=== PATIENT | male | born 1945 | race Caucasian/White ===

== ENCOUNTER 2020-12-10 16:17 | Inpatient (IN) | payer OTHER ==
[2020-12-10] MEDS ORDERED: CEFEPIME 2 GM VIAL IV SCH (18:00)
[2020-12-10 19:38] LABS: Basophils % 0.4 % (0-1.3); Hematocrit 29.4 % (39.6-49.0); Lymphocytes % 5.1 % (15.3-44.8); MPV 8.5 fL (7.6-11.3); Protime INR 1.33; RBC Red Blood Cell Count 3.49 M/uL (4.33-5.43)
[2020-12-10 19:40] LABS: Albumin 2.5 g/dL (3.4-5.0); Bilirubin Total 0.3 mg/dL (0.2-1.0); Potassium 4.5 mmol/L (3.5-5.1); Protein, Total 7.1 g/dL (6.4-8.2)
--- NOTE | 2020-12-10 20:23 | RAD REPORT ---
EXAM DESCRIPTION: RAD - Chest Pa And Lat (2 Views) - 12/10/2020 7:35 pm CLINICAL HISTORY: fever and preop COMPARISON: No comparisons FINDINGS: Lines: None. Lungs: Linear opacities in the left mid lung and right lung base. Pleural: Small left pleural effusion . Cardiac: The heart size is within normal limits. Bones: No acute fractures. Other: Surgical clips overlying the left lung apex. IMPRESSION: Small left effusion with bilateral linear basilar opacities that may reflect atelectasis , pneumonia, and/or scarring.
[2020-12-10] MEDS ORDERED: ONDANSETRON 4 MG/2 ML VIAL IV PRN (20:44)
[2020-12-10] MEDS ORDERED: Ringers Lactate 1,000 ML IV SCH (21:00)
[2020-12-10] MEDS: GABAPENTIN 300 MG CAP PO SCH (21:00)
[2020-12-10] MEDS: ATORVASTATIN 20 MG TAB PO SCH (21:00)
[2020-12-10] MEDS: FLUCONAZOLE 100 MG TAB PO SCH (21:00)
[2020-12-10] MEDS: INSULIN -REGULAR HUMAN 50 UNIT/0.5 ML ML SQ SCH (21:00)
[2020-12-10 21:14] LABS: Blood Morphology Comment NOT SEEN (NOT SEEN); Platelet Estimate ADEQ
[2020-12-10] MEDS: CEFEPIME 2 GM in NA CHLORIDE 0.9% 100 ML IV SCH (23:00)
[2020-12-10] MEDS ORDERED: Gentamicin Inj 120 MG in NA CHLORIDE 0.9% 100 ML IVPB SCH (23:00)
[2020-12-10] MEDS ORDERED: FLUCONAZOLE 100 MG TAB ONE (23:41)
[2020-12-11] MEDS ORDERED: BACITRACIN OINTMENT 14 GM TUBE TOP PRN (00:10)
[2020-12-11] MEDS ORDERED: CEFEPIME 1 GM/VIAL ONE (00:11)
[2020-12-11] MEDS ORDERED: GENTAMICIN SULF 80 MG/2ML INJ ONE (00:12)
[2020-12-11] MEDS ORDERED: GENTAMICIN 80 MG/100 ML BAG 0 MG/0 ML BAG IV ONE (00:13)
[2020-12-11] MEDS: HEPARIN 5000 UNIT/ML 1 ML VIAL SQ SCH ×4 (01:00→16:24)
[2020-12-11 01:58] LABS: Absolute Lymphocytes (CBC) 1.1 K/uL (0.7-4.9); Basophils % 0.2 % (0-1.3); Hematocrit 26.3 % (39.6-49.0); Lymphocytes % 6.3 % (15.3-44.8); MPV 8.4 fL (7.6-11.3); RBC Red Blood Cell Count 3.16 M/uL (4.33-5.43)
[2020-12-11 02:11] LABS: Albumin 2.1 g/dL (3.4-5.0); Bilirubin Direct 0.1 mg/dL (0-0.2); Bilirubin Total 0.3 mg/dL (0.2-1.0); Magnesium 1.7 mg/dL (1.8-2.4); Phosphorus 3.9 mg/dL (2.5-4.9); Potassium 4.4 mmol/L (3.5-5.1); Protein, Total 6.5 g/dL (6.4-8.2)
[2020-12-11 03:05] VITALS: BMI 34.5
--- NOTE | 2020-12-11 06:57 | HP ---
Date of Admission: 12/10/2020 Chief Complaint: Fever and chills. History Of Present Illness: Mr. Vee is a 75-year-old gentleman with type 2 diabetes, history of carotid stenosis with a stent, on aspirin and Plavix, hyperlipidemia, chronic renal insufficiency, and CHF, on Lasix with a history of urothelial carcinoma of the bladder treated by an outside urolog ist over the years. He initially was treated with BCG induction course with recurrences that would t ypically occur more than 6 to 9 months later. He never received a maintenance course of BCG, and on his most recent evaluation by an outpatient urologist, he was noted to have bilateral upper tract gato picious cytologies along with suspicious voided cytologies despite random biopsies performed by them, which found no evidence of malignancy. When I met the patient at the [facility] in [place], I co unseled the patient on the need for repeat operative evaluation and he underwent that at [facility] in the [facility] approximately 1-1/2 months ago. 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 Associated with that, cytology sent from the right renal unit revealed positive for suspicion of urothelial carcinoma. Additionally, the left side orifice was completely stenotic and would not admi t a catheter to perform a retrograde on that side. As such, I resected the left ureteral orifice and the pathology on that side revealed CIS of the bladder. Subsequent placement of a left percutaneous nephroureteral stent was performed about a week and a half ago and the report from the interventiona l radiologist at [facility] in [place] revealed the presence of a mass or stricture in the distal u reter, which they dilated in order to place the nephroureteral stent. The patient is currently sched uled for definitive operative evaluation of the left side with ureteroscopy and plans to internalize the left ureteral stent and remove the nephrostomy tube if possible and also to repeat the retrograde pyelogram on the right side to assess whether the fistula had healed, since I have maintained him ov er the last 6 to 8 weeks with a urethral Lakhnai catheter in place in addition to the stent that was pl aced approximately 2 months ago in order to allow that fistula to hopefully heal and seal. However, in preparation for surgery, which was scheduled next Thursday, the patient called the office today exp laining that he was having fever and chills up to 101 Fahrenheit. When I spoke to the patient this e vening, he confirmed that he had been having fever since yesterday, and he also was having active rig ors upon my evaluation of him. He also noted that today, he had an episode of nausea and vomiting. He, otherwise, denied any abdominal pains or specific flank pains. He had previously had some pain a round the nephrostomy tube site upon his last clinic evaluation about 2 weeks ago. He also noted the presence of some significant suprapubic discomfort, which was relieved by the use of ibuprofen. Past Medical History: As indicated above. Past Surgical History: Again, as indicated in the HPI. Allergies: CIPROFLOXACIN AND SILODOSIN. Medications: Baby aspirin 81 mg daily, Lipitor 40 mg daily, Plavix 75 mg daily, finasteride 5 mg yasmani ly, Uroxatral 10 mg daily, Lasix 20 mg p.o. daily, gabapentin 300 mg p.o. daily, and some other vitam ins and supplements. Physical Examination: General: The patient is awake, alert, and oriented x3. He is in mild distress due to some shaking chills. He has no dyspnea or use of accessory muscles to breathe and there is no active cough. Abdomen: Obese, but soft, nontender and no masses are palpable. The nephrostomy tube is in good position with no tenderness around the insertion site. Genitalia: The urethral Lakhani catheter is in place and there is no sign of meatal erosion. The test es are bilaterally descended and the left testis was mildly tender to palpation. There was no scrota l abnormality noted. Extremities: Lower extremities without edema or calf tenderness/Jeannette sign. I thus assessed the nephrostomy tube by irrigating it gently with 10 cc of preservative-free normal s nafisa after cleansing the opening with an alcohol wipe where I it from the nephrostomy bag. The tube flushed easily and did aspirate some cloudy, but yellow urine. The urine in the bag was o ld dark hematuria appearing. There was no significant urine within the Lakhani catheter bag and the patient notes that the output edgar s been very minimal there. Laboratory: Laboratory analysis on 12/10/2020: White blood count was elevated to 20.1, hemoglobin 9 .3, and platelet count 324 with a left shift, PT/INR 1.33. Creatinine 2.21 with an EGFR of 29 and glucose 155. COVID test negative. Chest x-ray reviewed and notes of small left effusion with bilateral linear basilar opacities that ma y reflect atelectasis, pneumonia, and/or scarring, which in his case likely represents some of the se quelae of his underlying CHF. Assessment And Recommendations: This is a 75-year-old gentleman with type 2 diabetes, carotid stenos is with a stent, on aspirin and Plavix, congestive heart failure, on Lasix, hyperlipidemia, and uroth elial carcinoma of the bladder plus CIS involving the bladder and likely the bilateral upper tracts w ith a right renal pelvic fistulous injury from outside urologist biopsy, now post placement of a left nephroureteral stent due to likely malignant mass or stricture in the distal left ureter at the UVJ with Pseudomonas urinary tract infection causing systemic inflammatory response syndrome and possible early sepsis. We will obtain blood cultures x2 probably and initiate IV antimicrobial therapy double covering the P seudomonas with cefepime 2 g daily and gentamicin 120 mg daily extended interval dosing targeting bet ween 2 and 3 mg/kg synergistic dosing with the cefepime for the Pseudomonas. For his fever, we will provide Tylenol 1000 mg every 6 hours as needed. We will continue his daily baby aspirin and Plavix for now. The Plavix will be held on with the last dose given Thursday in preparation for his surgery next Thursday. We will continue his finasteride, Lasix, and atorvastatin in substitution for his Lipitor/simvastatin . Subcu heparin will be provided for deep venous thrombosis prophylaxis. Insulin sliding scale will be provided in substitution for his metformin for management of his diabet es. We will continue the lisinopril for his blood pressure. We will provide Zofran for nausea. We will also provide a 3-day course of fluconazole for the fungus also identified in his urine, which may be a minor contributor to his complicated infection. While it is likely the blood cultures will return negative, since the patient was taking a dose or a prescription for cefepime that he had been given from an outside emergency department at [facility], this will obscure potentially the presence of any active sepsis. As a result, once the patien t is afebrile for 24 hours, we will plan discharge likely with a PICC line to continue the cefepime o nce daily dosing at home and continue through the date of surgery likely for completion of a 14-day c ourse. Gentle IV fluids for insensible losses will also be provided and we will continue the Lasix. FIDELIA/AIDA Voice ID: [id number]
[2020-12-11] MEDS: INSULIN -REGULAR HUMAN 50 UNIT/0.5 ML ML SQ SCH ×4 (07:30→21:00)
[2020-12-11] MEDS ORDERED: INFLUENZA VACCINE (for 6+ mo) 0.5 ML DOSE IMVAC ONE (08:00)
[2020-12-11] MEDS ORDERED: PNEUMOCOCCAL VACCINE 0.5 ML IMVAC ONE (08:00)
[2020-12-11] MEDS: NA CHLORIDE 0.9% 1,000 ML IV SCH ×2 (08:00→21:58)
[2020-12-11] MEDS: ASPIRIN EC 81 MG TAB PO SCH ×3 (08:51→09:00)
[2020-12-11] MEDS: FLUCONAZOLE 100 MG TAB PO SCH (08:51)
[2020-12-11] MEDS: FINASTERIDE 5 MG TAB PO SCH (08:52)
[2020-12-11] MEDS: CLOPIDOGREL 75 MG TABLET PO SCH ×3 (08:52→09:00)
[2020-12-11] MEDS: ACETAMINOPHEN 500 MG TAB PO PRN ×2 (08:54→16:26)
[2020-12-11] MEDS: BACITRACIN OINTMENT 14 GM TUBE TOP SCH (09:00)
[2020-12-11] MEDS ORDERED: lisinopriL 20 MG TAB PO SCH ×2 (09:00→11:26)
[2020-12-11] MEDS: FUROSEMIDE 20 MG TABLET PO SCH (09:00)
--- NOTE | 2020-12-11 16:42 | P.PN ---
Subjective Date of Service: 12/11/20 Chief Complaint: fever Subjective: Improving Intermittent fevers but no nausea/vomiting. Eating breakfast. Physical Examination - Vital Signs Temperature: 99.6 F Blood Pressure: 94/45 Pulse: 92 Respirations: 20 Pulse Ox (%): 91 - Physical Exam General: Alert, In no apparent distress HEENT: Atraumatic, Normocephalic, Mucous membr. moist/pink Respiratory: Normal air movement Neurological: Normal speech Urinary: Lakhani catheter, Other - Studies Laboratory Data (last 24 hrs) 12/11/20 05:00: Sodium Cancelled, Potassium Cancelled, BUN Cancelled, Creatinine Cancelled, Glucose Cancelled 12/11/20 01:38: Sodium 133 L, Potassium 4.4, BUN 33 H, Creatinine 2.20 H, Glucose 128 H, Phosphorus 3.9, Magnesium 1.7 L, Total Bilirubin 0.3, AST 12 L, ALT 15, Alkaline Phosphatase 74, Lipase 251 12/11/20 01:38: WBC 18.10 H, Hgb 8.4 L, Hct 26.3 L, Plt Count 315 12/10/20 18:59: Sodium 135 L, Potassium 4.5, BUN 31 H, Creatinine 2.21 H, Glucose 155 H, Total Bilirubin 0.3, AST 16, ALT 18, Alkaline Phosphatase 80 12/10/20 18:59: PT 15.3 H, INR 1.33 12/10/20 18:59: WBC 20.10 H*, Hgb 9.3 L, Hct 29.4 L, Plt Count 324 Assessment And Plan - Current Problems (Diagnosis) (1) Complicated UTI (urinary tract infection) Current Visit: Yes Status: Acute - Plan 75yo gentleman with DM2, CKD, carotid stenosis with stent on Plavix + ASA, HTN and hyperlipidemia with iatrogenic right renal pelvic injury resulting in perinephric extravasation requiring a right ureteral stent and Lakhani catheter placement, in the setting of CIS of the bladder and positive upper tract cytologies with CIS at the left UO p NUS placement with Pseudomonas in the urine likely causing a complicated infection, possible urosepsis. - blood cultures pending. Aware of urine cx revealing Pseudomonas sensitive to FQ's, Zosyn, Cefepime, and Meropenem, but because of his Cipro allergy, IV therapy required and being double covered with Cefepime 2g q24h and Gent 120mg (1.5mg/kg) q24h dosing. - continue Plavix till but continue ASA 81mg - DVT ppx with sqHeparin q8h - NS for mild hyponatremia potentially secondary to Lasix routine use or CKD? - Awaiting patient to be afebrile x 24 hours and blood cultures to result to place PICC line for completion of 14 days of Cefepime 2g q24h started 12/10/20 at home on discharge Plan to discharge in: Greater than 2 days - Code Status/Comfort Care Code Status Assessed: Yes Code Status: Full Code
[2020-12-11] MEDS ORDERED: ONDANSETRON 4 MG/2 ML VIAL ONE (17:31)
[2020-12-11] MEDS: ATORVASTATIN 20 MG TAB PO SCH (21:14)
[2020-12-11] MEDS: GABAPENTIN 300 MG CAP PO SCH (22:27)
[2020-12-12] MEDS: CEFEPIME 2 GM in NA CHLORIDE 0.9% 100 ML IV SCH ×2 (00:11→23:48)
[2020-12-12] MEDS: Gentamicin Inj 120 MG in NA CHLORIDE 0.9% 100 ML IVPB SCH ×2 (00:12→23:48)
[2020-12-12] MEDS: HEPARIN 5000 UNIT/ML 1 ML VIAL SQ SCH ×3 (02:09→16:31)
[2020-12-12] MEDS: ACETAMINOPHEN 500 MG TAB PO PRN (02:20)
[2020-12-12] MEDS: INSULIN -REGULAR HUMAN 50 UNIT/0.5 ML ML SQ SCH ×4 (07:30→20:57)
[2020-12-12] MEDS: FINASTERIDE 5 MG TAB PO SCH (08:30)
[2020-12-12] MEDS: FUROSEMIDE 20 MG TABLET PO SCH (08:30)
[2020-12-12] MEDS: CLOPIDOGREL 75 MG TABLET PO SCH (08:31)
[2020-12-12] MEDS: ASPIRIN EC 81 MG TAB PO SCH (08:32)
[2020-12-12] MEDS: FLUCONAZOLE 100 MG TAB PO SCH (08:32)
[2020-12-12] MEDS: BACITRACIN OINTMENT 14 GM TUBE TOP SCH (08:33)
[2020-12-12] MEDS: lisinopriL 20 MG TAB PO SCH (08:34)
[2020-12-12 10:15] LABS: Absolute Lymphocytes (CBC) 1.2 K/uL (0.7-4.9); Basophils % 0.3 % (0-1.3); Hematocrit 26.4 % (39.6-49.0); MPV 8.4 fL (7.6-11.3); RBC Red Blood Cell Count 3.14 M/uL (4.33-5.43)
[2020-12-12 10:24] LABS: Potassium 4.2 mmol/L (3.5-5.1)
[2020-12-12] MEDS: NA CHLORIDE 0.9% 1,000 ML IV SCH ×2 (12:00→20:58)
--- NOTE | 2020-12-12 20:42 | P.PN ---
Subjective Date of Service: 12/12/20 Chief Complaint: fever Subjective: Improving, Doing well Subjective fever overnight but none since the AM. No nausea/vomiting. Eating well. Feeling more back to normal. Physical Examination - Vital Signs Temperature: 98.2 F Blood Pressure: 124/61 Pulse: 84 Respirations: 18 Pulse Ox (%): 90 - Physical Exam General: Alert, In no apparent distress, Oriented x3 Respiratory: Normal air movement Neurological: Normal speech, Normal affect - Studies Laboratory Data (last 24 hrs) 12/12/20 09:55: Sodium 135 L, Potassium 4.2, BUN 40 H, Creatinine 2.20 H, Glucose 109 H 12/12/20 09:55: WBC 11.80 H D, Hgb 8.3 L, Hct 26.4 L, Plt Count 280 Microbiology Data (last 24 hrs): Blood cx's NGTD Assessment And Plan - Current Problems (Diagnosis) (1) Complicated UTI (urinary tract infection) Onset Date: ~12/09/20 Current Visit: Yes Status: Acute - Plan 75yo gentleman with DM2, CKD, carotid stenosis with stent on Plavix + ASA, HTN and hyperlipidemia with iatrogenic right renal pelvic injury resulting in perinephric extravasation requiring a right ureteral stent and Lakhani catheter placement, in the setting of CIS of the bladder and positive upper tract cytolo gies with CIS at the left UO p NUS placement with Pseudomonas in the urine likely causing a complicated infection but no evidence of sepsis, resolving. - blood cultures pending but NGTD. Aware of urine cx revealing Pseudomonas sensitive to FQ's, Zosyn, Cefepime, and Meropenem, but because of his Cipro allergy, IV therapy required and being double covered with Cefepime 2g q24h and Gent 120mg (1.5mg/kg) q24h dosing. - continue Plavix till but continue ASA 81mg - DVT ppx with sqHeparin q8h - NS decreased to 20cc/h - If patient remains afebrile overnight and blood cultures remain NGTD, plan to place PICC line in AM and arrange Home Care for completion of 14 days of Cefepime 2g q24h started 12/10/20 at home on discharge - last dose 12/23/20. - Surgery as scheduled next Thursday. Continue to hold Plavix on discharge but continue ASA 81mg. Discharge Plan: Home Plan to discharge in: 24 Hours Critical Care: No Time Spent Managing PTS Care (In Minutes): 30
[2020-12-12] MEDS: ATORVASTATIN 20 MG TAB PO SCH (20:57)
[2020-12-12] MEDS: GABAPENTIN 300 MG CAP PO SCH (20:57)
[2020-12-13] MEDS: HEPARIN 5000 UNIT/ML 1 ML VIAL SQ SCH ×3 (00:58→17:40)
[2020-12-13 05:14] LABS: Absolute Lymphocytes (CBC) 1.3 K/uL (0.7-4.9); Basophils % 0.2 % (0-1.3); Hematocrit 24.9 % (39.6-49.0); Lymphocytes % 14.3 % (15.3-44.8); MPV 8.2 fL (7.6-11.3); RBC Red Blood Cell Count 2.93 M/uL (4.33-5.43)
[2020-12-13 05:30] LABS: Potassium 4.2 mmol/L (3.5-5.1)
[2020-12-13] MEDS: INSULIN -REGULAR HUMAN 50 UNIT/0.5 ML ML SQ SCH ×4 (07:30→21:00)
[2020-12-13] MEDS: ACETAMINOPHEN 500 MG TAB PO PRN ×2 (08:46→22:46)
[2020-12-13] MEDS: FUROSEMIDE 20 MG TABLET PO SCH (08:47)
[2020-12-13] MEDS: ASPIRIN EC 81 MG TAB PO SCH (08:47)
[2020-12-13] MEDS: lisinopriL 20 MG TAB PO SCH (08:47)
[2020-12-13] MEDS: FINASTERIDE 5 MG TAB PO SCH (08:47)
[2020-12-13] MEDS: BACITRACIN OINTMENT 14 GM TUBE TOP SCH (08:48)
[2020-12-13] MEDS: NA CHLORIDE 0.9% 1,000 ML IV SCH (15:07)
[2020-12-13] MEDS: ATORVASTATIN 20 MG TAB PO SCH (20:11)
[2020-12-13] MEDS: GABAPENTIN 300 MG CAP PO SCH (20:11)
--- NOTE | 2020-12-13 20:40 | P.DS ---
Admission Date: 12/10/20 Discharge Date: 12/14/20 Disposition: DC HOME/HOME HEALTH CARE Discharge Condition: GOOD Reason for Admission: fever Consultations: none Procedures: PICC line and IV abx - Problems (1) Complicated UTI (urinary tract infection) Onset Date: ~12/09/20 Current Visit: Yes Status: Acute Brief History of Present Illness: 75yo gentleman with urothelial Ca of the bladder and CIS recurrent and likely involving the upper tracts in the setting of a right iatrogenic renal pelvic injury causing a fistula into the perinephric space presents s/p right ureteral stent placement and Lakhani catheter with Left PCNU placed over a week ago with complicated UTI with Pseudomonas identified on surveillance culture taken preoperatively. Blood cultures have been NGTD so far and patient's WBC and renal function have all improved with combination Cefepime 2g q24h + Gent 120mg q24h IV. He has been afebrile for >24 hours and his hemodynamic profile has also improved. Home care has been established to continue to provide him with the remaining of 14 days of total therapy with Cefepime 2g daily IV via PICC. He is back to his baseline - tolerating a diabetic diet, making large quantities of urine via PCNU catheter and the Lakhani catheter was removed 2 days ago. He is ready for discharge home and will undergo repeat COVID testing tomorrow in preparation for surgery next Thursday. Hospital Course: Cefepime 2g IV q24h + Gent 120mg IV q24h started 12/10/20 continuing along with Fluconazole 200mg PO daily for 3 days only. Vital Signs/Physical Exam: Temp Pulse Resp BP Pulse Ox 98.7 F 71 20 118/59 L 94 12/13/20 16:00 12/13/20 16:00 12/13/20 16:00 12/13/20 16:00 12/13/20 16:00 General: Alert, In no apparent distress, Oriented x3 HEENT: Atraumatic Respiratory: Normal air movement Gastrointestinal: Soft and benign Musculoskeletal: Other (no Jeannette's sign) Neurological: Normal gait, Normal speech Urinary: Other Laboratory Data at Discharge: WBC 9.00 K/uL (4.3-10.9) D 12/13/20 05:00 Hgb 8.1 g/dL (13.6-17.9) L 12/13/20 05:00 Hct 24.9 % (39.6-49.0) L 12/13/20 05:00 Plt Count 297 K/uL (152-406) 12/13/20 05:00 PT 15.3 SECONDS (9.5-12.5) H 12/10/20 18:59 INR 1.33 12/10/20 18:59 Sodium 140 mmol/L (136-145) 12/13/20 05:00 Potassium 4.2 mmol/L (3.5-5.1) 12/13/20 05:00 BUN 38 mg/dL (7-18) H 12/13/20 05:00 Creatinine 1.86 mg/dL (0.55-1.3) H 12/13/20 05:00 Glucose 96 mg/dL (74-106) 12/13/20 05:00 Phosphorus 3.9 mg/dL (2.5-4.9) 12/11/20 01:38 Magnesium 1.7 mg/dL (1.8-2.4) L 12/11/20 01:38 Total Bilirubin 0.3 mg/dL (0.2-1.0) 12/11/20 01:38 AST 12 U/L (15-37) L 12/11/20 01:38 ALT 15 U/L (12-78) 12/11/20 01:38 Alkaline Phosphatase 74 U/L (45-117) 12/11/20 01:38 Lipase 251 U/L (73-393) 12/11/20 01:38 Home Medications: Gabapentin 300 mg PO DAILY 12/11/20 Simvastatin 20 mg PO DAILY 12/11/20 Atorvastatin Calcium [Lipitor*] 20 mg PO BEDTIME tab 12/13/20 Finasteride [Proscar*] 5 mg PO DAILY tab 12/13/20 Furosemide [Lasix*] 20 mg PO DAILY tab 12/13/20 lisinopriL [Prinivil*] 40 mg PO DAILY tab 12/13/20 Physician Discharge Instructions: Hold plavix but continue aspirin 81mg uninterrupted through surgery. Cefepime 2g IV q24h through 12/23/20 Flush nephrostomy tube and stent with 10cc PFNS q24-48 hours Diet: ADA Activity: Ad ramsey Time spent managing pt's care (in minutes): 45
[2020-12-13] MEDS: CEFEPIME 2 GM in NA CHLORIDE 0.9% 100 ML IV SCH (22:32)
[2020-12-13] MEDS: Gentamicin Inj 120 MG in NA CHLORIDE 0.9% 100 ML IVPB SCH (22:32)
[2020-12-14] MEDS: HEPARIN 5000 UNIT/ML 1 ML VIAL SQ SCH ×3 (00:02→17:00)
[2020-12-14 05:39] LABS: Absolute Lymphocytes (CBC) 1.6 K/uL (0.7-4.9); Basophils % 0.5 % (0-1.3); Hematocrit 26.3 % (39.6-49.0); MPV 8.3 fL (7.6-11.3); RBC Red Blood Cell Count 3.11 M/uL (4.33-5.43)
[2020-12-14] MEDS: INSULIN -REGULAR HUMAN 50 UNIT/0.5 ML ML SQ SCH ×4 (07:30→20:20)
[2020-12-14] MEDS: ACETAMINOPHEN 500 MG TAB PO PRN ×2 (08:40→20:27)
[2020-12-14] MEDS: lisinopriL 20 MG TAB PO SCH (08:41)
[2020-12-14] MEDS: ASPIRIN EC 81 MG TAB PO SCH (08:42)
[2020-12-14] MEDS: BACITRACIN OINTMENT 14 GM TUBE TOP SCH (08:43)
[2020-12-14] MEDS: FINASTERIDE 5 MG TAB PO SCH (08:43)
[2020-12-14] MEDS: FUROSEMIDE 20 MG TABLET PO SCH (08:43)
--- NOTE | 2020-12-14 19:19 | RAD REPORT ---
EXAM DESCRIPTION: RAD - Chest Single View - 12/14/2020 7:08 pm CLINICAL HISTORY: PICC line placement COMPARISON: Chest Pa And Lat (2 Views) dated 12/10/2020 FINDINGS: Lines: Left subclavian approach PICC with tip overlying the proximal SVC. Lungs: Linear opacities in left lung again noted. Increasing bilateral ill-defined airspace opacities . Pleural: Left pleural effusion . Cardiac: Enlarged cardiac silhouette. Bones: No acute fractures. Other: IMPRESSION: Left subclavian approach PICC with tip overlying the proximal SVC in satisfactory positi on. Increasing bilateral airspace disease that could reflect multifocal pneumonia.
[2020-12-14] MEDS ORDERED: NA CHLORIDE 0.9% 100 ML ONE (19:50)
[2020-12-14] MEDS: GABAPENTIN 300 MG CAP PO SCH (20:20)
[2020-12-14] MEDS: ATORVASTATIN 20 MG TAB PO SCH (20:20)
[2020-12-14] MEDS: Gentamicin Inj 120 MG in NA CHLORIDE 0.9% 100 ML IVPB SCH (20:21)
[2020-12-14] MEDS: CEFEPIME 2 GM in NA CHLORIDE 0.9% 100 ML IV SCH (20:22)
[2020-12-14 21:34] VITALS: BP 142/66; TEMP 98
[2020-12-14 22:19] VITALS: O2SAT 93
--- NOTE | 2020-12-17 18:33 | EKG ---
Test Date: 2020-12-14 Test Time: 13:38:31 [employer]: MEASUREMENT RESULTS: Intervals: Rate: 80 ME: 150 QRSD: 142 QT: 394 QTc: 454 [place]: P: 56 ME: 150 QRS: -2 T: -30 INTERPRETIVE STATEMENTS: Normal sinus rhythm Right bundle branch block Abnormal ECG No previous ECG available for comparison Electronically Signed On 12-17-20 18:24:38 DEATH CLEARANCE COORDINATOR by Temo Jackson
--- OUTSIDE RECORDS SUMMARY | 2020-12-22 06:42 | XMS REPORT | Continuity of Care Document ---
:1945 Author Organization [facility] t Address [address] [place] [address] Care Team Providers Name Role Phone Neri He Primary Care Physician PING WOOD Attending Clinician Unavailable NERI HE Attending Clinician Unavailable MILTON HOLLIDAY Attending Clinician Unavailable Jordan Johnson Vaccine - Pfizer Attending Clinician Unavail able CLAUDIA WOOD Attending Clinician Unavailable Nina CASILLAS Attending Clinician Denise Singh MD Attending Clinician Pancho Conway CRNA Attending Clinician Mg Attending Clinician Unavailable Claudia Wood MD Attending Clinician Rod LEON Attending Clinician Unavailable Aly Matthew Attending Clinician Unavailable Francisco Byrd Attending Clinician VASCULAR Attending Clinician Unavailable RUBY Attending Clinician Unavailable ALBER Attending Clinician Unavailable VASCULAR Attending Clinician Unavailable WILBERTO Attending Clinician Unavailable NINA Villatoroitting Clinician Unavailable Payers Payer Name Policy Type Policy Number Effective Date Expiration Date Aly kohler MEDICARE PART A [id number] 2008 AND B 00:00:00 MEDICARE A B [id number] 2008 00:00:00 JASON HMO/POS/OPEN [id number] 2017 ACCESS 00:00:00 FORMERLY [facility] [id number] 2020 00:00:00 OPEN ACCESS PLUS - [id number] CIGNA MEDICARE PART A [id number] \\T\\ B - MEDICARE FOR LIFE - [id number] Problems Condition Condition Condition Status Onset Resolution Last Treating Co mments Source Name Details Category Date Date Treatment Clinician Date 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 0-13 Health kidney kidney 00:00: disease disease 00 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 00 Urine Urine Disease Active 2020-02 UT cytology cytology 0-13 Health abnormal abnormal 00:00: 00 Minor Minor Disease Active 2020-02 UT contusion contusion 0-13 Heal th of right of right 00:00: kidney kidney 00 Malignant Malignant Disease Active 2020-02 UT neoplasm neoplasm 0-13 Health of urachus of urachus 00:00: 00 Malignant Malignant Disease Active [facility] 9[facility] of urinary of urinary 00:00: Me dical bladder bladder 00 Center Renal Renal Disease Active UT hematoma, hematoma, 7-23 Heal th right right 00:00: 00 Abdominal Abdominal Disease Active UT pain pain 7-23 Health 00:00: 00 Hyperchole Hyperchole Disease Active Overview : [facility] sterolemia sterolemia 6-28 [facility] 00:00: g of this 00 note might be different from the original. Formattin g of this note might be different from the original. Converted from Centricit y:Descrip tion - DYSLIPIDE MIALast Assessmen t & Plan: Formattin g of this note is different from the original. ASSESSMEN T:The patient's hyperlipi demia is unchanged Diagnosti cs Reviewed: BP Readings from Last 3 Encounter s: 12/22/18 126/74 07/26/18 140/70 05/10/18 128/62 The 10-year ASCVD risk score (Juaquin MAURO Jr., et al., 2013) is: 26.9% Values used to calculate the score: Age: 73 years Sex: Male Is Non-Hispa pham : No Diabetic: No Tobacco smoker: No Systolic Blood Pressure: 126 mmHg Is BP treated: Yes HDL Cholester ol: 42 mg/dL Total Cholester ol: 152 mg/dLPLAN :Check appropria te labs. Continue medicine at current dose. We'll adjust pending lab results if needed. Keep up with specialis tsReturn 06/2019 for HTN / chronic med visit AND SOONER if other issues arise Chronic Chronic Disease Active Overview: [facility] obstructiv obstructiv 08-06 [facility] e e 00:00: g of this pulmonary pulmonary 00 note disease disease might be different from the original. [facility] of this note might be different from the original. Converted from Centricit y:Descrip tion - COPDLast Assessmen t & Plan: [facility] of this note might be different from the original. assessmen t:Control ledPlan:m eds refilledC ontinue at current dosesKeep up with specialis tsFu with me 11/2018 - fasting medicare wellness Hyperlipid Hyperlipid Disease Active Overview : MD emia emia 08-06 [facility] 00:00: g of this 00 note might be different from the original. [facility] of this note might be different from the original. Converted from Centricit y:Descrip tion - DYSLIPIDE MIALast Assessmen t & Plan: Formatt[facility] g of this note is different from the original. ASSESSMEN T:The patient's hyperlipi demia is unchanged Diagnosti cs Reviewed: BP Readings from Last 3 Encounter s: 12/22/18 126/74 07/26/18 140/70 05/10/18 128/62 The 10-year ASCVD risk score (Brightwatersliliam MAURO Jr., et al., 2013) is: 26.9% Values used to calculate the score: Age: 73 years Sex: Male Is Non-Hispa pham : No Diabetic: No Tobacco smoker: No Systolic Blood Pressure: 126 mmHg Is BP treated: Yes HDL Cholester ol: 42 mg/dL Total Cholester ol: 152 mg/dLPLAN :Check appropria te labs. Continue medicine at current dose. We'll adjust pending lab results if needed. 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 Formattin g of this note might be different from the original. Converted from Centricit y:Descrip tion - ERECTILE DYSFUNCTI ON, ORGANIC Nicotine Nicotine Disease Active Overview: [facility] dependence dependence 08-06 [facility] , , 00:00: g of this uncomplica uncomplica 00 note elizabeth johnson might be different from the original. Formattin g of this note might be different from the original. Converted from Centricit y:Descrip tion - TOBACCO ABUSE Occlusion Occlusion Disease Active UT and and 08-06 Health stenosis stenosis 00:00: of of 00 unspecifie unspecifie d carotid d carotid artery artery Pain of Pain of Disease Active 2019-02 UT left lower left lower 03-10 He alth extremity extremity 00:00: 00 Left leg Left leg Disease Active 2019-02 UT swelling swelling 03-10 Health 00:00: 00 Postoperat Postoperat Disease Active 2019-02 U T jordan jordan 03-04 Health examinatio examinatio 00:00: n n 00 Venous Venous Disease Active UT insufficie insufficie 09-19 He alth ncy ncy 00:00: (chronic) (chronic) 00 (periphera (periphera l) l) Obesity Obesity Disease Active UT 8-11 Health 00:00: 00 Diabetes Diabetes Disease Active UT mellitus mellitus 09-19 Health 00:00: 00 Dyslipidem Dyslipidem Disease Active U T ia ia 8 Health 00:00: 00 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, type 2, 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 00 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 09-19 Health stenosis stenosis 00:00: 00 Benign Benign Disease Active UT essential essential 8 Heal hypertensi hypertensi 00:00: on on 00 PSA PSA Disease Active UT elevation elevation 5-15 Heal th 00:00: 00 Other long Other long Disease Active U T term term 06-06 Health (current) (current) 00:00: drug drug 00 therapy therapy Need for Need for Disease Active UT hepatitis hepatitis 06-06 Heal C C 00:00: screening screening 00 test test 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 Last Assessmen t & Plan: [facility] of this note might be different from the original. ASSESSMEN T:The patient's condition is unchanged .PLAN:Ref er to cardiolog y in house for further evaluatio n of short of breath (has not seen his cardiolgo isty in 2 years) - ensure heart is okay and if normal - will proceed with lung / COPD workup Neuropathy Neuropathy Disease Active Overview : [facility] of left of left 6-17 [facility] lower lower 00:00: g of this extremity extremity 00 note might be different from the original. Last Assessmen t & Plan: Formattin g of this note might be different from the original. ASSESSMEN T:The patient's condition is new.PLAN: ddx could be from post procedure pain (< 6 weeks) vs inflammat ion vs low level infection vs nerve damage from venous procedure .- rx gaabapent in to help with nerve pain Risks and benefits discussed with patient. Patient verbalize d their understan ding. - continue compresse ion velco brandages / following with vascular and ID- keep 12/2018 visit with me or sooner if need Carbohydra Carbohydra Disease Active U T te te 912 Health intoleranc intoleranc 00:00: e e 00 Ventral Ventral Disease Active 2016-02 Overview: UT hernia hernia 0-09 [facility] without without 00:00: g of this obstructio obstructio 00 note n or n or might be gangrene gangrene different from the original. [facility] of this note might be different from the original. Stable for many years.Dec lines surgery Screening Screening Disease Active UT for for 6-12 Health abdominal abdominal 00:00: aortic aortic 00 aneurysm aneurysm Blood in Blood in Disease Active UT stool stool 4-04 Health 00:00: 00 Diverticul Diverticul Disease Active U T itis of itis of - Health large large 00:00: intestine intestine 00 Gastrointe Gastrointe Disease Active U T stinal stinal 04-06 Health hemorrhage hemorrhage 00:00: associated associated 00 with with intestinal intestinal diverticul diverticul itis itis Prediabete Prediabete Disease Active 2014-02 Overview : UT s s 2-13 [facility] 00:00: g of this 00 note might be different from the original. [facility] of this note might be different from the original. Converted from IoT Technologiescit y:Descrip tion - PRE-DIABE TESLast Assessmen t & Plan: [facility] of this note might be different from the original. ASSESSMEN T:The patient's condition is unchanged .PLAN:Jasmyn ck appropria te labs. Continue medicine at current dose. We'll adjust pending lab results if needed. [facility] AND SOONER if other issues arise Hearing Hearing Disease Active 2013-02 Overview: UT loss loss 2-05 [facility] 00:00: g of this 00 note might be different from the original. [facility] of this note might be different from the original. Converted from [employer] Technologiescit y:Descrip tion - HEARING LOSS Localized Localized Disease Active Overview: UT edema edema 9-19 [facility] 00:00: g of this 00 note might be different from the original. Formatt[facility] g of this note might be different from the original. Converted from [employer] Technologiescit y:Descrip tion - LEG EDEMA, BILATERAL Last Assessmen t & Plan: Formattin g of this note might be different from the original. ASSESSMEN T:The patient's condition is deteriora elizabeth.PLAN: - stpped lasix- will try chlorthal idone for few weeks -- see if helps with swelling and pt can tolerate without side effects Malignant Malignant Disease Active Overview: [facility] neoplasm neoplasm 8-28 [facility] of urinary of urinary 00:00: g of this bladder bladder 00 note might be different from the original. Formatt[facility] g of this note might be different from the original. Converted from Centricit y:Descrip tion - BLADDER CANCERLas t Assessmen t & Plan: Formattin g of this note might be different from the original. 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 Formattin g of this note might be different from the original. Converted from Centricit y:Descrip tion - POLYCYTHE MONICA, SECONDARY History of History of Problem Resolve Univers Transition Transition d it y of al cell al cell [place] carcinoma carcinoma Phys ici of bladder of bladder an s History of History of Problem Resolve Univers kidney kidney d ity of problems problems [place] [facility] Dyslipidem Dyslipidem Problem Active U nivers ia ia ity of [place] [facility] Benign Benign Problem Active Univers essential essential ity of hypertens[place] hypertens[place] Physici ans Diabetes Diabetes Problem Active Unive rs mellitus mellitus ity of type 2, type 2, [place] controlled controlled Ph ysici ans Chronic Chronic Problem Active Univers neuropathi neuropathi it y of c pain c pain [place] [facility] Benign Benign Problem Active Univers prostatic prostatic ity of hyperplasi hyperplasi [place] Physici ans Macular Macular Problem Active Univers degenerati degenerati it y of on on [place] [facility] Venous Venous Problem Active Univers insufficie insufficie it y of ncy ncy [place] (chronic) (chronic) Phys ici (periphera (periphera an s l) l) Other Other Problem Active Univers eczema eczema ity of [place] [facility] ans Other long Other long Problem Active U nivers term term ity of (current) ([place] drug drug Physici therapy therapy ans Need for Need for Problem Active Unive rs hepatitis hepatitis ity of C C [place] screening screening Phys ici test test ans Hepatitis Hepatitis Problem Active Uni vers B carrier B carrier ity of [place] [facility] ans Colon Colon Problem Active Univers polyp polyp ity of [place] [facility] PSA PSA Problem Active Univers elevation elevation ity of [place] [facility] Carotid Carotid Problem Active Univers artery artery ity of stenosis stenosis [place] [facility] Preoperati Preoperati Problem Active U nivers ve ve ity of cardiovasc cardiovasc [place] ular ular Physici examinatio examinatio an s n n Obesity Obesity Problem Active Univers [facility] [place] Physici ans Postoperat Postoperat Problem Active U nivers jordan jordan ity of examinatio examinatio [place] Physici ans Pain of Pain of Problem Active Univers left lower left lower it y of extremity extremity [place] [facility] Left leg Left leg Problem Active Unive rs swelling swelling ity of [place] Physici ans Allergies, Adverse Reactions, Alerts Allergy Allergy Status Severity Reaction(s) Onset Inactive Treating Comm ents Source Name Type Date Date Clinician Ciproflo Allergy Active UT xacin to 6-24 Health substanc 00:00: e 00 Ciproflo Propensi Active Devang xacin ty to 2-25 College adverse 00:00: of reaction 00 Medicin s to e drug Ciproflo Propensi Active Severe 2015-02 CIPROFLOX [place] alfonso xacin ty to 0-01 [facility] HCL: College Hcl adverse 00:00: - of reaction 00 Converted Medic in s to from e drug Centricit y CIPROFLO Allergy Active High Rash 2015-[address] [facility]ACIN 0-01 [facility] 00:[facility] Center SILODOSI Allergy Active High Rash 2015-[address] [facility] [facility] N 0-01 [facility] - 00:[facility]: Medical 00 Center Ciproflo Drug Active Rash 2015-[address] [facility] [address] xacin Allergy 0-01 [facility] - 00:00: Medical 00 [place] Silodosi Drug Active Rash 2015-[address] [facility] n Allergy 0-01 [facility] - 00:00: Medical 00 Center Silodosi Allergy Active Severe 2015-02 SILODOSIN UT n to 0-01 : rash - Health substanc 00:00: Converted e 00 from Centricit y"RAPAFLO " Ciproflo Allergy Active Rash 2015-02 UT xacin to 0-01 Health substanc 00:00: e 00 NO KNOWN Allergy Active [facility] Family History Family Member Diagnosis Comments Start Date Stop Date Source Sister Family history of [facility] [place] hypertension Physicians Sister Family history of [facility] [place] coagulation disorder Phys icians Social History Social Habit Start Date Stop Date Quantity Comments Source History of tobacco Smoker [facility] - use [facility] History SDOH [facility] - Alcohol Frequency Medical Center History SDOH [facility] - Alcohol Std Drinks [facility] History SDOH [facility] - Alcohol Binge Medical Taye ter Exposure to Not sure [facility] SARS-CoV-2 (event) Alcohol intake 2020-10-22 2020-10-22 Ex-drinker BARBARA Baez es - 00:00:00 00:00:00 (finding) [facility] Cigarettes smoked 2020-10-18 2020-10-18 BARBARA Lombardo - current (pack per 00:00:00 00:00:00 Medical Center day) - Reported Tobacco use and 2020-10-18 2020-10-18 Never used BARBARA Diegos - exposure 00:00:00 00:00:00 [facility] Alcohol Comment 2020-10-18 2020-10-18 none since BARBARA Randall kes - 00:00:00 00:00:00 07/1990 [facility] Sex Ass[birth year] At [birth year] [facility] - 00:00:00 00:00:00 [facility] Smoking Status Start Date Stop Date Source Unknown if ever smoked [facility] Former smoker 2020-10-18 00:00:00 2020-10-18 00:00:00 [facility] - [facility] Medications Ordered Filled Start Stop Current Ordering Indication Dosage Frequency Signature Comments Components Source Medication Medication Date Date Medication? Clinician (SIG) Name Name metFORMIN 2020-02- No 500mg QD Take 500 UT (Glucophage 0-13 10-13 mg by Health ) 500 MG 15:13: 00:00 mouth 1 tablet 04 :00 (one) time each day with breakfast. cephalexin 2020-02 Yes 250mg Q.5D Take 250 UT (Keflex) 0-13 mg by Health 250 MG 14:41: mouth 2 capsule 15 (two) times a day. Taking due to Urinary catheter Multiple 2020-02 Yes UT Vitamins-Mi 0-13 Health nerals 14:39: (Mens 40 Multivitami n) tablet Krill Oil 2020-02 Yes UT 350 MG 0-13 Health capsule 14:39: 40 Flaxseed, 2020-02 Yes UT Linseed, 0-13 Health (Flaxseed 14:39: Oil) oil 40 finasteride 2020-02 Yes 5mg 5 mg. UT (Proscar) 5 0-13 Health MG tablet 14:39: 40 Bacillus 2020-02 Yes UT Coagulans-I 0-13 Health nulin 14:39: (Probiotic) 40 1-250 BILLION-MG capsule aspirin 81 2020-02 Yes 81mg 81 mg. UT MG EC 0-13 Health tablet 14:39: 40 omega-3 2020-02 Yes 1{tbl} Take 1 UT 1000 MG 0-13 tablet by Health capsule 14:39: mouth. 40 Multiple 2020-02 Yes Q.5D Take by UT Vitamins-Mi 0-13 mouth Health nerals 14:39: twice a (ICAPS 40 day. AREDS 2 PO) cholecalcif 2020-02 Yes 5000U QD Take 5,000 UT levi (D3-5) 0-13 Units by [facility] th 5,000 Units 14:39: mouth 1 tablet 40 (one) time each day. LACTOBACILL 2020-02- No Take by UT US 0-13 10-13 mouth. Health PROBIOTIC 14:36: 00:00 PO 57 :00 clopidogrel 2020-02- No UT (Plavix) 0-13 10-13 Health 300 MG 14:33: 00:00 tablet 45 :00 Multiple 2020-02- No 1{tbl} Take 1 UT Vitamins-Mi 0-13 10-13 tablet by He alth nerals 10:37: 00:00 mouth. (MULTIVITAM 23 :00 INS/MINERAL S ADULT PO) Multiple 2020-02 Yes Q.5D Take by UT Vitamins-Mi 0-13 mouth Health nerals 10:37: twice a (ICAPS 21 day. AREDS 2 PO) cholecalcif 2020-02 Yes 5000U QD Take 5,000 UT levi (D3-5) 0-13 Units by Heal th 5,000 Units 10:37: mouth 1 tablet 21 (one) time each day. metFORMIN 2020-02 Yes [id number] 500mg QD Take 1 UT (Glucophage 0-13 tablet Health ) 500 MG 00:00: (500 mg tablet 00 total) by mouth 1 (one) time each day with breakfast. clopidogrel 2020-02 Yes [id number] 75mg QD Take 1 UT (Plavix) 75 0-13 tablet (75 He alth MG tablet 00:00: mg total) 00 by mouth 1 (one) time each day. needs appointmen t atorvastati 2020-02- Yes [id number] 20mg QD Take 1 UT n (Lipitor) 0-13 04-12 tablet (20 H ealth 20 MG 00:00: 04:59 mg total) tablet 00 :00 by mouth 1 (one) time each day. lisinopril 2020-02- Yes [id number] 20mg QD Take 1 UT 20 MG 0-13 01-12 tablet (20 Health tablet 00:00: 05:59 mg total) 00 :00 by mouth 1 (one) time each day. clopidogrel Yes [id number] 75mg QD Take 1 UT (Plavix) 75 9-23 tablet (75 He alth MG tablet 00:00: mg total) 00 by mouth 1 (one) time each day. needs appointmen t clopidogrel Yes [id number] 75mg QD Take 1 UT (Plavix) 75 9-23 tablet (75 He alth MG tablet 00:00: mg total) 00 by mouth 1 (one) time each day. needs appointmen t clopidogrel 2020- No [id number] 75mg QD Take 1 UT (Plavix) 75 9-23 10-13 tablet (75 H ealth MG tablet 00:00: 00:00 mg total) 00 :00 by mouth 1 (one) time each day. needs appointmen t furosemide Yes 20mg Take [address] (LASIX) 20 9-11 by mouth [facility] - MG tablet 17:32: every Medical 04 other day. Center furosemide Yes 40mg Take [address] (LASIX) 40 9-11 by mouth [facility] - MG tablet 17:32: every Medical 04 other day. [place] metFORMIN Yes 500mg Take [address] [facility] (GLUCOPHAGE 9-11 mg by [facility]ukes - ) 500 MG 17:32: mouth Medical tablet 04 daily with Center breakfast. alfuzosin Yes 10mg QD Take [address] (UROXATRAL) 9-11 by mouth Luke s - 10 mg 24 hr 17:32: daily. Medi harini tablet 04 [place] finasteride Yes 5mg QD Take [address] (PROSCAR) 5 9-11 by mouth Luke s - mg tablet 17:32: daily. Medica l [address] [place] [address] lisinopriL Yes 20mg QD Take [address] (PRINIVIL,Z 9-11 by mouth Luke s - ESTRIL) 20 17:32: daily. Medic al MG tablet [address] [place] [address] clopidogreL Yes 75mg QD Take [address] (PLAVIX) 75 9-11 by mouth Luke s - mg tablet 17:32: daily. Medica l [address] [place] [address] simvastatin Yes 20mg QD Take [address] (ZOCOR) 20 9-11 by mouth [facility] - MG tablet 17:32: nightly. Medi harini [address] [place] [address] gabapentin Yes 300mg QD Take [address] (NEURONTIN) 9-11 mg by [facility] - 300 MG 17:32: mouth Medical capsule 04 daily. [place] multivit-mi Yes QD Take by [facility] n/folic/vit 9-11 mouth [facility] - K/lycop 17:32: daily. Medical (ONE-A-DAY [address] [place] [address] MEN'S 50 PLUS ORAL) vit Yes Q.5D Take by [facility] C/E/zinc 9-11 mouth 2 [facility] - ox/carol/lut 17:32: (two) Medic al /zeax 04 times Center (ICAPS daily. AREDS2 ORAL) aspirin 81 Yes 81mg QD Take [address] MG EC 9-11 by mouth [facility] - tablet 17:32: daily. Medical [address] [place] [address] KRILL OIL Yes Q.5D Take by [facility] t ORAL 9-11 mouth 2 [facility] - 17:32: (two) Medical 04 times Center daily. FLAXSEED Yes QD Take by [facility] ORAL 9-11 mouth [facility] - 17:32: daily. [address] lactobacill Yes 1{capsu QD Take [address] us 9-11 le} capsule by [facility]ukes - rhamnosus, 17:32: mouth Medica l GG, 04 daily. [facility] 10 billion cell capsule cholecalcif Yes 5000U QD Take 5,[address] levi, 9-11 Units by [facility]ukes - vitamin D3, 17:32: mouth Medic al 125 mcg 04 daily. Center (5,000 unit) Tab tamsulosin Yes .4mg QD Take 1 [facility] (FLOMAX) 9-10 capsule [facility] - 0.4 mg Cap 00:00: (0.4 mg Medi harini 24 hr 00 total) by Center capsule mouth daily. tamsulosin Yes UT (Flomax) 9-10 Health 0.4 MG 24 00:00: hr capsule 00 traMADol 0 Yes UT (Ultram) 50 9-10 Health MG tablet 00:00: 00 traMADol 2020-0 Yes if needed. UT (Ultram) 50 9-10 Health MG tablet 00:00: 00 cephalexin 2020- Yes 500mg Q.5D Take [address] (KEFLEX) 9-10 10-20 capsule [facility] - 500 MG 00:00: 23:59 (500 mg Medical capsule 00 :00 total) by Center mouth 2 (two) times daily for 40 days. tamsulosin 2020- No UT (Flomax) 9- 10-13 Health 0.4 MG 24 00:00: 00:00 hr capsule 00 :00 traMADoL 2020-0 2020- No 50mg Take [address] [facility] (ULTRAM) 50 9-10 09-20 tablet (50 L ukes - mg tablet 00:00: 23:59 mg total) Me dical 00 :00 by mouth Center every 8 (eight) hours as needed for Pain for up to 10 days. Max Daily Amount: 150 mg tamsulosin 2020- No .4mg QD Take [address] (FLOMAX) 9-10 09-10 capsule [facility] - 0.4 mg Cap 00:00: 00:00 (0.4 mg Med ical 24 hr 00 :00 total) by Center capsule mouth daily. cephalexin 2020- No 500mg Q.5D Take [address] (KEFLEX) 9-10 09-10 capsule [facility] - 500 MG 00:00: 00:00 (500 mg Medical capsule 00 :00 total) by Center mouth 2 (two) times daily for 40 days. cephalexin 2020- No 500mg Q.[id number] Take [address] (KEFLEX) 9-10 -10 [id number] capsule L ukes - 500 MG 00:00: 00:00 3D (500 mg Medical capsule 00 :00 total) by Center mouth 3 (three) times daily for 40 days. traMADoL No 50mg Take [address] [facility] (ULTRAM) 50 10-19 tablet (50 L ukes - mg tablet 00:00: 00:00 mg total) Me dical 00 :00 by mouth Center every 8 (eight) hours as needed for Pain for up to 10 days. Max Daily Amount: 150 mg oxybutynin 2020- No 5mg Take [address] [facility] (DITROPAN) 10-19 tablet (5 [place] es - 5 MG tablet 00:00: 00:00 mg total) Medical 00 :00 by mouth 3 Center (three) times daily as needed (For bladder spasms). No known No [facility] [facility] medications 10-05 [place] 14:58: of 29 Medicin e omega-3 Yes 1{tbl} Take 1 UT 1000 MG 7-27 tablet by Health capsule 21:22: mouth. 44 omega-3 Yes 1{tbl} Take 1 UT 1000 MG 7-27 tablet by Health capsule 21:22: mouth. 44 Multiple Yes UT Vitamins-Mi 09-04 Health nerals 21:21: (Mens 18 Multivitami n) tablet metFORMIN Yes 500mg 500 mg. UT (Glucophage 09-04 Health ) 500 MG 21:21: tablet 18 Krill Oil Yes UT 350 MG 09-04 Health capsule 21:21: 18 Flaxseed, Yes UT Linseed, 09-04 Health (Flaxseed 21:21: Oil) oil 18 finasteride Yes 5mg 5 mg. UT (Proscar) 5 - Health MG tablet 21:21: 18 Multiple Yes 1{tbl} Take 1 UT Vitamins-Mi -27 tablet by a [facility] nerals 21:21: mouth. (MULTIVITAM 18 INS/MINERAL S ADULT PO) LACTOBACILL Yes Take by UT US 09-04 mouth. Health PROBIOTIC 21:21: PO 18 Multiple Yes UT Vitamins-Mi -27 Health nerals 21:21: (Mens 18 Multivitami n) tablet metFORMIN Yes 500mg 500 mg. UT (Glucophage 09-04 Health ) 500 MG 21:21: tablet 18 Krill Oil Yes UT 350 MG - Health capsule 21:21: 18 Flaxseed, Yes UT Linseed, 09-04 Health (Flaxseed 21:21: Oil) oil 18 finasteride Yes 5mg 5 mg. UT (Proscar) 5 09-04 Health MG tablet 21:21: 18 Multiple Yes 1{tbl} Take 1 UT Vitamins-Mi - tablet by a [facility] nerals 21:21: mouth. (MULTIVITAM 18 INS/MINERAL S ADULT PO) LACTOBACILL Yes Take by UT US 09-04 mouth. Health PROBIOTIC 21:21: PO 18 Bacillus Yes UT Coagulans-I 09-04 Health nulin 21:11: (Probiotic) 41 1-250 BILLION-MG capsule aspirin 81 Yes 81mg 81 mg. UT MG EC - Health tablet 21:11: 41 Bacillus Yes UT Coagulans-I 09-04 Health nulin 21:11: (Probiotic) 41 1-250 BILLION-MG capsule aspirin 81 0 Yes 81mg 81 mg. UT MG EC 7- Health tablet 21:11: 41 omega-3 Yes 1{tbl} Take 1 UT 1000 MG 7-27 tablet by Health capsule 16:22: mouth. 44 omega-3 Yes 1{tbl} Take 1 UT 1000 MG 7-27 tablet by Health capsule 16:22: mouth. 44 omega-3 Yes 1{tbl} Take 1 UT 1000 MG 7-27 tablet by Health capsule 16:22: mouth. 44 omega-3 Yes 1{tbl} Take 1 UT 1000 MG 7-27 tablet by Health capsule 16:22: mouth. 44 Multiple Yes UT Vitamins-Mi -27 Health nerals 16:21: (Mens 18 Multivitami n) tablet metFORMIN Yes 500mg 500 mg. UT (Glucophage 09-04 Health ) 500 MG 16:21: tablet 18 Krill Oil Yes UT 350 MG 09-04 Health capsule 16:21: 18 Flaxseed, Yes UT Linseed, 09-04 Health (Flaxseed 16:21: Oil) oil 18 finasteride Yes 5mg 5 mg. UT (Proscar) 5 09-04 Health MG tablet 16:21: 18 Multiple Yes 1{tbl} Take 1 UT Vitamins-Mi 09-04 tablet by [facility] nerals 16:21: mouth. (MULTIVITAM 18 INS/MINERAL S ADULT PO) LACTOBACILL Yes Take by [facility] 09-04 mouth. Health PROBIOTIC 16:21: PO 18 Multiple Yes UT Vitamins-Mi 09-04 Health nerals 16:21: (Mens 18 Multivitami n) tablet metFORMIN Yes 500mg 500 mg. UT (Glucophage 09-04 Health ) 500 MG 16:21: tablet 18 Krill Oil Yes UT 350 MG 09-04 Health capsule 16:21: 18 Flaxseed, Yes UT Linseed, 09-04 Health (Flaxseed 16:21: Oil) oil 18 finasteride Yes 5mg 5 mg. UT (Proscar) 5 09-04 Health MG tablet 16:21: 18 Multiple Yes 1{tbl} Take 1 UT Vitamins-Mi 09-04 tablet by [facility] nerals 16:21: mouth. (MULTIVITAM 18 INS/MINERAL S ADULT PO) LACTOBACILL Yes Take by [facility] 09-04 mouth. Health PROBIOTIC 16:21: PO 18 Multiple Yes UT Vitamins-Mi 09-04 Health nerals 16:21: (Mens 18 Multivitami n) tablet metFORMIN Yes 500mg 500 mg. UT (Glucophage 09-04 Health ) 500 MG 16:21: tablet 18 Krill Oil Yes UT 350 MG 09-04 Health capsule 16:21: 18 Flaxseed, Yes UT Linseed, 09-04 Health (Flaxseed 16:21: Oil) oil 18 finasteride Yes 5mg 5 mg. UT (Proscar) 5 09-04 Health MG tablet 16:21: 18 Multiple Yes 1{tbl} Take 1 UT Vitamins-Mi 09-04 tablet by [facility] nerals 16:21: mouth. (MULTIVITAM 18 INS/MINERAL S ADULT PO) LACTOBACILL Yes Take by [facility] 09-04 mouth. Health PROBIOTIC 16:21: PO 18 Multiple Yes UT Vitamins-Mi 09-04 Health nerals 16:21: (Mens 18 Multivitami n) tablet metFORMIN Yes 500mg 500 mg. UT (Glucophage 09-04 Health ) 500 MG 16:21: tablet 18 Krill Oil Yes UT 350 MG 09-04 Health capsule 16:21: 18 Flaxseed, Yes UT Linseed, 09-04 Health (Flaxseed 16:21: Oil) oil 18 finasteride Yes 5mg 5 mg. UT (Proscar) 5 09-04 Health MG tablet 16:21: 18 LACTOBACILL Yes Take by [facility] 09-04 mouth. Health PROBIOTIC 16:21: PO 18 Bacillus 0 Yes UT Coagulans-I 09-04 Health nulin 16:11: (Probiotic) 41 1-250 BILLION-MG capsule aspirin 81 0 Yes 81mg 81 mg. UT MG EC 09-04 Health tablet 16:11: 41 Bacillus 0 Yes UT Coagulans-I 09-04 Health nulin 16:11: (Probiotic) 41 1-250 BILLION-MG capsule aspirin 81 2020-0 Yes 81mg 81 mg. UT MG EC 09-04 Health tablet 16:11: 41 Bacillus 0 Yes UT Coagulans-I 09-04 Health nulin 16:11: (Probiotic) 41 1-250 BILLION-MG capsule aspirin 81 2020-0 Yes 81mg 81 mg. UT MG EC 09-04 Health tablet 16:11: 41 Bacillus 2020-0 Yes UT Coagulans-I 09-04 Health nulin 16:11: (Probiotic) 41 1-250 BILLION-MG capsule aspirin 81 2020-0 Yes 81mg 81 mg. UT MG EC 09-04 Health tablet 16:11: 41 simvastatin 2020-0 1- No 40mg 40 mg. UT (Zocor) 40 08-06 Health MG tablet 19:28: 00:00 35 :00 potassium 2020- No 10meq 10 mEq. UT chloride ER 08-06 Health (Micro-K) 19:28: 00:00 10 MEQ ER 35 :00 capsule lisinopril 2020- No 40mg 40 mg. UT 40 MG 08-06 Health tablet 19:28: 00:00 35 :00 furosemide 2020- No 20mg 20 mg. UT (Lasix) 20 08-06 Health MG tablet 19:28: 00:00 35 :00 Gabapentin, 2020- No 300mg 300 mg. U T Once-Daily, 08-06 Health 300 MG 19:28: 00:00 tablet 35 :00 clopidogrel Yes UT (Plavix) 08-06 Health 300 MG 18:50: tablet 05 clopidogrel Yes UT (Plavix) 08-06 Health 300 MG 18:50: tablet 05 Multiple Yes UT Vitamins-Mi 08-06 Health nerals 18:50: (Mens 05 Multivitami n) tablet metFORMIN Yes 500mg 500 mg. UT (Glucophage 08-06 Health ) 500 MG 18:50: tablet 05 Krill Oil Yes UT 350 MG 08-06 Health capsule 18:50: 05 Flaxseed, Yes UT Linseed, 08-06 Health (Flaxseed 18:50: Oil) oil 05 finasteride Yes 5mg 5 mg. UT (Proscar) 5 08-06 Health MG tablet 18:50: 05 clopidogrel Yes UT (Plavix) 08-06 Health 300 MG 18:50: tablet 05 Bacillus Yes UT Coagulans-I 08-06 Health nulin 18:50: (Probiotic) 05 1-250 BILLION-MG capsule aspirin 81 Yes 81mg 81 mg. UT MG EC 08-06 Health tablet 18:50: 05 Multiple Yes 1{tbl} Take 1 UT Vitamins-Mi 08-06 tablet by [facility] nerals 18:50: mouth. (MULTIVITAM 05 INS/MINERAL S ADULT PO) LACTOBACILL Yes Take by UT 08-06 mouth. Health PROBIOTIC 18:50: PO 05 omega-3 Yes 1{tbl} Take 1 UT 1000 MG 6-28 tablet by Health capsule 18:50: mouth. 05 clopidogrel Yes UT (Plavix) 6-28 Health 300 MG 13:50: tablet 05 clopidogrel 0 Yes UT (Plavix) 6-28 Health 300 MG 13:50: tablet 05 clopidogrel Yes UT (Plavix) 6-28 Health 300 MG 13:50: tablet 05 clopidogrel Yes UT (Plavix) 6-28 Health 300 MG 13:50: tablet 05 simvastatin Yes [id number] 40mg Take 1 UT (Zocor) 40 6-28 tablet (40 Hea lth MG tablet 00:00: mg total) 00 by mouth every night. lisinopril Yes [id number] 40mg QD Take 1 U T 40 MG 6-28 tablet (40 Health tablet 00:00: mg total) 00 by mouth 1 (one) time each day. furosemide Yes [id number] 20mg QD Take 1 UT (Lasix) 20 6-28 tablet (20 Hea lth MG tablet 00:00: mg total) 00 by mouth 1 (one) time each day. potassium Yes [id number] 10meq QD Take 1 UT chloride ER 6-28 capsule Healt h (Micro-K) 00:00: (10 mEq 10 MEQ ER 00 total) by capsule mouth 1 (one) time each day. Gabapentin, Yes [id number] 300mg QD Take 300 UT Once-Daily, 6-28 mg by Health 300 MG 00:00: mouth 1 tablet 00 (one) time each day. simvastatin Yes [id number] 40mg Take 1 UT (Zocor) 40 6-28 tablet (40 Hea lth MG tablet 00:00: mg total) 00 by mouth every night. lisinopril Yes [id number] 40mg QD Take 1 U T 40 MG 6-28 tablet (40 Health tablet 00:00: mg total) 00 by mouth 1 (one) time each day. furosemide Yes [id number] 20mg QD Take 1 UT (Lasix) 20 6-28 tablet (20 Hea lth MG tablet 00:00: mg total) 00 by mouth 1 (one) time each day. potassium 2020-0 Yes [id number] 10meq QD Take 1 UT chloride ER 6-28 capsule Healt h (Micro-K) 00:00: (10 mEq 10 MEQ ER 00 total) by capsule mouth 1 (one) time each day. Gabapentin, 2020-0 Yes [id number] 300mg QD Take 300 UT Once-Daily, 6-28 mg by Health 300 MG 00:00: mouth 1 tablet 00 (one) time each day. simvastatin 2020-0 Yes [id number] 40mg Take 1 UT (Zocor) 40 6-28 tablet (40 Hea lth MG tablet 00:00: mg total) 00 by mouth every night. lisinopril 2020-0 Yes [id number] 40mg QD Take 1 U T 40 MG 6-28 tablet (40 Health tablet 00:00: mg total) 00 by mouth 1 (one) time each day. furosemide 2020- Yes [id number] 20mg QD Take 1 UT (Lasix) 20 6-28 tablet (20 Hea lth MG tablet 00:00: mg total) 00 by mouth 1 (one) time each day. potassium 2020-0 Yes [id number] 10meq QD Take 1 UT chloride ER 6-28 capsule Healt h (Micro-K) 00:00: (10 mEq 10 MEQ ER 00 total) by capsule mouth 1 (one) time each day. Gabapentin, 2020- Yes [id number] 300mg QD Take 300 UT Once-Daily, 6-28 mg by Health 300 MG 00:00: mouth 1 tablet 00 (one) time each day. simvastatin 2020-0 Yes [id number] 40mg Take 1 UT (Zocor) 40 6-28 tablet (40 Hea lth MG tablet 00:00: mg total) 00 by mouth every night. lisinopril 2020-0 Yes [id number] 40mg QD Take 1 U T 40 MG 6-28 tablet (40 Health tablet 00:00: mg total) 00 by mouth 1 (one) time each day. furosemide 2020-0 Yes [id number] 20mg QD Take 1 UT (Lasix) 20 6-28 tablet (20 Hea lth MG tablet 00:00: mg total) 00 by mouth 1 (one) time each day. potassium 2020-0 Yes [id number] 10meq QD Take 1 UT chloride ER 6-28 capsule Healt h (Micro-K) 00:00: (10 mEq 10 MEQ ER 00 total) by capsule mouth 1 (one) time each day. Gabapentin, 2020- Yes [id number] 300mg QD Take 300 UT Once-Daily, 6-28 mg by Health 300 MG 00:00: mouth 1 tablet 00 (one) time each day. simvastatin 2020- Yes [id number] 40mg Take 1 UT (Zocor) 40 6-28 tablet (40 Hea lth MG tablet 00:00: mg total) 00 by mouth every night. lisinopril Yes [id number] 40mg QD Take 1 U T 40 MG 6-28 tablet (40 Health tablet 00:00: mg total) 00 by mouth 1 (one) time each day. furosemide 2020- Yes [id number] 20mg QD Take 1 UT (Lasix) 20 6-28 tablet (20 Hea lth MG tablet 00:00: mg total) 00 by mouth 1 (one) time each day. potassium Yes [id number] 10meq QD Take 1 UT chloride ER 6-28 capsule Healt h (Micro-K) 00:00: (10 mEq 10 MEQ ER 00 total) by capsule mouth 1 (one) time each day. Gabapentin, Yes [id number] 300mg QD Take 300 UT Once-Daily, 6-28 mg by Health 300 MG 00:00: mouth 1 tablet 00 (one) time each day. simvastatin 2020- Yes [id number] 40mg Take 1 UT (Zocor) 40 6-28 tablet (40 Hea lth MG tablet 00:00: mg total) 00 by mouth every night. lisinopril 2020- Yes [id number] 40mg QD Take 1 U T 40 MG 6-28 tablet (40 Health tablet 00:00: mg total) 00 by mouth 1 (one) time each day. furosemide 2020-0 Yes [id number] 20mg QD Take 1 UT (Lasix) 20 6-28 tablet (20 Hea lth MG tablet 00:00: mg total) 00 by mouth 1 (one) time each day. potassium 2020-0 Yes [id number] 10meq QD Take 1 UT chloride ER 6-28 capsule Healt h (Micro-K) 00:00: (10 mEq 10 MEQ ER 00 total) by capsule mouth 1 (one) time each day. Gabapentin, Yes [id number] 300mg QD Take 300 UT Once-Daily, 6-28 mg by Health 300 MG 00:00: mouth 1 tablet 00 (one) time each day. simvastatin 2020- Yes [id number] 40mg Take 1 UT (Zocor) 40 6-28 tablet (40 Hea lth MG tablet 00:00: mg total) 00 by mouth every night. furosemide Yes [id number] 20mg QD Take 1 UT (Lasix) 20 6-28 tablet (20 Hea lth MG tablet 00:00: mg total) 00 by mouth 1 (one) time each day. Gabapentin, Yes [id number] 300mg QD Take 300 UT Once-Daily, 6-28 mg by Health 300 MG 00:00: mouth 1 tablet 00 (one) time each day. simvastatin Yes [id number] 40mg Take 1 UT (Zocor) 40 6-28 tablet (40 Hea lth MG tablet 00:00: mg total) 00 by mouth every night. lisinopril Yes [id number] 40mg QD Take 1 U T 40 MG 6-28 tablet (40 Health tablet 00:00: mg total) 00 by mouth 1 (one) time each day. furosemide Yes [id number] 20mg QD Take 1 UT (Lasix) 20 6-28 tablet (20 Hea lth MG tablet 00:00: mg total) 00 by mouth 1 (one) time each day. potassium Yes [id number] 10meq QD Take 1 UT chloride ER 6-28 capsule Healt h (Micro-K) 00:00: (10 mEq 10 MEQ ER 00 total) by capsule mouth 1 (one) time each day. Gabapentin, 2020- Yes [id number] 300mg QD Take 300 UT Once-Daily, 6-28 mg by Health 300 MG 00:00: mouth 1 tablet 00 (one) time each day. lisinopril 2020-2020- No [id number] 40mg QD Take 1 UT 40 MG 6-28 10-13 tablet (40 Health tablet 00:00: 00:00 mg total) 00 :00 by mouth 1 (one) time each day. potassium 2020-0 2020- No [id number] 10meq QD Take 1 UT chloride ER 6-28 10-13 capsule Heal th (Micro-K) 00:00: 00:00 (10 mEq 10 MEQ ER 00 :00 total) by capsule mouth 1 (one) time each day. clobetasol 0 Yes UT (Temovate) 07-09 Health 0.05 % 00:00: cream clobetasol 0 Yes UT (Temovate) 07-09 Health 0.05 % 00:00: cream clobetasol 0 Yes UT (Temovate) 07-09 Health 0.05 % 00:00: cream clobetasol 0 Yes UT (Temovate) 07-09 Health 0.05 % 00:00: cream clobetasol 2020-0 Yes UT (Temovate) 07-09 Health 0.05 % 00:00: cream clobetasol 2020-0 Yes UT (Temovate) 07-09 Health 0.05 % 00:00: cream clobetasol 2020-0 Yes UT (Temovate) 07-09 Health 0.05 % 00:00: cream clobetasol 0 Yes UT (Temovate) 07-09 Health 0.05 % 00:00: cream 00 betamethaso 2020-0 Yes UT ne 5-04 Health dipropionat 00:00: e 00 (Diprolene) 0.05 % cream betamethaso 2020-0 Yes UT ne 5-04 Health dipropionat 00:00: e 00 (Diprolene) 0.05 % cream betamethaso 2020-0 Yes UT ne 5-04 Health dipropionat 00:00: e 00 (Diprolene) 0.05 % cream betamethaso 2020-0 Yes UT ne 5-04 Health dipropionat 00:00: e 00 (Diprolene) 0.05 % cream betamethaso 2020-0 Yes UT ne 5-04 Health dipropionat 00:00: e 00 (Diprolene) 0.05 % cream betamethaso 2021-0 Yes UT ne 06-12 Health dipropionat 00:00: e 00 (Diprolene) 0.05 % cream betamethaso Yes UT ne 06-12 Health dipropionat 00:00: e 00 (Diprolene) 0.05 % cream betamethaso Yes UT ne 06-12 Health dipropionat 00:00: e 00 (Diprolene) 0.05 % cream clopidogrel Yes UT (Plavix) 75 5-02 Health MG tablet 00:00: 00 clopidogrel 0 Yes UT (Plavix) 75 5-02 Health MG tablet 00:00: 00 clopidogrel Yes UT (Plavix) 75 5-02 Health MG tablet 00:00: 00 potassium 2020- No UT chloride CR 06-03 Health (Klor-Con 00:00: 00:00 M10) 10 MEQ 00 :00 ER tablet gabapentin 2020- No UT (Neurontin) 05-17 Health 300 MG 00:00: 00:00 capsule 00 :00 Alfuzosin Alfuzosin 2020-0 Yes NEIL 1 QD TAKE 1 [facility] HCl ER 10 HCl ER 10 5-27 SATTAR TABLET BY [facility] of MG Oral MG Oral 00:00: M.D. MOUTH [place] Tablet Tablet 00 EVERY DAY Physic i Extended Extended ans Release 24 Release 24 Hour Hour alfuzosin 2020-0 Yes 10mg 10 mg. UT (Uroxatral) 5-27 Health 10 MG 24 hr 00:00: tablet 00 alfuzosin 2020-0 Yes 10mg 10 mg. UT (Uroxatral) 5-27 Health 10 MG 24 hr 00:00: tablet 00 alfuzosin 2020-0 Yes 10mg 10 mg. UT (Uroxatral) 5-27 Health 10 MG 24 hr 00:00: tablet 00 alfuzosin 2020-0 Yes 10mg 10 mg. UT (Uroxatral) 5-27 Health 10 MG 24 hr 00:00: tablet 00 alfuzosin 2020-0 Yes 10mg 10 mg. UT (Uroxatral) 5-27 Health 10 MG 24 hr 00:00: tablet 00 alfuzosin 2020-0 Yes 10mg 10 mg. UT (Uroxatral) 5-27 Health 10 MG 24 hr 00:00: tablet 00 alfuzosin 2020-0 Yes 10mg 10 mg. UT (Uroxatral) 5-27 Health 10 MG 24 hr 00:00: tablet 00 alfuzosin 2020-0 Yes 10mg 10 mg. [facility] (Uroxatral) 5-27 Health 10 MG 24 hr 00:00: tablet 00 nitroglycer 2018-02 Yes Take 1 tab UT in -18 as needed Health (Nitrostat) 00:00: SL at the 0.4 MG SL 00 onset of tablet chest pain, take a 2nd dose after 5 min,If pain persistent go to the ER. nitroglycer 2018-02 Yes Take 1 tab UT in 18 as needed Health (Nitrostat) 00:00: SL at the 0.4 MG SL 00 onset of tablet chest pain, take a 2nd dose after 5 min,If pain persistent go to the ER. nitroglycer 2018-02 Yes Take 1 tab UT in 18 as needed Health (Nitrostat) 00:00: SL at the 0.4 MG SL 00 onset of tablet chest pain, take a 2nd dose after 5 min,If pain persistent go to the ER. nitroglycer 2018-02 Yes Take 1 tab UT in 18 as needed Health (Nitrostat) 00:00: SL at the 0.4 MG SL 00 onset of tablet chest pain, take a 2nd dose after 5 min,If pain persistent go to the ER. nitroglycer 2018-02 Yes Take 1 tab UT in 18 as needed Health (Nitrostat) 00:00: SL at the 0.4 MG SL 00 onset of tablet chest pain, take a 2nd dose after 5 min,If pain persistent go to the ER. nitroglycer 2018-02 Yes Take 1 tab UT in 18 as needed Health (Nitrostat) 00:00: SL at the 0.4 MG SL 00 onset of tablet chest pain, take a 2nd dose after 5 min,If pain persistent go to the ER. nitroglycer 2018-02 Yes Take 1 tab UT in 18 as needed Health (Nitrostat) 00:00: SL at the 0.4 MG SL 00 onset of tablet chest pain, take a 2nd dose after 5 min,If pain persistent go to the ER. nitroglycer 2018-02 Yes Take 1 tab UT in 18 as needed Health (Nitrostat) 00:00: SL at the 0.4 MG SL 00 onset of tablet chest pain, take a 2nd dose after 5 min,If pain persistent go to the ER. Furosemide Furosemide Yes 1 tab Un rima 20 MG Oral 20 MG Oral every it y of Tablet Tablet other day [place] and 2 tabs [facility] every ans other day. metFORMIN metFORMIN Yes Q0.5D TAKE 1 Un rima HCl - 500 HCl - 500 TABLET ity of MG Oral MG Oral TWICE [place] Tablet Tablet DAILY Physici ans Finasteride Finasteride Yes TAKE ONE [facility] 5 MG Oral 5 MG Oral TABLET BY ity of Tablet Tablet MOUTH [place] DAILY [facility]ici ans Potassium Potassium Yes TAKE 1 Uni vers Chloride ER Chloride ER CAPSULE BY ity of 10 MEQ Oral 10 MEQ Oral MOUTH ONCE [place] Capsule Capsule DAILY [facility] Extended Extended ans Release Release Gabapentin Gabapentin Yes 1 QD TAKE 1 U nivers 300 MG TABS 300 MG TABS TABLET ity of DAILY. [place] [facility] ans Lisinopril Lisinopril Yes .5 QD TAKE 0.5 [facility] 40 MG Oral 40 MG Oral TABLET i ty of Tablet Tablet DAILY [place] [facility] ans Simvastatin Simvastatin Yes .5 QD TAKE 0.5 [facility] 40 MG Oral 40 MG Oral TABLET i ty of Tablet Tablet DAILY [place] [facility] ans Aspirin 81 Aspirin 81 Yes 1 QD TAKE 1 U nivers MG Oral MG Oral TABLET ity of Tablet Tablet DAILY. [place] Delayed Delayed [facility]ici Release Release ans Krill Oil Krill Oil Yes Unive rs CAPS CAPS ity of [place] [facility] ans Flaxseed Flaxseed Yes [facility] Oil OIL Oil OIL ity of [place] [facility] ans Mens Mens Yes [facility] Multivitami Multivitami i ty of n TABS n TABS [place] [facility] Probiotic Probiotic Yes Unive rs CAPS CAPS ity of [place] [facility] ans Clopidogrel Clopidogrel Yes U nivers Bisulfate Bisulfate ity o f TABS TABS [place] [facility] ans Immunizations Ordered Immunization Filled Immunization Date Status Commen ts Source Name Name Covid-19 [facility] 2020-11-16 Completed [facility] SARS-CoV-2 00:00:00 Vaccination Influenza, High Dose 2020-11-16 Completed [facility] Seasonal 00:00:00 Covid-19 [employer] 2020-11-16 Completed [facility] SARS-CoV-2 00:00:00 Vaccination Influenza, High Dose 2020-11-16 Completed [facility] Seasonal 00:00:00 Covid-19 [employer] 2020-11-16 [facility] SARS-CoV-2 00:00:00 Vaccination Influenza, High Dose 2020-11-16 [facility]:00:00 Influenza, High Dose 2018-12-22 [facility]pleted [facility], 00:00:00 Preservative Free Influenza, High Dose 2018-12-22 [facility]pleted [facility], 00:00:00 Preservative Free Influenza, High Dose 2018-12-22 Completed [facility] 00:00:00 Influenza, High Dose 2018-12-22 Completed [facility] 00:00:00 Influenza, High Dose 2018-12-22 Completed [facility] 00:00:00 Influenza, High Dose 2018-12-22 Completed [facility] 00:00:00 Influenza, High Dose 2018-12-22 Completed [facility] 00:00:00 Influenza, High Dose 2018-12-22 [facility]pleted [facility], 00:00:00 Preservative Free Fluzone High-Dose 0.5 2018-10-10 Completed [facility] versity [facility] Intramuscular 00:00:00 [facility] Suspension Prefilled Syringe Influenza, High Dose 2018-10-10 Completed [facility] Season[facility], 00:00:00 Preservative Free Influenza, High Dose 2018-10-10 [facility]pleted [facility], 00:00:00 Preservative Free Influenza, High Dose 2018-10-10 Completed [facility] 00:00:00 Influenza, High Dose 2018-10-10 Completed [facility]al 00:00:00 Influenza, High Dose 2018-10-10 Completed [facility]al 00:00:00 Influenza, High Dose 2018-10-10 Completed [facility] 00:00:00 Influenza, High Dose 2018-10-10 Completed [facility] Seasonal 00:00:00 Influenza, High Dose 2018-10-10 [facility]pleted [facility], 00:00:00 Preservative Free Influenza, 2017-12-08 [facility]pleted [facility] recombinant, 00:00:00 quadrivalent, injectable, preservative free Influenza, 2017-12-08 Completed [facility] recombinant, 00:00:00 quadrivalent, injectable, preservative free Influenza, 2017-12-08 Completed [facility] quadrivalent, 00:00:00 injectable, preservative free Influenza, 2017-12-08 Completed [facility] quadrivalent, 00:00:00 injectable, preservative free Influenza, 2017-12-08 Completed [facility] quadrivalent, 00:00:00 injectable, preservative free Influenza, 2017-12-08 Completed [facility] quadrivalent, 00:00:00 injectable, preservative free Influenza, 2017-12-08 Completed [facility] quadrivalent, 00:00:00 injectable, preservative free Influenza, 2017-12-08 Completed [facility] recombinant, 00:00:00 quadrivalent, injectable, preservative free Influenza, 2016-11-17 Completed [facility] injectable, 00:00:00 quadrivalent, preservative free Influenza, 2016-11-17 Completed [facility] injectable, 00:00:00 quadrivalent, preservative free Influenza, 2016-11-17 Completed [facility] injectable, 00:00:00 quadrivalent, preservative free Influenza, 2016-11-17 Completed [facility] injectable, 00:00:00 quadrivalent, preservative free Influenza, 2016-11-17 Completed [facility] injectable, 00:00:00 quadrivalent, preservative free Influenza, 2016-11-17 Completed [facility] injectable, 00:00:00 quadrivalent, preservative free Influenza, 2016-11-17 Completed [facility] injectable, 00:00:00 quadrivalent, preservative free Influenza, 2016-11-17 Completed [facility] injectable, 00:00:00 quadrivalent, preservative free Influenza, High Dose 2015-12-05 [facility]pleted [facility], 00:00:00 Preservative Free Influenza, High Dose 2015-12-05 [facility]pleted [facility], 00:00:00 Preservative Free Influenza, High Dose 2015-12-05 [facility]pleted [facility] 00:00:00 Influenza, High Dose 2015-12-05 Completed [facility] 00:00:00 Influenza, High Dose 2015-12-05 Completed [facility] 00:00:00 Influenza, High Dose 2015-12-05 Completed [facility] 00:00:00 Influenza, High Dose 2015-12-05 [facility]pleted [facility] 00:00:00 Influenza, High Dose 2015-12-05 [facility]pleted [facility], 00:00:00 Preservative Free Prevnar 13 2015-01-19 Completed [facility] Intramuscular 00:00:00 [place] [facility] Suspension Pneumococcal 2015-01-19 Completed [facility] Conjugate PCV 13 00:00:00 Pneumococcal 2015-01-19 Completed [facility] Conjugate PCV 13 00:00:00 Pneumococcal 2015-01-19 Completed [facility] Conjugate PCV 13 00:00:00 Pneumococcal 2015-01-19 Completed [facility] Conjugate PCV 13 00:00:00 Pneumococcal 2015-01-19 Completed [facility] Conjugate PCV 13 00:00:00 Pneumococcal 2015-01-19 Completed [facility] Conjugate PCV 13 00:00:00 Pneumococcal 2015-01-19 Completed [facility] Conjugate PCV 13 00:00:00 Pneumococcal 2015-01-19 Completed [facility] Conjugate PCV 13 00:00:00 Influenza, High Dose 2014-12-04 [facility]pleted [facility], 00:00:00 Preservative Free Influenza, High Dose 2014-12-04 [facility]pleted [facility], 00:00:00 Preservative Free Influenza, High Dose 2014-12-04 [facility]pleted [facility] 00:00:00 Influenza, High Dose 2014-12-04 Completed [facility] 00:00:00 Influenza, High Dose 2014-12-04 Completed [facility] 00:00:00 Influenza, High Dose 2014-12-04 Completed [facility] 00:00:00 Influenza, High Dose 2014-12-04 [facility]pleted [facility] 00:00:00 Influenza, High Dose 2014-12-04 [facility]pleted [facility], 00:00:00 Preservative Free Influenza, 2013-11-11 Completed [facility] injectable, 00:00:00 quadrivalent, preservative free Influenza, 2013-11-11 Completed [facility] injectable, 00:00:00 quadrivalent, preservative free Influenza, 2013-11-11 Completed [facility] injectable, 00:00:00 quadrivalent, preservative free Influenza, 2013-11-11 Completed [facility] injectable, 00:00:00 quadrivalent, preservative free Influenza, 2013-11-11 Completed [facility] injectable, 00:00:00 quadrivalent, preservative free Influenza, 2013-11-11 Completed [facility] injectable, 00:00:00 quadrivalent, preservative free Influenza, 2013-11-11 Completed [facility] injectable, 00:00:00 quadrivalent, preservative free Influenza, 2013-11-11 Completed [facility] injectable, 00:00:00 quadrivalent, preservative free Pneumococcal 2010-01-09 Completed [facility] Polysaccharide PPV23 00:00:00 Pneumococcal 2010-01-09 Completed [facility] Polysaccharide PPV23 00:00:00 Pneumococcal 2010-01-09 Completed [facility] Polysaccharide PPV23 00:00:00 Pneumococcal 2010-01-09 Completed [facility] Polysaccharide PPV23 00:00:00 Pneumococcal 2010-01-09 Completed [facility] Polysaccharide PPV23 00:00:00 Pneumococcal 2010-01-09 Completed [facility] Polysaccharide PPV23 00:00:00 Pneumococcal 2010-01-09 Completed [facility] Polysaccharide PPV23 00:00:00 Pneumococcal 2010-01-09 Completed [facility] Polysaccharide PPV23 00:00:00 Vital Signs Vital Name Observation Time Observation Value Comments Source HEIGHT 2020-10-19 170.2 cm 07:00:00 WEIGHT 2020-10-19 100.925 kg 07:00:00 HEIGHT 2020-10-18 171.5 cm 12:40:00 WEIGHT 2020-10-18 101.152 kg 12:40:00 HEIGHT 2020-11-28 171.5 cm 10:40:00 WEIGHT 2020-11-28 101.606 kg 10:40:00 Systolic blood 2020-11-21 128 mm[Hg] [facility] pressure 19:41:00 Diastolic blood 2020-11-21 66 mm[Hg] [facility] pressure 19:41:00 Heart rate 2020-11-21 80 /min [facility] 19:41:00 Body temperature 2020-11-21 36.39 Lu [facility] 19:41:00 Respiratory rate 2020-11-21 18 /min [facility] 19:41:00 Body height 2020-11-21 171.5 cm [facility] 19:41:00 Body weight 2020-11-21 100.835 kg [facility] 19:41:00 BMI 2020-11-21 34.30 kg/m2 [facility] 19:41:00 Systolic blood 2020-11-21 128 mm[Hg] [facility] pressure 19:41:00 Diastolic blood 2020-11-21 66 mm[Hg] [facility] pressure 19:41:00 Heart rate 2020-11-21 80 /min [facility] 19:41:00 Body temperature 2020-11-21 36.39 Lu [facility] 19:41:00 Respiratory rate 2020-11-21 18 /min [facility] 19:41:00 Body height 2020-11-21 171.5 cm [facility] 19:41:00 Body weight 2020-11-21 100.835 kg [facility] 19:41:00 BMI 2020-11-21 34.30 kg/m2 [facility] 19:41:00 HEIGHT 2020-10-19 170.2 cm 07:00:00 WEIGHT 2020-10-19 100.925 kg 07:00:00 HEIGHT 2020-10-18 171.5 cm 12:40:00 WEIGHT 2020-10-18 101.152 kg 12:40:00 Systolic blood 2020-10-05 129 mm[Hg] [facility] Diastolic blood 2020-10-05 67 mm[Hg] [facility] pressure 19:54:00 of Medicine Heart rate 2020-10-05 106 /min [facility] 19:54:00 of Medicine Body temperature 2020-10-05 36.67 Lu [facility] Juan M ege 19:54:00 of Medicine Respiratory rate 2020-10-05 20 /min [facility] Juan M ege 19:54:00 of Medicine Body height 2020-10-05 170.2 cm [facility] 19:54:00 of Medicine Body weight 2020-10-05 100.699 kg [facility] 19:54:00 of Medicine BMI 2020-10-05 34.77 kg/m2 [facility] 19:54:00 of Medicine Diastolic blood 2020-08-06 74 mm[Hg] [facility] pressure 18:47:00 Heart rate 2020-08-06 90 /min [facility] 18:47:00 Body temperature 2020-08-06 36.61 Lu [facility] 18:47:00 Respiratory rate 2020-08-06 16 /min [facility] 18:47:00 Body height 2020-08-06 171.5 cm [facility] 18:47:00 Body weight 2020-08-06 107.956 kg [facility] 18:47:00 BMI 2020-08-06 36.73 kg/m2 [facility] 18:47:00 Oxygen saturation 2020-08-06 95 /min [facility] in Arterial blood 18:47:00 by Pulse oximetry Systolic blood 2020-08-06 164 mm[Hg] [facility] pressure 18:47:00 Systolic blood 2020-10-19 157 mm[Hg] [facility] pressure 16:20:00 [facility] Diastolic blood 2020-10-19 70 mm[Hg] [facility] - pressure 16:20:00 [facility] Heart rate 2020-10-19 99 /min [facility] - 16:20:00 [facility] Body temperature 2020-10-19 36.11 Lu [facility] - 16:20:00 [facility] Respiratory rate 2020-10-19 13 /min [facility] - 16:20:00 [facility] Oxygen saturation 2020-10-19 94 /min [facility] - in Arterial blood 16:20:00 [facility] nter by Pulse oximetry Body height 2020-10-19 170.2 cm [facility] - 07:00:00 [facility] Body weight 2020-10-19 100.925 kg [facility] - 07:00:00 [facility] BMI 2020-10-19 34.85 kg/m2 [facility] - 07:00:00 [facility] Systolic blood 2019-09-20 162 mm[Hg] [facility] [place] [facility] Diastolic blood 2019-09-20 82 mm[Hg] [facility] 09:18:00 Position: [place] [facility] Body height 2019-09-20 67.5 [in_us] [facility] 09:18:00 [place] [facility] Weight 2019-09-20 232 [lb_av] [facility] 09:18:00 [place] [facility] Body mass index 2019-09-20 35.8 kg/m2 [place] [facility] f (BMI) [Ratio] 09:18:00 [place] [facility] Heart Rate 2019-09-20 82 /min [facility] 09:18:00 [place] [facility] Systolic blood 2019-06-07 146 mm[Hg] Location: TANYA; [facility] 10:55:00 Position: [place] [facility] Sitting Diastolic blood 2019-06-07 70 mm[Hg] Location: [facility] 10:55:00 Position: [place] [facility] S[facility] Heart Rate 2019-06-07 87 /min [facility] 10:55:00 [place] [facility] Systolic blood 2019-06-07 154 mm[Hg] Location: TANYA; [facility] pressure 10:54:00 Position: [place] [facility] Sitting Diastolic blood 2019-06-07 74 mm[Hg] Location: [facility] 10:54:00 Position: [place] [facility] Sitting Heart Rate 2019-06-07 87 /min [facility] 10:54:00 [place] [facility] Body height 2019-06-07 67.5 [in_us] [facility] 10:54:00 [place] [facility] Weight 2019-06-07 224.5625 [lb_av] [facility] 10:54:00 [place] [facility] Body mass index 2019-06-07 34.65 kg/m2 [place] o f (BMI) [Ratio] 10:54:00 [place] [facility] Body temperature 2019-06-07 97.9 [degF] Method: [facility] 10:54:00 Temporal [place] [facility] Respiratory rate 2019-06-07 16 /min [facility] 10:54:00 [place] [facility] Procedures Procedure Date / Time Performing Clinician Source Performed [place] FLUORO NON-SPECIFIC 2020-10-19 14:06:00 Ping Wood [facility] - UP TO 1 HOUR [facility] TISSUE EXAM 2020-10-19 13:30:00 Nina [facility] CYTOLOGY 2020-10-19 12:41:00 Nina [facility] CYSTOSCOPY,URETEROSCOPY 2020-10-19 11:46:00 Nina [facility] - W/ LITHOTRIPSY AND Medical Cente r URETERAL STENT CYSTOSCOPY,TURBT 2020-10-19 11:46:00 Nina [facility] URINALYSIS W/ REFLEX 2020-10-19 08:18:00 Milton Holliday [facility] URINE CULTURE [facility] ABORH, MANUAL 2020-10-19 08:11:00 Swetha Blake [facility] POCT-GLUCOSE METER 2020-10-19 07:48:00 Nina [facility] TYPE AND SCREEN, 2020-10-19 07:40:00 Enrique Rubio [facility] ECG 12-LEAD 2020-10-16 11:18:41 Unknown, [facility] ECG 12-LEAD 2020-10-16 11:18:41 Unknown, [facility] SARS-COV2/RT-PCR ([facility] 2020-10-16 11:12:00 [facility] BASIC METABOLIC PANEL 2020-10-16 11:12:00 Hansa Gutierrez HI [facility] - (7) [facility] HEMOGLOBIN 2020-10-16 11:12:00 Hansa Gutierrez [facility] ECG 12-LEAD 2020-08-23 15:55:07 System, Provider Not [facility] th In CVRAD - Left Lower 2020-01-09 00:00:00 [facility] Venous Uni/Lmt - [id number] Physician s CVRAD - ZHEN - [id number] 2020-01-09 00:00:00 [facility] Physicians CVRAD - Bilateral 2019-07-25 00:00:00 [facility] Carotid Duplex - [id number] Physician s CVRAD - Lower Venous 2019-07-25 00:00:00 [facility] Comp - [id number] Physicians [QL] CMP W/EGFR 2019-06-07 00:00:00 [facility] Physicians [QL] CBC (INCLUDES 2019-06-07 00:00:00 [facility] DIFF/PLT) Physicians [QL] LIPID PANEL 2019-06-07 00:00:00 [facility] Physicians [QL] TSH, 3RD 2019-06-07 00:00:00 [facility] GENERATION W/REFLEX TO Physician s FT4 [QL] HEMOGLOBIN A1c 2019-06-07 00:00:00 [facility] Physicians [QL] MICROALBUMIN, 2019-06-07 00:00:00 [facility] RANDOM URINE Physicians (W/CREATININE) [QL] VITAMIN B12 2019-06-07 00:00:00 [facility] Physicians History of Leg surgery [facility] Physicians Plan of Care Planned Activity Planned Date Details Comments Source Future Scheduled 2020-10-10 INFLUENZA VACCINE [facility] - Test 00:00:00 (#1) [code = [facility] INFLUENZA VACCINE (#1)] Future Scheduled 2020-10-05 CBC W/AUTO DIFF WITH Ordered: [employer] Test 16:38:05 PLATELETS [code = 10/05/2020 of Medicin e 00755-4] Future Scheduled 2020-10-05 COMPREHENSIVE Ordered: [facility] [employer] Test 16:38:05 METABOLIC PANEL 10/05/2020 of Medicine [code = 69813-1] Future Scheduled 2020-10-05 PROTIME-INR [code = Ordered: [employer] Test 16:38:05 5902-2] 10/05/2020 of Medicine Future Scheduled 2020-10-05 APTT [code = Ordered: [facility] Test 16:38:05 14685-5] 10/05/2020 of Medicine Future Scheduled 2020-10-05 URINE CULTURE [code Ordered: [employer] Test 16:38:05 = 630-4] 10/05/2020 of Medicine Future Scheduled 2020-10-05 URINALYSIS W REFLEX Ordered: [employer] Test 16:38:05 MICRO [code = NOCPT] 10/05/2020 of Medi cine Future Scheduled 2020-10-05 XR CHEST PA AND 1 Occurrences [facility] Test 16:38:05 LATERAL [code = starting of Medicine 43389-6] 10/05/2020 until 10/05/2021 Future Scheduled 2020-10-05 US RENAL BILATERAL 1 Occurrences [employer] Test 15:59:06 [code = 62265] starting of Medicine 10/05/2020 until 10/05/2021 Future Scheduled 2020-10-05 COVID-19 Vaccine (1) [employer] Test 14:58:33 [code = COVID-19 of Medicine Vaccine (1)] Future Scheduled 2020-10-05 TETANUS SHOT (ADULT) [employer] Test 14:58:33 [code = TETANUS SHOT of Medi cine (ADULT)] Future Scheduled 2020-10-05 Hepatitis C [facility] Test 14:58:33 screening of Medicine (procedure) [code = 224958883] Future Scheduled 2020-10-05 ZOSTER VACCINE (1 of [employer] Test 14:58:33 2) [code = ZOSTER of Medicin e VACCINE (1 of 2)] Future Scheduled 2020-10-05 MEDICARE AWV [facility] Test 14:58:33 (Initial) [code = of Medicin e MEDICARE AWV (Initial)] Future Scheduled 2020-10-05 FALL SCREEN [code = [employer] Test 14:58:33 FALL SCREEN] of Medicine Future Scheduled 2020-10-05 FLU VACCINE > 6 [facility] Test 14:58:33 MONTHS [code = FLU of Medici ne VACCINE > 6 MONTHS] Future Scheduled 2020-02-[address] [facility] - Test 00:00:00 (12+) [code = Medical Center DEPRESSION SCREENING (12+)] Future Scheduled 2020-02-10 FALLS RISK SCREENING [facility] - Test 00:00:00 [code = FALLS RISK Medical C enter SCREENING] Future Scheduled 2009-05-[address] [facility] - Test 00:00:00 WELLNESS (YEAR 2 or Medical Center FIRST YEAR if no IPPE) [code = MEDICARE ANNUAL WELLNESS (YEAR 2 or FIRST YEAR if no IPPE)] Future Scheduled 1993-05-28 SHINGLES VACCINES ([address] [facility] - Test 00:00:00 of 2) [code = Medical Center SHINGLES VACCINES (1 of 2)] Future Scheduled 1962-05-28 DTAP/TDAP/TD [facility] Test 00:[facility]:00 VACCINES (1 - Tdap) Medical Center [code = DTAP/TDAP/TD VACCINES (1 - Tdap)] Future Scheduled 1961-05-[address] [facility] - Test 00:00:00 SCREENING [code = Medical nter HEPATITIS C SCREENING] Future Scheduled 1955 COVID-19 VACCINE (1) [facility] - Test 00:00:00 [code = COVID-[address] VACCINE (1)] Encounters Start End Encounter Admission Attending Care Care Encounter Source Date/Time Date/Time Type Type Clinicians Facility Department ID 2020-11-18 [facility] [id number] [facility] 10:21:32 PING 2020-11-14 Outpatient NERI [facility] [id number] MD 13:02:16 [facility] 2020-08-02 Outpatient MHSE URO [id number] MH 08:03:13 [facility] 2020-[facility]-24 Out[facility] URO [id number] MH 12:36:07 [facility] 2020-02-20 Outpatient MH[facility] URO [id number] MH 08:41:20 [facility] 2020-01-02 Outpatient [facility] URO [id number] MH 13:58:23 [facility] 2019-12-20 Inpatient MHSE MHSE [id number] MH 10:16:00 [facility] 2019-12-05 Inpatient MHSE MHSE [id number] MH 07:08:00 [facility] 2020-11-28 2020-11-28 Outpatient JONA HOLLIDAY [facility] Medicine [id number] SLE 08:59:33 19:14:00 [place] 2020-11-27 2020-11-27 Outpatient JONA WOOD [facility] Radiology [id number] SLE 00:00:00 10:32:00 PING 2020-11-21 2020-11-21 Office TRACEY He [id number] [place] 14:26:42 15:24:43 [facility] [id number] H ealth CLINIC 9.2.7.2.686 [id number] 2020-11-21 2020-11-21 Office TRACEY He [id number] 14:26:42 15:24:43 [facility] [id number] CLINIC [id number] [id number] 2020-11-21 2020-11-21 Abstract TRACEY He [id number] [place] 00:00:00 00:00:00 [facility] [id number] H ealth CLINIC 9.2.7.2.686 [id number] 1 2020-11-21 2020-11-21 Abstract TRACEY He [id number] 00:00:00 00:00:00 [facility] [id number] CLINIC [id number] [id number] 1 2020-11-16 2020-11-16 Immunizati TRACEY Johnson 1.2.840.114 1 [id number] [place] 09:12:32 09:45:07 on Covid [facility] [id number] H ealth Vaccine - CLINIC 9.2.7.2.686 Pfizer [id number] 1 2020-11-16 2020-11-16 Immunizati [place], [facility] 1.2.840.114 1 [id number] 09:12:32 09:45:07 on Jordan [facility] [id number] Vaccine - CLINIC 9.2.7.2.686 Pfizer [id number] 1 2020-10-26 2020-10-26 Outpatient [facility] [id number] [address] [place] [address] 14:55:13 15:35:15 [facility] of Medicin e 2020-10-19 2020-10-19 [id number] 07:02:00 17:32:00 Encounter [facility] 2020-10-19 2020-10-19 [facility] [id number] 10:30:00 12:55:00 [facility] 2020-10-19 2020-10-19 Anesthesia Aggie Singh [facility] [id number] [facility] 12:01:00 12:01:00 Event Mac Conway [facility] 2020-10-19 2020-10-[address] [facility] [id number] 00:00:00 00:00:00 Only Milton [facility] 2020-10-19 2020-10-19 Travel [facility] [id number] [facility] 00:[facility]00 00:00:00 [facility] 2020-10-18 2020-10-18 [facility] [id number] 12:00:00 23:59:00 Encounter [facility] 2020-10-18 2020-10-18 Outpatient [facility] [id number] [facility] 00:00:00 00:00:00 2020-10-18 2020-10-18 Travel [facility] [id number] [facility] 00:[facility]:00 00:00:00 [facility] 2020-10-16 2020-10-16 Hospital JONA Wood, [facility] [id number] 10:58:32 23:59:00 Encounter [facility] 2020-10-16 2020-10-16 Outpatient [facility] [id number] [facility] 00:00:00 23:59:00 [facility] Medicin e 2020-10-16 2020-10-16 Outpatient EL [facility] [id number] [facility] 00:00:00 00:00:00 2020-10-16 2020-10-16 Outpatient [facility] [id number] [facility] 00:00:00 00:00:00 2020-10-16 2020-10-16 Outpatient [facility] [id number] [facility] 00:00:00 00:00:00 2020-10-16 2020-10-[address] [facility] [id number] 00:00:00 00:00:00 [facility] 2020-10-05 2020-10-05 Office TRENTON Wood 1.2.840.114 [id number] [facility] 14:45:41 16:15:41 Visit [place] [facility] [id number] [facility] 0.2.7.2.686 of [id number] Medi dawit 300 e 2020-09-04 2020-09-04 Patient Debra Velasco UTP 1.2.840. 114 [id number] MD 00:00:00 00:00:00 Outreach Debra Velasco CRISJUDI [id number] 8 Health CLINIC 9.2.7.2.686 [id number] 2020-09-04 2020-09-04 Patient Rod TRACEY 1.2.840.114 [id number] 00:00:00 00:00:00 Outreach Debra JOHNSON [id number] CLINIC 9.2.7.2.686 [id number] 2020-08-31 2020-08-31 Inpatient E MHSE MED [id number] 14:28:00 09:35:00 [facility] 2020-08-24 2020-08-24 Outpatient MHSE URO [id number] MH 05:33:00 05:33:[address] [facility] 2020-08-23 2020-08-23 Outpatient MHSE URO [id number] MH 09:02:00 09:02:[address] [facility] [address] [facility] 2020-08-23 2020-08-23 EXT [facility] OP Tiff, EXT MSRDP 1.2.840.114 [id number] [place] 00:00:00 00:00:00 Vahe Lu LOCATION [id number] Health 9.2.7.2.686 [id number] 2020-08-23 2020-08-23 EXT [facility] OP [place], EXT MSRDP 1.2.840.11 [id number] MD 00:00:00 00:00:00 Warner Singh LOCATION [id number] Health 9.2.7.2.686 [id number] 2020-08-06 2020-08-06 Office TRACEY He 1.2.840.114 [id number] MD 13:25:46 14:41:29 Visit Neri [facility] [id number] H [facility] 9.2.7.2.686 [id number] 2020-07-23 2020-07-23 Outpatient MHSE URO [id number] 12:15:00 12:15:[address] [facility] [address] [facility] 2020-02-07 2020-02-07 Outpatient MHSE URO [id number] 12:13:00 12:13:00 [facility] 2020-01-09 2020-01-09 Appointmen VASCULAR, UTP Cardiothora [id number] [facility] 13:30:00 13:30:00 t; SE cic & ity of VASCULAR, Vascular [place] SE Surgery II Physi ci - [facility] ans 2020-01-03 2020-01-03 Appointmen TRACEY BELTRAN Thoracic [id number] Univers 09:45:00 09:45:00 t; REY BELTRAN, Surgery - i ty of Joaquin LE [facility] Joaquin Physici ans 2019-12-20 2019-12-20 Appointmen TRACEY BELTRAN UTP [id number] [facility] 13:30:00 13:30:00 t; REY BELTRAN ity of Joaquin LE [place] M.D. Physici ans 2019-12-01 2019-12-01 Outpatient MHSE MHSE [id number] MH 15:00:00 15:00:[address] [facility] 2019-09-20 2019-09-20 Appointmen TRACEY CAMPO [facility] [id number] Univers 09:00:00 09:00:00 t; [place] CAMPO, Advanced it y of Joaquin HO [facility] M.D. Failure - Physic i [facility] ans 2019-09-09 2019-09-09 Outpatient MHSE URO [id number] MH 07:06:00 07:06:[address] [facility] 2019-08-24 2019-08-24 Appointmen RUBY [facility] Thoracic [id number] Univers 08:00:00 08:00:00 t; REY BELTRAN, Surgery - i ty of Joaquin LE [facility].[place]athon Physici ans 2019-08-16 2019-08-16 Outpatient MHSE MHSE [id number] MH 10:24:00 10:24:[address] [facility] 2019-08-02 2019-08-02 Appointmen RUBY [facility] Thoracic [id number] Univers 08:00:00 08:00:00 t; REY BELTRAN Surgery - i ty of [place] LE [facility].Johnathon Physici ans 2019-07-25 2019-07-25 Appointmen VASCULAR, UTP UTP [id number] Univers 13:30:00 13:30:00 t; SE2 ity of VASCULAR, [facility] Physici ans 2019-07-25 2019-07-25 Appointmen VASCULAR, [facility] UTP [id number] Univers 13:30:00 13:30:00 t; SE2 ity of VASCULAR, [place] SE2 Physici ans 2019-07-25 2019-07-25 Appointmen VASCULAR, UTP UTP [id number] Univers 12:30:00 12:30:00 t; SE2 ity of VASCULAR, [place] SE2 Physici ans 2019-06-28 2019-06-28 Appointmen RUBY [facility] Thoracic [id number] Univers 10:00:00 10:00:00 t; REY BELTRAN Surgery - i ty of [place] LE [facility].Johnathon Physici ans 2019-06-07 2019-06-07 Appointmen TRACEY LADD [id number] Univers 10:30:00 10:30:00 t; NEIL LADD M.D. Practice - ity of NEIL [facility] Joaquin Physici ans Results Test Description Test Time Test Comments Results Result [facility] e Comments ANG, NEPHROSTOMY, 2020-11-28 Placement of left PERC, EXTERNAL 19:27:00 PCNU tube Need DRAIN nephroureteral tube in 2-[address] [facility] - for Exam:->Left MEDICAL CENTER[facility]: obstructed UO BANDAR POST : 1945 Sex: M FINAL REPORT History: Obstructed left ureteral orifice, unable to perform retrograde stent placement. PROCEDURE: Following informed written consent, the patient was placed in a prone position on the angiographic table and his left flank was prepped and draped in the usual sterile manner. 2% lidocaine was given locally for anesthesia. Additionally, the patient received a total of 5 mg IV Versed and 250 mcg IV fentanyl and incremental doses during the procedure for conscious sedation and pain control. Vital signs were monitored and remained stable. Conscious sedation and continuous patient monitoring were performed by the attending radiologist and a registered nurse for 45 minutes during the procedure. The patient was given 50 cc of nonionic iodinated contrast through his peripheral IV to opacify the renal collecting system. Using fluoroscopic guidance, a posterior approach and a 21-gauge Chiba needle, access was gained to the left renal pelvis. Additional contrast injection was performed to opacify the right renal calyces. Using a second Chiba needle and a posterior lateral approach, access was gained to a nondilated posterior mid pole renal calyx. An 018 wire was advanced through the needle and into the central left renal collecting system. An AccuStick sheath was placed over the wire and into the proximal left ureter. Using a 4 Dominican Berenstein catheter and 035 angled Glidewire, the left ureter and distal ureteral stricture were traversed and the catheter placed into the bladder lumen. Contrast injection was performed to confirm position. An Amplatz wire was placed through the catheter and coiled within the bladder. A 6 Dominican 25 cm vascular sheath was placed through the access site and into the left ureter. The distal ureteral stricture was dilated using a 4 mm balloon. The balloon and sheath were then removed and a 9 Dominican peel-away sheath was placed over the Amplatz wire and into the left renal collecting system. An 8 Dominican by 24 cm nephroureteral stent was then placed over the wire, through the peel-away sheath and into position with its distal tip coiled in the urinary bladder and its proximal tip coiled in the nondilated left renal pelvis. Repeat contrast injection was performed to confirm position of the stent. The stent was then secured to the skin using 2-0 silk suture and placed to external gravity bag drainage. Overall, the patient tolerated the procedure well without immediate complications and was discharged from the department in stable condition. FINDINGS: Multiple images obtained during the procedure show a nondilated left renal collecting system. There is free flow of contrast through the left ureter and into the urinary bladder though there is a moderate to high-grade focal stenosis of the left UVJ. There is also irregularity of the left UVJ suggest the possibility of a mass in this area. During balloon dilatation, a focal stenosis is noted at the left UVJ. Following placement of the nephroureteral stent, the stent is noted to lie in expected position with its distal tip coiled in the urinary bladder and its proximal coil in the left renal pelvis. IMPRESSION: 1. Successful uncomplicated placement of an 8 Dominican by 24 cm left nephroureteral stent into the patient's nondilated left renal collecting system. There is a high-grade stenosis of the distal left ureter at the level of the UVJ and irregularity in this area suggesting the mass. This stricture was dilated to 4 mm with a balloon prior to stent placement. Total fluoroscopy time: 21.6 minutes. Estimated total patient dose reported as (Ka,r): 817 mGy Signed: Hansa Villanueva Verified Date/Time: 11/28/2020 19:27:22 Reading Location: [facility] B1 P048 Angio Body Reading Room HROMBIN TIME/INR 2020-11-27 07:33:08 Test Item Value Reference Range Interpretation Comme nts PROTIME (BEAKER) (test code 12.4 seconds 11.9-14.2 = 759) INR (BEAKER) (test code = 0.94 See_Comment [ Automated message] The [employer] system which ge nerated this result transmit elizabeth reference range: <=5.90. The reference range was not u sed to interpret this result as normal/abnormal . RECOMMENDED COUMADIN/WARFARIN INR THERAPY RANGESSTANDARD DOSE: 2.0 - 3.0 Includes: PROPHYLAXIS forvenous thrombosis, systemic embolization; TREATMENT for venous thrombosis and/or pulmonary embolus.HIGH RISK: Target INR is 2.5-3.5 for patients with mechanical heart valves.CBC W/PLT COUNT & AUTO DIFFERENTIAL 2020-11-27 07:27:10 Test Item Value Reference Range Interpretation Comments WHITE BLOOD CELL COUNT (BEAKER) 11.4 K/ L 3.5-10.5 H (test code = 775) RED BLOOD CELL COUNT (BEAKER) 3.68 M/ L 4.63-6.08 L (test code = 761) HEMOGLOBIN (BEAKER) (test code = 10.1 GM/DL 13.7-17.5 L 410) HEMATOCRIT (BEAKER) (test code = 34.1 % 40.1-51.0 L 411) MEAN CORPUSCULAR VOLUME (BEAKER) 92.7 fL 79.0-92.2 H (test code = 753) MEAN CORPUSCULAR HEMOGLOBIN 27.4 pg 25.7-32.2 (BEAKER) (test code = 751) MEAN CORPUSCULAR HEMOGLOBIN CONC 29.6 GM/DL 32.3-36.5 L (BEAKER) (test code = 752) RED CELL DISTRIBUTION WIDTH 14.6 % 11.6-14.4 H (BEAKER) (test code = 412) PLATELET COUNT (BEAKER) (test 253 K/CU MM 150-450 code = 756) MEAN PLATELET VOLUME (BEAKER) 10.7 fL 9.4-12.4 (test code = 754) NUCLEATED RED BLOOD CELLS 0 /100 WBC 0-0 (BEAKER) (test code = 413) NEUTROPHILS RELATIVE PERCENT 60 % (BEAKER) (test code = 429) LYMPHOCYTES RELATIVE PERCENT 20 % (BEAKER) (test code = 430) MONOCYTES RELATIVE PERCENT 9 % (BEAKER) (test code = 431) EOSINOPHILS RELATIVE PERCENT 10 % (BEAKER) (test code = 432) BASOPHILS RELATIVE PERCENT 0 % (BEAKER) (test code = 437) NEUTROPHILS ABSOLUTE COUNT 6.90 K/ L 1.78-5.38 H (BEAKER) (test code = 670) LYMPHOCYTES ABSOLUTE COUNT 2.31 K/ L 1.32-3.57 (BEAKER) (test code = 414) MONOCYTES ABSOLUTE COUNT (BEAKER) 1.04 K/ L 0.30-0.82 H (test code = 415) EOSINOPHILS ABSOLUTE COUNT 1.09 K/ L 0.04-0.54 H (BEAKER) (test code = 416) BASOPHILS ABSOLUTE COUNT (BEAKER) 0.03 K/ L 0.01-0.08 (test code = 417) IMMATURE GRANULOCYTES-RELATIVE 1 % 0-1 PERCENT (BEAKER) (test code = 2801) Tissue [id number] 16:12:03 Test Item Value Reference Range Interpretation Comments Case Report (test code Surgical Pathology = 104) Report Case: [id number] Authorizing Provider: Ping Wood MD Collected: 10/19/2020 01:30 PM Ordering Location: [facility] Received: 10/19/2020 03:01 PM SERVICES Pathologist: Goldy Tay MD Specimens: A) - Ureter, Left, Left ureteral orifice - biopsy B) - Bladder Biopsy, Left lateral wall C) - Bladder Biopsy, Right lateral wall D) - Bladder Biopsy, Trigone E) - Bladder Biopsy, Posterior wall F) - Bladder Biopsy, Dome G) - Prostate, Prostatic urethra DIAGNOSIS (test code = p1jwvXXhTEDbo9rnPEKgqDW 3220) uZzEwMzNcZnRuYmpcdWMxIH tccnRmMVxlcGljOTYwMVxhb aNmHGMcdKWjR4PdgbmxMSet EO5iNY2zdQkwuAMwhFOtVFA bVwPmb9agp861vCUsl3lvMB ZWprwycFw1qMipA20jc2J3E kzmZ10ypBFrJTX4LPInECTx lVHvAQRiGBC6WXPjgTGcS5w gSCFjXM1lxsxjJLjqUApbGO AxyPZ4UYPhmWGgW6KaQFCsZ HanPONdgvw8UiFqZt8voUCi eTcyMFxwYXJkXHBsYWluXGZ cMpRxSA2gSUFSVKUCPUMMBB ZULCBVUkVURVJBTCBPUklGS RVKUVSUKA7VX6y9SPKkhxn2 YWIgLSAgVVJPVEhFTElBTCB IGAEPEG4ZOUZsUM6aT1tEDA dsXUCkdIJaYLCoOBQQHA6ZG lkgQkxBRERFUiwgTEVGVCBM AGKTWfPAZTgUSRkdVJEIV9Y TWTpccGFyXHRhYiAtIEJFTk jHAmXAHLzMQ2FNESJWD8ODP RYQN5QJWLZcFC5qAVVEWV2C GBPWU0SQDYBhhHCdYWLhVPL fQFSlfGClSL1dWfSLBEQWWy YwOx8RSZODM2YLLPRUBYKTH wEIGStRU27UXsCAHZPqkee8 YWIgLSBNVVNDVUxBUklTIFB NV2SNULBmCj6SJVSQKBVYNn RccGFyXHBhciBDLiBVUklOQ VJZIEJMQURERVIsIExFRlQg TEFURVJBTCBXQUxMLCBCSU9 CK6k1QBAbbur2GLEgMYEQSy UHFLNEI0rMP8tLUOXEQBtRE 9QFH7rdDCElmLRzUX6iGSZY T4FQCDZYAtTHPj1GZslDATU SRVNFTlRccGFyXHBhciBELi BVUklOQVJZIEJMQURERVIsI LUGMImEQlFsHHISG3YAKTeg oKMnJKEmThMbMTYTO3CJYRq DHBbiK9CKD9fIF06MIUvTQC IQURMfmPIfWDFwYlDjMD3CK 0NVTEFSSVMgUFJPUFJJQSBO L1KcAJMFQ7TKGFkhMSFkmZQ aRMIvJZRIDS3UMglhMyiOWS LUYrwuZQ3YCCHOJI3FRSvKN BesKKMJH1DYJIssiQZvYCAy ZqKfWZBQJ3BLAErLDFgaGZu FBHrLW6nKDCAdehc0UDGcLA JPNLCMBKdWVmaOZTEUS7MHJ YHtZo1KNIJYJUVJWiWltSKz XHBhciBGLiBVUklOQVJZIEJ MQURERVIsIERPTUUsIEJJT1 ZEVKxpdSUlPYAdyXPpXG2rZ UlMRCBDSFJPTklDIElORkxB PC7YAMoRIlBJVEEFIFNPUBS QCGFFNWROP1LNDNqZCWzjR2 zKFoeKX1qfYPTsyAJdSJ3iN jYINTLDUoQtPj4LBLPGN9OQ XKEUTNLXOyVTGMkAL21HZpM DZYQanpy6ANGzRCMCARAZPS yNXpxEYNRPR5VZTGCjJWFYX 0VOVFxwYXJccGFyIEcuICBQ Dy9AZWIOWXTkMGJMOKwONJv gVFJBTlNVUkVUSFJBTCBSRV GOV4TOA27lK6IeWIcSJOJQX 1NUQVRJQyBVUkVUSFJBOlxw LKNpIHg0YIRrBHQBRS2TR40 mKSWFZ6EBSShXIRQGV3JHPK SKTOIMSGSEBZJDK8GRQKOSI 6PGMMCQMFYXJQYAAP6PKGHm cGFyICAgICAgXHRhYiAtIE5 GA9GSRHBMEIVFGhPQCUHZNE OECOEaF4DtCWQKOUzDPF0WB SvhJJP0f4dmqZBgWNIvrWWi ODAwMFxhbnNpXGRlZmxhbmc dRESqPDQ9evVvICPiVVklJP XqPEytWr0opRVcyTegIrRqM IKhf8ypxwQOxzwheFl5v4xk YKLnPxE3mUYvGPxhO3wiyjZ xsLVoZMOtLMt7jQ43PIBmrU 8nqGDdTFebkfWgGiA6NNmdN ITxTyB4YBXflDYvIVJyD9ra ZWQwXGdyZWVuMFxibHVlMCA 6mLlqd3K8kLSvhMTxuNygDy NcQdEkXaXTb8RbAEz5eMowU 5WnGXOsMqQ9fYKgPOTgIIgo AASoGGCggzA5pU40XQarxaK 1uUVcz4Rfp83ol204kE2xdC ZzZAS9OHSuDAIcxJTiCGJfI ON1HGGooBWzG7drFXPfXW6f ocklRFunGLrcYEJnrBH0YNZ tjIFfK6WjAYQqGNqwTQMqkm o7AyExBk2iaVNygRnwPNhpl 1zgt0ylvQShKjz2ZRXrFmEe ZbwoNRice6Fja5fxMAItfl7 fZXX4tDVioLckm7V9dZFtUI KybJNuPWKsGQ3pyWPaAEIpg S4geiwuFMWpCuQggmggKLMz zDsqlcVcTe0yqFxsSJO2TSa fC1cuyY5xLoN3CUnoA8kyaB 2nNVg5FZbcLRTbmZQ3saJ6R NGohHQeD0AdmN7nAIGcNZ5m vem2u8pxIIK5ZTpeJLMnNvZ 3ihV4ZASuvFZmQOOrjDtpZU txn167XYY4HaVhGTNit0MfP 8UeiIizG51opZasK24uZEWo xVcotO5urRfmeG9vMqOfNvL rDZyziNgsXN8gJHFiG1yupC OmHVZvBTJjI0eeUcMuhA6dm EtrWMmhgzCdVAKdPca8HVPk nPKdPBMfGvd1IDIeKAXoA06 pmwhbUHD3sT6gt5tsc9CqED ciLTR7IUNyb85cUEwhuoL1X AtwCv5iYMCyYwg8RwkgVVM1 fQ== CPT Code(s) (test code z4irlRHvHYBhgPF2VqFeKSY = 3357) jj8wgk7TxhRHmtALlBObvyZ AdnyXcne49cGB5oG96VT2zB DFrUzX2VUVjedI2Nvh8OCOm HWGamZQwJ520d5boz0yzsjA uxXR3uXbkFFQzrgkeZdG5ZW wuZZFicyixCIt6SVcpIGAfs FT8CCWzlWJaL6AiWKEpSK7i cwy1EBH7ZUyvYALvDcC7IQN lxZWyJTZafUlkEUngk521YS I9OgUxPCIdmaShkJwczE7zH oAfWCG4DZYnOJZCOUvvkHVn fQ== SPECIMEN SOURCE (test r1epfDZpSOYnnGL0KnStHTM code = 3377) dv5qsu4YhsXUhbRFmXVhzaT NvvxYane41wDH2uN59VF9iI QZfXtA9AGUgdjJ2Bzt9EHDs CGKimRLdD580w3rua5snosG soQL7dWvpTBCiOSFgTFtrIN OoReExIF9bNIUnjQA8fuI5H XJhbCBvcmlmaWNlOyBCLiBM OXR8GRxfqGQrDQkjo4EhdPc tHn3tXjpezFSbaEK9RZHyhN frPN2jLIYrF52uECdjRJ4mR E3nuWHczE4rYXktgDx0CNZl PNDvdMR2CDayWGYnt4H0UPY jNdO8xjE3oPZpZSHzfg6= MICROSCOPIC a2ceuDPzBXFudEG3MkZrUEI DESCRIPTION (test code ix5dnv4VrlKMaaISoQFbehW = 3371) UsvdJxgm58dAE4qF95YY8oX FOoOvQ0AQBkcpL6Yfg9DWXg YXBjcPOzK141s9vuf5qgruV bmNB9tAckGLPeezuoLnK2TU txRHKmjrgrFIh1MGqfBAZwj LU0TPFhaLIqF7TuEOWhQU3x bjr4EGX9QYtcSEOkEeI4CZP dyMNtYUJqaMjzOIwrl665NJ B4CcTdMLWeloNdrKbskV5pV qGfUVVODNZty8XnVCFkBHZv cn0= Gross assessment was [facility] performed at ([facility], code = 2777) Department of Pathology, [address] [place] [id number], Technical component [facility] was performed at ([facility], code = 2778) Department of Pathology, [address] [place] [id number], Professional component [facility] was performed at ([facility], code = 2779) Department of Pathology, [address] [place] [id number], GROSS DESCRIPTION m8ahyPQrDLSivNNzCbXnBBY (test code = 3366) rHTFlh4ggXOZelPBlKiBkRj NcZnRuYmpcdWMxXGRlZmYwe 7vjg655jCTcy5wsXBFYkbvt uJs3i8ucVJOzPpN8tSUoSEp hS0phjqUioMWvLFWxOXa5oO 11VKOwkF8hmMTyAHmsauOiI nW8OSuyKKQjJcS5PKEljMBy WXOmM9bpMNJwIJquAHTbQNf wxHExWQC4hYtob8N5dJLbeL OeuZxrOgWlIgDpEBAEa3AbN Rt2cKqdV5JkATAcDkW5yZQl SQXeNUvpYVVzRXAfmsV2oM1 7QThaqoU9jXQwc7Cuz53dt9 52qZ5yaNScSHN2WBPqKAGlx RCjKPFxKXC2EIKfqTJsW9p5 BlRsfTPkW8S9TvYzoKEpR7P 3NnWxwWRfD7R8RmSnhSXaIT CldPZqKt9kxRZdzRNana1fy d47YFD8z1KxfIdbQEQ2CZF7 KpAbZo7suABrNMVqKZJusUE rKBNxBT5ekEHpSGEnzM0nqo xjXHBnYnJkcmhlYWRccGdic lZlPn1yeLkkKGP4APrsD1qb uG0yYzH2JDsfD7rjzC5cRJa 2GLhbwRZ8TQYlfA4nSQ6wxc gzx9jxEyMgCX3vtrmlw5obA hKpRZ8tekh5k6teXvFzLE2e eihcg2qoVoGoECirTMZekzs pXQJyv2AspnyuVEFiw1IwH8 BniPqrD73fcSmvE76nNAGun ZcdiZ7rrCvokO6gBxHeBvLy NFxwYXJkXHBsYWluXGYxXGZ zMjBcbGFuZzEwMzNcaGljaF gwPMvfRbGcKPPwLPqzH0igI jFcZnMyMCBBLiBSZWNlaXZl EAJjriGbi4YwTMrvtrGoCSH ftINkATO9naZ4XNPkIBotWr BlVXbtIBHrTO25UQvrYV55X QefZM7oFSRoQZRscm9rsH7e HOLab1G1LOude9EtnDv3bAI gXAYwsTmiNSv1DOgmRPSdp2 NldHRlIEExLiBccGFyXHBhc tGDQtSpYdYlMVx4YBIquQ5p Ee5btKFruG4ehPXfYOefVDV iYmxhZGRlciwgbGVmdCBsYX RlcmFsIHdhbGwiIGlzIGEgM Q0bGVjrFJ5pQRsgCL7qDAPw BBDiYXJiYX9mZAPjwp4grT7 rMNOfw3E6ATseq8FngYg6vY NxYPZwkBliWFj5RPhhJJYei 3NldHRlIEIxIGFmdGVyIGZp qGCoKLZny50uNGzfOSWihPD hJNGeNPGqU1GlcwTuRIlgRI Ebun4ovJwhDFeqXfPvAPBtY zOlKLPaKERdDCGfF5e9PEmn mMIxRIoga1BlyCDapRDsGCS wLjMgeCAwLjMgeCAwLjMgY2 8owIyvG2Trl5VtpCJlUGUxg jtjgBdmz3KlVLOdsKIbvQU1 NCUrHC39zIEerDmpxU8vZ6E th0A7wTTgKoQiETEddDPqWV BhciBELiBSZWNlaXZlZCBpb wLac6KnSPbqqaGpGTIexIVi VFNpkYZuMFBfNNPqk0YhuPv gmLLbE18oCFWcfJSwQHKiMg KzmTZuBnJrrIQeOnZeE92zn IcfX3Ybf0QfpPZzNBPfzjhk sZjhg5RbTGKvcQNqvRW9KGJ oLU99oXPrjBipzR2iA4Obe0 Y7jQHeLGUaSHosICXgrCKaK GCbXAJuZ0XrshExYFsyVIOw hq1oqKfeYPzoBsOdKKSkCoC cNJEzIZCnHiwyaLH7NGLim5 P4NQIem3Uic0TuxALpqWMiU SAwLjIgeCAwLjIgeCAwLjIg I46akVdaB4Opw4HioTBiHDY syjfeiVngy7KcOZTcnGGxzZ L5PVJlVM48rGBdhVdswO1bV 9Wip2V2oYFcPAJeLRIplYJv XHBhciBGLiBSZWNlaXZlZCB hceXqc3PvOCtgwzTcNEEawY QfBRTfsQHcLSXcWPGra4Bhv N0eTIHmmTDuVDxmFUViIF19 EIfyEQ66MOgpSN3hSFLfOSQ uMUYfTX3lICMfon5evM1bVK Nrq6P5PQzzq7CumIt7kOCsA UBugBrvJTp1EZmhZAYvz0Lm dHRlIEYyLiBccGFyXHBhciB HLiBSZWNlaXZlZCBpbiBmb3 JtYWxpbiBsYWJlbGVkICJwc w2jgDA1sUEwbWTxgDsiZQAf aXMgYSAzLjUgeCAyIHggMC4 1NAMrZDLzR7PzY1Q0YBEyLh L2YX6ocRwvuiBzpVQoVKK2Q FNff3W9XLSiuhWwhBNipINv KFT5Xd4jsNGvVHHxjpFzwhM kmNHyywWtAZZmMRV7EVHLRA UvTdIgngXjeZm8iqZ7hI0rU gLmPFoKR8VnYGKkax5= [facility] [id number] 16:12:03Surgical Pathology Report Case: [id number] Authorizing Provider: Ping Wood MD Collected: 10/19/2020 01:30 PM Ordering Location: [facility] Received: 10/19/2020 03:01 PM SERVICES Pathologist: Goldy Tay MD Specimens: A) -Ureter, Left, Left ureteral orifice - biopsy B) - Bladder Biopsy, Left lateral wall C) - Bladder Biopsy, Right lateral wall D) - Bladder Biopsy, Trigone E) - Bladder Biopsy, Posterior wall F) - Bladder Biopsy, Dome G) - Prostate, Prostatic urethra A. URETER, LEFT, URETERAL ORIFICE, BIOPSY: - UROTHELIAL CARCINOMA IN SITUB. URINARY BLADDER, LEFT LATERAL WALL, BIOPSY: - BENIGN ADIPOSE TISSUE NODULE IN LAMINA PROPRIA - NEGATIVE FOR DYSPLASIA OR MALIGNANCY - MUSCULARIS PROPRIA NOTPRESENTC. URINARY BLADDER, LEFT LATERAL WALL, BIOPSY: - NO PATHOLOGIC DIAGNOSIS - MUSCULARIS PROPRIAPRESENTD. URINARY BLADDER, TRIGONE, BIOPSY: - UROTHELIAL CARCINOMA IN SITU - MUSCULARIS PROPRIA NOT PRESENTE. URINARY BLADDER, POSTERIOR WALL, BIOPSY: - UROTHELIAL DYSPLASIA - MUSCULARIS PROPRIA NOT PRESENTF. URINARY BLADDER, DOME, BIOPSY: - MILD CHRONIC INFLAMMATION WITH REACTIVE UROTHELIAL CHANGES - NEGATIVE FOR DYSPLASIA OR MALIGNANCY - MUSCULARIS PROPRIA PRESENTG. PROSTATIC URETHRA, TRANSURETHRAL RESECTION OF THE PROSTATIC URETHRA: - BENIGN PROSTATIC TISSUE WITH PREVIOUS BIOPSY SITE CHANGES - NEGATIVE FOR DYSPLASIA OR MALIGNANCY Signing Pathologist Direct Phone Line: [phone] ctronically signed by Goldy Tay MD on 10/22/2020 at 4:12 PMPreliminary result electronically signed by Goldy Tay MD on 10/22/2020 at 11:12 [id number] X 7A. Left ureteral orifice; B. Left lateral wall; C. Right lateral; D. Trigone; E. Posterior wall; F. Dome; G. Prostatic ureth raPerformed.[facility], Department of [facility]ology, [address] [place] [address], [facility], [facility], [address] [place] [address], [facility], Department of Pathology, [address] [place] [address], a. Received in formalin labeled "ureter, left"is a 0.5 x 0.4 x 0.2 cm rutherford-pink tissue, submitted entirely in cassette A1. B. Received in formalinlabeled "bladder, left lateral wall" is a 0.3 x 0.2 x 0.1 cm piece of rutherford-pink tissue, submitted entirely in cassette B1 after filtration. C. Received in formalin labeled "bladder, right lateral wall" is a 0.3 x 0.3 x 0.3 cm piece of rutherford-pink tissue, submitted entirely in cassette C1. D. Received in formalin labeled "bladder biopsy, trigone" is a 0.3 x 0.3 x 0.3 cm piece of rutherford-pink tissue, submitted entirely in cassette D1. E. Received in formalin labeled "bladder biopsy, posterior wall" is a 0.2 x 0.2 x 0.2 cm piece of rutherford-pink tissue, submitted entirely in cassette E1. F. Received in formalin labeled "bladder biopsy., dome" is a 0.5 x 0.4 x 0.3 cm piece of rutherford-pink tissue, submitted entirely in cassette F2. G. Received in formalin labeled "prostatic urethra" is a 3.5 x 2 x 0.5 cm aggregate of rutherford- pink rubbery tissue fragments, submitted entirely in cassette G1 after filtration. YY/[id number] 15:37:00 Test Item Value Reference Range Interpretation Comments Case Report (test code Medical Cytology Report = 104) Case: [id number] Authorizing Provider: Ping Wood MD Collected: 10/19/2020 12:41 PM Ordering Location: [facility] Received: 10/19/2020 02:09 PM SERVICES Pathologist: Stalin Trejo MD Specimen: Ureter, Right DIAGNOSIS (test code = [id number] 3220) uZzEwMzNcZnRuYmpcdWMxIH tccnRmMVxlcGljOTIwMlxhb sEsGKBvrQNiO2CvdzacAVht MO9ySO4xzGhjsJBmkHVvPIR wCoPpg9qpu516hMDje7qnPF WRcdstnLo1cVrkD43lo8F8V wljC59zjOQiGRworJVxyahq czIwIFVSRVRFUiwgUklHSFQ bB2OQXRsFJnSvA8hSV6INTS 5TKTpcbGluZSAgICAtIEhJR 9euV5GVZKUvBNMAHIhQVCnA ZKOYEW3KXZSOAEHrxHLorYz qjmOvTWicg1NrONwsJBDaTP 1zfFesYSHnFZ3jXLYfL3iea F8acqp7UxAqSJWgNiS6PMYy thJ4Stf7NIUiIBhom1xmn0O xOVKgYHh6yAdfMxWwEFHzz6 lzcyBcZmNoYXJzZXQwIEFya ARyU646k7smi5zzzmCkaXM6 ENYwUHH2CSgeraNfeeA5ALx psFEeZrO1GVouhcIlHDgcjw KeitPfEnk8AUAaR473XHK7j Hont3jkUFW1JFLmVXQwGlUc Pa4xyHPjD575RPFjKAXBOVD kfOk0MPWowoSrkuLvaKCXp1 83V355q9dzWCVorpWupRpBi fkeb8yxI688NTPlyRTczpWo JiRzRDJqtWFepVS3NNDmOW0 faabgFUxmNXtnCBCzquC4OK JiiUQnA4EgPFVgCP8apkluY IX6URsxCIJjGGJ5XfPeXVEl f5Dydjm3TvLsgf3ttj93FHJ 0e9GzjFutQCQ8LBD0RoNaXo 6iiDWgWBHuQA0jMaYvuLWiC WPfvi34zVecXDjhUEJ8HPRr uoFrx1Taj5wgOcPhvuKgK4v sD4ChZPYlAHEiBIZxStRxmv Qpp2Yft1DcxBNykEp1w4qpE OCoAIEegUuoc0zxYVH0JQCx mSGeE6olxL2tYJOkBM1bghw bp2ifFPhgHApyHNMpzUX5tc C3LOVbmRIvO3GunR1lTQBhY EsoNCImtix2JvZjEk1zpECu eTcyMFxzYmtwYWdlXHBnbmN vbnRccGduZGVjXHBsYWluXH BsYWluXGYwXGZzMjRccWxcb GFuZzEwMzNcaGljaFxmMVxk ShNsPZVzQAcbJ3ntWhSpXkP sGrm1JVVxqRYeFLXaLja7QG TucAOlGSTGkXmntG1iASRrj EjypT9rdCS7AHVqgeHiuXQZ yF9kEQFKxA9yVoO0PpOxPkG 5UMp5BiQRQNStpv25 COMMENT (test code = b0xerSLtSQRonUK1TrAbYFO 3356) jy3kfr5LkqYNuhCQsRZqfgR MgvhHbjo57tNY7tS15QV2mX HHoQzY6OOCflzM8Wxr6QTWt GHNkdJBqC684g9pye6hkdjO tmJL8jWhfIXKpQUAnGTutKC ZzMjAgUGxlYXNlIHNlZSBzd XKcwQSipXOrQWBzd9pjY6mm M2WhBHUJPmObUNPkQHOviXW yfQ== CPT Code(s) (test code l9cytVFvTHTfeUO3ViKhDKS = 3357) be8lld3IuePOgvTZwBXpmjB MucvMjqz19pYS2fS26TW0hI WEbAtZ1BGCndmO9Sty7JREi ZNLdxPWwQ144i1fuq6qceuL pmXD5vNsdDYAaDZXbIScwDC ZzMjAgODgxMDhccGFyfQ== CLINICAL DATA (test r8inpQIgDASesZV7MeUfQZN code = 3355) tm4rai9JkzGSlpFZtSReobE GdjiObdz45oIE9mN06BL7zY WFcWwO0STXnukS8Ihi0GGJu KVCrtJQvK326p5avj1lmfyA plKV4kNhqBIQfBCHuHTfbTH SuRvQqP1OmvAWiYMChz2MmG 7xtzI2aP06wyZtxeQtdmG9i eSBvZiBibGFkZGVyIGNhbmN xavNllq9hLQPJLkK5spOkiP 7zpcEgYghzKOQ2 SPECIMEN SOURCE (test e0etjBMaJDOftBS7TsJbCOY code = 3377) sp2zkk6UxuLEaxJUzQCpqeE UvglCqfv38fGO7sB72ST3qQ ZXxOiK2GXNwomE7Qbb8YMHc ALYzpQPqP481w0xxb9rgyrN xfXN1oOzrOCRuDVObUDuaJO ZzMjAgVVJFVEVSLCBSSUdIV WHBIRLVJR7GUCVwox9= GROSS DESCRIPTION o3wrjJPuGDBjxTM9BiDhHCW (test code = 3366) zf0zyw6KseOGwmNMkYChgnM UihwRtxf69eGE8cO16SI6qY NKeNuH3DMJbzdC0Mxt3TQJi ZPWqxIQjK795f9wap5dbyuS duPJ9fPhuLTAaVTOgZWdoQD IkPcNgLjPmOSj8BEMlJDDsc MpyEFCqgvseUak6wKG2EXHa YGDtmuPmFWEkY4r1c1RspA3 zLiBccGFyfQ== MICROSCOPIC z5jkbJUcCWJipPN2PwTsTEG DESCRIPTION (test code mj4zov8AlfYQkpYWcTJrpsJ = 3371) OhsuSfxt49aHN2jK26NV2eN ANfNuI7YKTuxbQ4Hhr8WQTl WHBgdOWxS911c3hqv7octrS msIL6zCjkBXQsQVHxFJwfDC UlYfZlZAPcLi9bbXJlQgTsh GFyfQ== STATEMENT OF ADEQUACY Satisfactory (test code = 2757) Gross assessment was [facility] performed at ([facility], code = 2777) Department of Pathology, [address] [place] [address], Technical component [facility] was performed at ([facility], code = 2778) Department of Pathology, [address] [place], [place] [id number], Professional component [facility] was performed at ([facility], code = 2779) Department of Pathology, [address] [place] [address], [facility] 15:37:00Medical Cytology Report Case: [id number] Aut horizing Provider: Ping Wood MD Collected: 10/19/2020 12:41 PM Ordering Location: [facility] PERIOPERATIVE Received: 10/19/2020 02:09 PM SERVICES Pathologist: Stalin Trejo MD Specimen: Ureter, Right URETER, RIGHT WASHING (CYTOSPINS): - HIGH GRADE UROTHELIAL NEOPLASIA Signing Pathologist Direct Phone Line: [phone] signed by Stalin Trejo MD on 10/19/2020 at 3:37 PMPlease see surgical pathology case [id number] post cystoscopy, history of bladder cancer (s/p BCG treatment).URETER, RIGHT WASHINGReceived 10 mls pink fluid; prepared [address]. [address] [facility], Department of Pathology, [address] [place] [address], [facility], [facility] of [facility]ology, [address] [place] [address], [facility]jsonShasta [facility], Department of Pathology, [address] [place] [address], LM, FLUORO, NON-SPECIFIC, UP TO 1 [id number] 14:06:00Reason for exam:->Retrograde cystoscopyCH[facility]DR[facility]IEGOName: BANDAR POST : 1945 Sex: M Fluoroscopic unit utilized for a procedure performed in the OR. No interpretation was requested. Refer to the operative report for findings. Refer to PACS for patient radiation dose information.Urinalysis w/Microscopic + Reflex to [id number] 10:08:00 Test Item Value Reference Range Interpretation Comments Color, UA (test code Light Yellow = 5778-6) Clarity, UA (test Clear code = 5767-9) Specific Keyes, UA 1.016 1.001-1.035 (test code = 5811-5) pH, UA (test code = 7.0 5.0-8.0 5803-2) Protein, UA (test 30 mg/dL Negative A code = 79557-3) Glucose, UA (test Negative Negative code = 365) Ketones, UA (test Negative Negative code = 2514-8) Bilirubin, UA (test Negative Negative code = 61516-7) Blood, UA (test code Large Negative A = 31755-0) Nitrite, UA (test Negative Negative code = 5802-4) Leukocytes, UA (test Small Negative A code = 5799-2) Urobilinogen, UA 0.2 mg/dL 0.2-1.0 (test code = 20783-1) RBC, UA (test code = 91 See_Comment [Autom ated 56639-2) message] The system which generated this result transmit elizabeth reference range : /HPF. The reference range was not used to interpret this result as normal/abnormal . WBC, UA (test code = 7 See_Comment [Autom ated 5821-4) message] The system which generated this result transmit elizabeth reference range : /HPF. The reference range was not used to interpret this result as normal/abnormal . Bacteria, UA (test None Seen code = 76184-3) Mucus (test code = Rare 8247-9) Squam Epithel, UA 6 See_Comment [Automate d (test code = 55820-3) messag e] The system which generated this result transmit elizabeth reference range : /HPF. The reference range was not used to interpret this result as normal/abnormal . Crystals, Urine (test None Seen code = 45913-4) Specimen Source (test code = 2795) FOSTER (test code = FOSTER) Soft Boarder ID - [auto]Soft Boarder ID - tech Lab Interpretation Abnormal (test code = 87799-0) [facility]/ REFLEX URINE [id number] 10:08:00 Test Item Value Reference Range Interpretation Comments COLOR (BEAKER) (test code = 470) Light Yellow CLARITY (BEAKER) (test code = Clear 469) SPECIFIC GRAVITY UA (BEAKER) 1.016 1.001-1.035 (test code = 468) PH UA (BEAKER) (test code = 467) 7.0 5.0-8.0 PROTEIN UA (BEAKER) (test code = 30 mg/dL Negative A 464) GLUCOSE UA (BEAKER) (test code = Negative Negative 365) KETONES UA (BEAKER) (test code = Negative Negative 371) BILIRUBIN UA (BEAKER) (test code Negative Negative = 462) BLOOD UA (BEAKER) (test code = Large Negative A 461) NITRITE UA (BEAKER) (test code = Negative Negative 465) LEUKOCYTE ESTERASE UA (BEAKER) Small Negative A (test code = 466) UROBILINOGEN UA (BEAKER) (test 0.2 mg/dL 0.2-1.0 code = 463) RBC UA (BEAKER) (test code = 91 /HPF 519) WBC UA (BEAKER) (test code = 7 /HPF 520) BACTERIA (BEAKER) (test code = None Seen 517) MUCUS (BEAKER) (test code = Rare 1574) SQUAMOUS EPITHELIAL (BEAKER) 6 /HPF (test code = 516) CRYSTALS, URINE (BEAKER) (test None Seen code = 1521) SOURCE(BEAKER) (test code = 2795) Soft Boarder ID - [auto]Soft Boarder ID - techABORH, [id number] 08:42:00 Test Item Value Reference Range Interpretation Comments ABO Grouping (test code = 2588) O Rh Factor (test code = 2589) NEG [facility] CenterType and screen, [id number] 08:25:00 Test Item Value Reference Range Interpretation Comments ABO/RH AUTOMATED (BEAKER) (test O NEGATIVE code = 2260) Ab Scrn (test code = 890-4) NEGATIVE [facility] CenterPO-Glucose [id number] 08:00:00 Test Item Value Reference Range Interpretation Comments POC-Glucose Meter (test 86 mg/dL 70-110 : TE STED AT [facility] code = 1538) [address] [facility] [place], [address]: Soft Boarder/Techni flakita ID = [id number] for Marion Mcbride ssy Lab Interpretation (test Normal code = 23684-7) [facility] CenterPOCT-GLUCOSE [id number] 08:00:00 Test Item Value Reference Range Interpretation Comments POC-GLUCOSE METER 86 mg/dL 70-110 : TESTED Juanito Cagle [facility] [address] (ARIANA) (test code = [place], 1538) [address]: Soft Boarder/Techni flakita ID = [id number] for Edwina Kelley SARS-CoV2/RT-PCR (Asymptomatic ONLY)2020-10-16 16:57:00 Test Item Value Reference Range Interpretation Comments SARS-COV2/RT-PCR Negative Not Detected, (test code = Negative, See 76182-0) external report for linked test SARS-COV-2 [facility] (test code = 06242-5) FOSTER (test code = Negative result for this FOSTER) test determines that SARS-CoV-2 RNA was not present in the specimen above the Limit of Detection (LOD). However, Negative results do not preclude SARS-CoV-2 infection and should not be used as the sole basis for treatment or patient management decisions. Negative results must be combined with clinical observations, patient history, and epidemiological information. A false negative result may occur if a specimen is improperly collected, transported or handled. A false negative result should be considered if patient's recent exposures or clinical presentation indicate that COVID-19 (SARS-CoV-2) is likely and diagnostic tests for other causes of illness are negative. Re-testing should be considered in cases of suspected false negatives. The limit of detection for this assay is 800 copies/mL. This SARS CoV-2 test is a real-time RT-PCR test intended for the qualitative detection of nucleic acid from SARS-CoV-2 in a nasopharyngeal swab specimen collected from individuals suspected of COVID-19 by their healthcare provider. This test has not been Food and Drug Administration (FDA) cleared or approved. This is a modified version of an approved Emergency Use Authorization (EUA) and is in the process of review by the FDA. Once authorized by the FDA, the issued EUA will be effective until the declaration that circumstances exist justifying the authorization of the emergency use of in vitro diagnostic tests for detection and/or diagnosis of COVID-19 is terminated under Section 564(b)(2) of the Act or the EUA is revoked under Section 564(g) of the Act. Fact Sheet for Healthcare Providers:https://www.Nemedia idel.[employer]/sites/default/f kevin/product/documents/F act_Sheet_HC_Providers_L qje_QIIN-RpG-0.pdf Fact Sheet for Healthcare Patients:https://www.[employer]/sites/default/fi les/product/documents/Fa ct_Sheet_Patients_Lyra_S ARS-CoV-2.pdf Performing Laboratory:[facility] [place] [address] [facility]2020-10-16 16:57:00 Test Item Value Reference Range Interpretation Comments SARS-COV2/RT-PCR (test Negative Not Detected, Negative, code = 3208652) See external report for linked test SARS-COV-[address] [facility] (test code = 2214530) Negative result for this test determines that SARS-CoV-2 RNA was not present in the specimen above the Limit of Detection (LOD). However, Negative results do not preclude SARS-CoV-2 infection and should not be used as the sole basis for treatment or patient management decisions. Negative results mustbe combined with clinical observations, patient history, and epidemiological information. A false negative result may occur if a specimen is improperly collected, transported or handled. A false negative result should be considered if patient's recent exposures or clinical presentation indicate that COVID-19 (SARS-CoV-2) is likely and diagnostic tests for other causes of illness are negative. Re-testing should be considered in cases of suspected false negatives.The limit of detection for this assay is 800 copies/mL.This SARS CoV-2 test is a real-time RT-PCR test intended for the qualitative detection of nucleic acid from SARS-CoV-2 in a nasopharyngeal swab specimen collected from individuals suspected of COVID-19 by their healthcare provider.This test has not been Food and Drug Administration (FDA) cleared or approved. This is a modified version of an approved Emergency Use Authorization (EUA) and is in the process of review by the FDA. Once authorized by the FDA, the issued EUA will be effective until the declaration that circumstances exist justifying the authorization of the emergency use of in vitro diagnostic tests for detection and/or diagnosis of COVID-19 is terminated under Section 564(b)(2) of the Act or the EUA is revoked under Section 564(g) of the Act.Fact Sheet for Healthcare Providers:https://www.[employer]/sites/default/files/product/documents/Fact_Shee d_XI_Cikltlrke_Xrca_CTQR-XnP-6.pdfFact Sheet for Healthcare Patients:https://www.[employer]/sites/default/files/product/ documents/Eaiv_Gzxwq_Tulizkva_Ixfv_KVAD-FbP-1.pdfPerforming Laboratory:[facility] [facility], [place] [id number] 14:35:00 Test Item Value Reference Range Interpretation Comments Hemoglobin (test code 11.1 See_Comment L [Auto mated = 786-4) message] The system which generated this result transmit elizabeth reference range : 13.7 - 17.5 GM/ DL. The reference range was not u sed to interpret th is result as normal/abnormal . FOSTER (test code = FOSTER) Soft Boarder ID - [id number] Lab Interpretation Abnormal (test code = 77662-2) [facility]00 Test Item Value Reference Range Interpretation Comments HEMOGLOBIN (BEAKER) (test code = 11.1 GM/DL 13.7-17.5 L 410) Soft Boarder ID - [id number] Metabolic [id number] 14:14:00 Test Item Value Reference Range Interpretation Comments Sodium (test code = 140 meq/L 175-053 1016-2) Potassium (test code = 5.1 meq/L 3.5-5.1 2823-3) Chloride (test code = 100 meq/L 98-107 2075-0) CO2 (test code = 31 meq/L 22-29 H 2028-9) BUN (test code = 30 mg/dL 7-21 H 3094-0) Creatinine (test code 1.52 mg/dL 0.57-1.25 H = 2160-0) Glucose (test code = 84 mg/dL 70-105 2345-7) Calcium (test code = 9.7 mg/dL 8.4-10.2 54119-8) EGFR (test code = 45 mL/min/1.73 [place] [address]-3) NOT ACCURATE CREATININE CLEARANCE IN PREDICTING GLOMERULAR FILTRATION RATE . ESTIMATED GFR I S NOT APPLICABLE FOR DIALYSIS PATIENTS. FOSTER (test code = FOSTER) Soft Boarder ID - COLLETTE C Lab Interpretation Abnormal (test code = 28973-8) [facility] METABOLIC [id number] 14:14:00 Test Item Value Reference Range Interpretation Comments SODIUM (BEAKER) 140 meq/L 136-145 (test code = 381) POTASSIUM (BEAKER) 5.1 meq/L 3.5-5.1 (test code = 379) CHLORIDE (BEAKER) 100 meq/L 98-107 (test code = 382) CO2 (BEAKER) (test 31 meq/L 22-29 H code = 355) BLOOD UREA NITROGEN 30 mg/dL 7-21 H (BEAKER) (test code = 354) CREATININE (BEAKER) 1.52 mg/dL 0.57-1.25 H (test code = 358) GLUCOSE RANDOM 84 mg/dL 70-105 (BEAKER) (test code = 652) CALCIUM (BEAKER) 9.7 mg/dL 8.4-10.2 (test code = 697) EGFR (BEAKER) (test 45 mL/min/1.73 ESTIMA ELIZABETH GFR IS code = 1092) sq m NOT ACCURATE CREATININE CLEARANCE IN PREDICTING GLOMERULAR FILTRATION RATE . ESTIMATED GFR I S NOT APPLICABLE FOR DIALYSIS PATIEN TS. Soft Boarder ID - COLLETTE CCTA Neck [id number] 11:06:00 Test Item Value Reference Range Interpretation Comments Neck CTA SEE NOTESSEE Radiation Dose CTDIVOL = 0 (test code NOTES (mGy): DLP = 67 8.2 = Neck CTA) (mGy-cm)Report will be faxed to the physicia n's office followed by emma ne call.Kalina tian MD On 08/16/2019 12: 23:34; [id number] -Read by: Swathi Najera Date/time: 08/16/19 12:23 Electronically Signed by: Kalina Acosta 08/16/2011:23FI NAL REPORTRadiation Dose CTDIVOL = 0 (mGy): DLP = 678.2 (mGy-cm)PROCEDU RE INFORMATION:Exa m: CT Angiography Nec k With ContrastExam da te and time: 08/16/2019 11:20 AMAge: 74 years oldClinical ind ication: 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 Contrast material: OMNI 350ML; Contrast volume: 80 ml; Contrast route:INTRAVENO US (IV); COMPARISON:No r elevant prior studies availab le.RADIATION DOSE METRICS:To aster DLP (mGy-cm): 678.2 FINDINGS:Right common carotid artery: No stenosis. No di ssection or occlusion.Right internal carotid artery: Moderate atheromatous ca lcifications in theright caroti d bulb, no stenosis.Right external carotid artery: No occlusion or stenosis of the origin. Right vertebral artery: No stenosis. No di ssection or occlusion.Left common carotid artery: No sten osis. No dissection or o cclusion.Left internal caroti d artery: A focal critical, greater than 85%, stenosis o fthe proximal left ICA 5 mm f rom the origin. This is due to noncalcifiedath eromatous plaques. The re st of the left cervical ICA is small in caliber.Left ex ternal carotid artery: No occl usion or stenosis of the origin. Left vertebral arter y: No stenosis. No dissection o r occlusion.Thyro id: An indeterminate 3 cm left thyroid nodule. Further assessment with thyroid ultrasound to b e considered as indicated.Bones /joints: No acute fracture. Soft tissues: Normal. No sign ificant soft tissue swelling .Lungs: Mild centrilobular e mphysematous changes.IMPRESS ION:1. A focal critical, great er than 85%, stenosis of the proximal left ICA 5 mmfrom th e origin. This is due to nonca lcified atheromatous pl aques. The rest ofthe left cerv ical ICA is small in calibe r.2. Moderate atheromatous ca lcifications in the right carot id bulb, no stenosis.3. An indeterminate 3 cm left thyroid nodule. Recommendation as below.COMMENTS: Consistent with the [place] [employer]'s Inc idental FindingsCommitt ee white paper (J Am Juan M Radi ol 2014): In patients aged 3 5 years andolder with a n incidental thyroid nodule equal to or greater than 1. [address], MRI or extr athyroidal US, further evaluat ion with dedicatedthyroi d US is recommended for patients with normal life exp ectancy and withoutcomorbid ities. For smaller nodules without suspicious feat ures, no furtherevaluati on or follow up is recommended.REF ERENCES:NASCET CRITERIA. The d egree of internal caroti d artery stenosis is bas ed onNASCET criteria. Britney l is no stenosis. Mild is less than 50% stenosis.Mo derate is 50-69% stenosis . Severe is 70% to 99% stenosis . Total occlusion isno detectable patent lumen.Swathi tian MD On 08/16/2019 12: 22:53; [id number] -Read by: Swathi Najera ated Date/time: 08/16/19 12:22 Electronically Signed by: Kalina Acosta 08/16/2011:22FI NAL REPORT [facility] PhysiciansPositive Retinal Eye Exam (Diabetic)2018-07-10 05:00:00 Test Item Value Reference Range Interpretation Comments Positive Diabetic Eye Screening 10Jul2018 A (test code = Positive Diabetic Eye Screening) [facility] Physicians
== END 2020-12-14 22:15 | disposition home health service (06) | DRG 690 ==
LOC: 2ND 16:17
PROVIDERS: ADMIT Urology; ATTEND Urology
PROC: 02HV33Z Insertion of Infusion Device into Superior Vena Cava, Percutaneous Approach (ICD-10-PCS; principal; 2020-12-14)
DX: N39.0 Urinary tract infection, site not specified (principal); E87.1 Hypo-osmolality and hyponatremia; B96.5 Pseudomonas (aeruginosa) (mallei) (pseudomallei) as the cause of diseases classified elsewhere; E78.5 Hyperlipidemia, unspecified; D09.0 Carcinoma in situ of bladder; I12.9 Hypertensive chronic kidney disease with stage 1 through stage 4 chronic kidney disease, or unspecified chronic kidney disease; E11.22 Type 2 diabetes mellitus with diabetic chronic kidney disease; N18.32 Chronic kidney disease, stage 3b; Z20.822 Contact with and (suspected) exposure to COVID-19
CPT/HCPCS: 36415; 36569; 71045; 71046; 80048; 80053; 80170; 82248; 82947; 83605; 83690; 83735; 84100; 85025; 85610; 87040; 93005; 94010; J0692; J1580; J1644; J2405; J7030; J7120; U0003

== ENCOUNTER 2020-12-18 09:51 | Day surgery (SDC) | payer OTHER ==
[~2020-12-18 09:51] MED LIST: Gentamicin Inj 200 MG in NA CHLORIDE 0.9% 100 ML IV SCH
[2020-12-18] MEDS ORDERED: NA CHLORIDE 0.9% 1,000 ML ONE (10:32)
[2020-12-18] MEDS ORDERED: GEMCITABINE HCL 26.3 ML IVPB ONE (10:45)
[2020-12-18] MEDS ORDERED: CEFEPIME 1 GM in NA CHLORIDE 0.9% 100 ML IV ONE (11:00)
[2020-12-18] MEDS ORDERED: MIDAZOLAM HCL 2 MG/2 ML INJ ONE (11:53)
[2020-12-18] MEDS ORDERED: propofoL 200 MG/20 ML VIAL IV ONE ×2 (11:53→15:05)
[2020-12-18] MEDS ORDERED: FENTANYL CITR 100 MCG/2 ML ONE (11:53)
[2020-12-18] MEDS ORDERED: LIDOCAINE 2% MPF 5 ML VIAL ONE (11:55)
[2020-12-18] MEDS ORDERED: ROCURONIUM 50 MG/5 ML VIAL IV ONE ×2 (12:18→14:00)
[2020-12-18] MEDS ORDERED: ONDANSETRON 4 MG/2 ML VIAL ONE (12:19)
[2020-12-18] MEDS: HYDROMORPHONE HCL 1 MG/ML INJ ONE ×2 (15:39→15:50)
--- NOTE | 2020-12-18 15:40 | RAD REPORT ---
EXAM DESCRIPTION: RAD - Urethrocystogrphy Retrograde - 12/18/2020 3:27 pm FINDINGS: There were 39 portable KUB images obtained during fluoroscopic assisted placement of urete ral stents. Final images showed stents in good position. There is some extravasation of contrast from the inferior aspect of right kidney. Fluoro time was 1:01 .
[2020-12-18] MEDS ORDERED: OPIUM/BELLADONNA SUPPOS (30-16.2 MG) PR ONE ×2 (15:46→16:35)
[2020-12-18] MEDS ORDERED: HYDROCODONE/APAP 5/325 MG TAB PO PRN (16:35)
[2020-12-18] MEDS ORDERED: HYDROCODONE/APAP 5/325 MG TAB ONE (18:14)
[2020-12-18 20:11] VITALS: BP 128/54; TEMP 98.8; O2SAT 90
--- NOTE | 2020-12-19 01:49 | OP ---
Date of Procedure: 12/18/2020 Surgeon: PING WOOD Preoperative Diagnoses: 1.Carcinoma in situ of the bladder. 2.Bilateral upper tract positive cytologies. 3.Left distal ureteral stricture disease. 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 Postoperative Diagnoses: 1.Carcinoma in situ of the bladder. 2.Bilateral upper tract positive cytologies. 3.Left distal ureteral stricture disease. 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 Principal Procedure: 1.Cystoscopy. 2.Right retrograde pyelography. 3.Right ureteral stent exchange. 4.Internalization of left nephroureteral stent by extraction of left nephroureteral tube. 5.Left ureteroscopy with brush biopsy of distal ureteral strictured segment. 6.Left double-J ureteral stent placement. 7.Transurethral resection of the left ureteral orifice and left lateral wall near dome bladder lesio n. 8.Urethral Lakhani catheter placement. 9.Instillation of intravesical gemcitabine chemotherapy 2 g in 50 cc normal saline. Indication For Procedure: Mr. Vee is a 75-year-old gentleman with significant medical comorbi dities, who was being treated by an outside urologist, who performed a right ureteroscopic biopsy, ar ound which time the patient was found to have what was initially suspected or reported to the patient to be a perinephric hematoma in the right kidney as a complication of the biopsy. The need for eval uation of his upper tracts remain because of bilateral positive ureteral cytologies that were present as well as bladder cytologies despite limited bladder biopsies performed by that outside urologist t hat were negative. I then took the patient to the operating room at [facility] where random bladder biopsies were performed in addition to resection of the left ureteral orifice that was stenotic and not able to be cannulated and additional bilateral ureteral wash cytologies were obtain ed after right retrograde pyelography was performed and identified the presence of a collecting syste m fistula into the perinephric space on the right side, but was unable to cannulate the left ureteral orifice due to stenosis and stricture of that region. I thus arranged for the patient to have a lef t percutaneous nephrostomy tube placed and nephroureteral stent, which the interventional radiologist placed after dilating a distal strictured ureteral segment. A Lakhani catheter was also in place to m aximize drainage and potentially allow healing of the right collecting system to perinephric space fi stula. As such, the patient presents today in followup for evaluation of the left strictured distal ureteral segment to assess for the presence of visible tumor or tumor found pathologically, but also to re-evaluate the right side to see if the fistula has healed to sufficiently to allow ureteroscopy and assessment of the right renal unit for urothelial malignancy to explain the presence of the abnor mal cytology there. Procedure In Detail: The patient was consented in the preoperative holding area before being transfe rred to the operative suite where general anesthesia was induced. He was being actively treated with ceftriaxone 2 g IV q.24 hours, continuation at home following an inpatient admission for complicated febrile UTI. He was given an additional dose of 200 mg of IV gentamicin for synergistic dosing prep rocedure. He was then placed in the lithotomy position, padded and secured to the table appropriatel y. His genitalia were prepped using Hibiclens and draped in standard fashion. The case was begun us ing a 22-Croatian rigid cystoscope to traverse the urethra and into the bladder with ease. The area of the prostate fossa where prior prostatic urethral biopsies were performed had some fibrinous debris there. The bladder itself was free of any significantly suspicious papillary mucosa lesion. The charity nts were noted to emanate from both the right and the left ureteral orifice with the left stent noted to be associated with the nephrostomy tube emanating from his back. Within the left lateral wall ne ar the dome, there was a slight irregular area of mucosa, which was likely associated with contact ir ritation from the stents in place. I began the case by grasping the right ureteral stent and deliver ing it via the meatus before passing a Sensor wire up the stent and coiling it within the putative co llecting system. I then passed a dual-lumen catheter over the Sensor wire in order to perform a retr ograde pyelogram study. Right retrograde pyelography: Using a 70:30 mixture of Omnipaque and saline, contrast was injected v ia the second lumen of the dual-lumen catheter and did propagate up a nondilated ureter before enteri ng the renal pelvis with mild caliectasis and unfortunately extravasation of contrast from the lower pole moiety into the perinephric space. As such, no further contrast was injected once this was iden tified, and I collected some of the urine that did efflux from the second lumen of the dual-lumen cat heter and again sent this for cytologic analysis. Then leaving the Sensor wire in place, I un-scrubb ed and left the operating room to discuss the patient's situation with his . I explained to the patient's that given the persistence of the fistula, if I were to replace the stent, since we we re planning intravesical gemcitabine administration today, the stent would allow reflux of the gemcit abine into the right collecting system, and this gemcitabine would likely also enter the perinephric space on the right. I explained that this would result in potentially significant increased symptoma tology from the chemotherapy, since typically the chemotherapy is well-tolerated because most of it i s not absorbed since it is administered within the urinary tract. In this case, it is possible that a significant quantity could be absorbed, which could result in potentially increased chemotherapy re lated side effects like nausea, vomiting, diarrhea, alterations of his hematologic state with lowerin g of his white blood count or anemia or other adverse chemotherapy related side effects. I explained that alternatively if we were to elect not to replace the right ureteral stent, we would likely be c ommitting him to the need for nephroureterectomy to manage the untreated upper tract urothelial carci noma, which has been seen on at least 2 prior upper tract cytologic analyses. I explained that I did take an additional sample of urine from the right upper tract today to again confirm the presence of the malignancy, but this likely was a definite. We discussed extensively for about 15 to 20 minutes the circumstance and the prognosis depending on the choice. I explained that if we did not place a stent and we ended up needing to perform a right nephroureterectomy, since there was evidence of stri cture disease in the distal left ureter, which was potentially also bladder cancer associated, there is a significant potential we may be required to also remove the left kidney. The totality of this c ould leave him anephric and completely dialysis dependent. I explained that for most people who are on dialysis, they still have their [place] kidneys, which may provide some minimal function, either vo lume management or some degree of electrolyte management, which may decrease the frequency of their n eed for dialysis. In this case, if both kidneys were removed, it is unclear what impact the frequenc y of dialysis may have on his ultimate morbidity and mortality. After extensive discussion, she was clearly ambivalent about her choice and what she thought the patient might wish; so I suggested that since there was potential involvement of the left side that we should try to do everything we could t o spare the right side and avoid potentially being in a circumstance where he would lose both kidneys . I suggested that if the biggest consequence from the chemotherapy administration is the potential adverse side effects of increased absorption of the chemotherapy, that would probably be a better opt ion for him then to leave the right kidney untreated at this time. She agreed, and so I returned to the operating room. I then replaced over the indwelling Sensor wire a 6-Croatian x 26 cm double-J stent by back-loading the rigid cystoscope over the indwelling Sensor wire. A coil was observed fluoroscopically within the u pper pole of the kidney and 1 cystoscopically was formed in the bladder. I then turned my attention to the left side where the nephroureteral stent was coiled outside the left ureteral orifice. I pass ed a Bentson guidewire from the cut portion of the left nephrostomy tube after prepping that site wit h ChloraPrep and passed the wire down the tube and into the bladder. I was then cystoscopically able to grasp the wire and deliver it via the meatus with ease. I then removed the nephrostomy tube from his back leaving the wire in place. I then passed a dual-lumen catheter over the Bentson guidewire into the distal ureter and again performed a retrograde pyelogram study. Left retrograde pyelography: Using a similar 70:30 mixture of Omnipaque and saline, the contrast mix ture was injected via the second lumen of the dual-lumen catheter and did propagate up the mid and pr oximal ureter with no evidence of filling defect before entering the renal pelvis, which was sharp an d without hydronephrosis or caliectasis and without any significant filling defect noted. Because I advanced the dual-lumen catheter beyond the point of stenosis in the mid distal ureter, I passed a Se nsor wire via the second lumen of the dual-lumen catheter and coiled it in the lower pole of the kidn ey alongside the indwelling Bentson guidewire placed via the back. I then used the Bentson guidewire to guide passage of the semi-rigid ureteroscope into the distal ureter because of the stenotic segme nt that prohibited ease of visual passage alone. I was able to navigate the semi-rigid ureteroscope beyond the point of stricture narrowing into the mid ureter and I surveyed the mid ureter into the UP J and saw no evidence of any papillary urothelial tumor or significant stricture. I then backed the scope into the mid distal ureter and observed the strictured segment. No papillary urothelial lesion s were appreciated, but the segment of ureter was significantly narrowed. As such, I employed a uret eroscopic brush biopsy and made multiple passes along each wall of the ureter to swipe the tissue and hopefully collect some of the cells for pathologic analysis. The tip of the brush was then sent for cytologic analysis in formalin. I then passed a Bentson guidewire via the ureteroscope under direct vision into the collecting system and was then able to pass over the Bentson guidewire, the flexible ureteral scope into the lower pole of the kidney. I then surveyed each of the calices of the kidney using antegrade injection of contrast to verify that each of the calices was identified and had been visualized. No papillary urothelial tumors were noted within the renal pelvis or calices. I then s urveyed from the proximal down into the mid ureter and again through the distal ureteral more stenoti c segment and again saw no evidence of any papillary urothelial tumors. Thus ureteroscopy was comple elizabeth and I back-loaded the rigid cystoscope over the Sensor wire and passed a 7-Croatian x 26 cm double- J left ureteral stent. A coil was observed fluoroscopically within the lower pole and 1 cystoscopica lly was formed in the bladder. I then turned my attention back to the bladder and the stenotic left ureteral orifice. I then dilated his meatus and fossa navicularis to 30-Croatian using urethral sounds and utilized a visual obturator and the 26-Croatian resectoscope set to traverse the urethra and into the bladder. I then utilized a thin resection loop to resect the ureteral orifice and the stenotic o pening observed there. The tissue was sent for pathologic analysis. The additional left lateral wal l near the dome irregular tissue was similarly resected and sent for pathologic analysis. Discrete b leeding vessels were pinpoint fulgurated and then I removed the resectoscope. I then passed a 20-[facility] [address] Lakhani catheter into his bladder with ease and instilled 15 cc of sterile water into the bal loon. I then decompressed his bladder fluid and urine, and then retrograde infused 2 g of gemcitabin e in 50 cc of normal saline into his bladder. The catheter was clamped and connected to a leg bag an d wrapped in towels around his genitalia to prevent any spillage from contacting his skin. The patie nt was then taken out of the lithotomy position, awakened from general anesthesia, transferred to a tretcher, and then transferred to the recovery room in good condition. Complications: None. Discharge Disposition: We will attempt to maintain the chemotherapy intravesically for at least 60 t o 90 minutes where the stents will allow it to also propagate into the ureters and collecting systems and treat potentially any urothelial carcinoma or CIS in those regions. After 60 to 90 minutes, the chemotherapy will be drained into a leg bag and the catheter will be removed and discarded. The pat ient may then be discharged home and should follow up within the next couple of weeks to discuss the results of the biopsy pathology and the right ureteral cytology sent. Subsequent determination of ma guille of his CIS of the bladder and upper tract urothelial disease will then be determined. FIDELIA/AIDA Voice ID: [id number] Report ID: [id number]
== END 2020-12-18 18:10 | disposition home or self-care (01) ==
LOC: OR 09:51
PROVIDERS: ATTEND Urology
PROC: 0TB78ZZ Excision of Left Ureter, Via Natural or Artificial Opening Endoscopic (ICD-10-PCS; 2020-12-18)
PROC: 0TB78ZX Excision of Left Ureter, Via Natural or Artificial Opening Endoscopic, Diagnostic (ICD-10-PCS; 2020-12-18)
PROC: 0T788DZ Dilation of Bilateral Ureters with Intraluminal Device, Via Natural or Artificial Opening Endoscopic (ICD-10-PCS; 2020-12-18)
PROC: 0TP5X0Z Removal of Drainage Device from Kidney, External Approach (ICD-10-PCS; 2020-12-18)
PROC: 3E0K705 Introduction of Other Antineoplastic into Genitourinary Tract, Via Natural or Artificial Opening (ICD-10-PCS; principal; 2020-12-18 13:15)
DX: D09.0 Carcinoma in situ of bladder (principal); C64.9 Malignant neoplasm of unspecified kidney, except renal pelvis
CPT/HCPCS: 51720; 53899; 52354; 52332; 50561; 88108; 82947 ×2; 88305 ×2; 74450; 51610; J2704 ×2; J1580; J3010; J1170; J9201; J7030; J2405; J0692; J2250

== ENCOUNTER 2021-01-01 08:50 | Day surgery (SDC) | payer OTHER ==
[2021-01-01 10:07] VITALS: BP 144/67; TEMP 98.2; O2SAT 96; BMI 32.7
== END 2021-01-01 10:45 | disposition home or self-care (01) ==
LOC: DS 08:50
PROVIDERS: ATTEND Urology
PROC: 05PY33Z Removal of Infusion Device from Upper Vein, Percutaneous Approach (ICD-10-PCS; principal; 2021-01-01)
DX: C67.9 Malignant neoplasm of bladder, unspecified (principal)

== ENCOUNTER 2021-01-14 11:13 | Day surgery (SDC) | payer OTHER ==
[2021-01-14] MEDS ORDERED: Levofloxacin 250mg IV 250 MG/50 ML BAG IV ONE (11:33)
[2021-01-14 12:58] VITALS: BMI 33.2
[2021-01-14 13:02] VITALS: BP 147/71; TEMP 98; O2SAT 97
== END 2021-01-14 12:35 | disposition home or self-care (01) ==
LOC: DS 11:13
PROVIDERS: ATTEND Urology
DX: N39.0 Urinary tract infection, site not specified (principal)
CPT/HCPCS: 80053; 82728; 83540; 84466; 96365

== ENCOUNTER → 2021-01-17 | Day surgery (SDC) | payer OTHER ==
[~2021-01-17] MED LIST changes: +GEMCITABINE HCL 26.3 ML IVPB ONE; -Gentamicin Inj 200 MG in NA CHLORIDE 0.9% 100 ML IV SCH
[2021-01-17 10:11] LABS: Urine Appearance TURBID (Clear); Urine Bilirubin NEGATIVE (Negative); Urine Blood 3+ (Negative); Urine Color Red (Yellow); Urine Glucose NEGATIVE (Negative); Urine Protein 2+ (Negative); Urine Specific Gravity 1.015 (1.005-1.030); Urine Urobilinogen 0.2 mg/dL (0.2-1.0)
[2021-01-17 10:49] LABS: Urine Bacteria 20-50 /HPF (NONE SEEN); Urine RBC LOADED /HPF (NONE SEEN)
[2021-01-17 11:33] VITALS: BP 129/56; TEMP 99; O2SAT 94
[2021-01-17 11:35] VITALS: BMI 32.7
== END ==
LOC: DS 09:42
PROVIDERS: ATTEND Urology
DX: N39.0 Urinary tract infection, site not specified (principal)
CPT/HCPCS: 81001; 87086; 87088; J9201

== ENCOUNTER 2021-01-22 11:25 | Day surgery (SDC) | payer OTHER ==
[2021-01-22 11:28] LABS: Urine Appearance CLOUDY (Clear); Urine Bilirubin NEGATIVE (Negative); Urine Blood 3+ (Negative); Urine Color YELLOW (Yellow); Urine Glucose NEGATIVE (Negative); Urine Protein 3+ (Negative); Urine Specific Gravity 1.015 (1.005-1.030); Urine Urobilinogen 0.2 mg/dL (0.2-1.0); Urine pH 6.5 (5.0-7.0)
[2021-01-22 11:29] LABS: Urine Microscopic Reflex ORDER UMIC
[2021-01-22 11:41] LABS: Urine Bacteria >50 /HPF (NONE SEEN); Urine RBC >50 /HPF (NONE SEEN)
[2021-01-22] MEDS ORDERED: NA CHLORIDE 0.9% 1,000 ML ONE (12:12)
[2021-01-22] MEDS ORDERED: GENTAMICIN 80 MG/100 ML BAG 160 MG/200 ML BAG IV ONE (13:56)
[2021-01-22] MEDS ORDERED: OPIUM/BELLADONNA SUPPOS (30-16.2 MG) PR ONE ×2 (15:46→15:50)
[2021-01-22] MEDS ORDERED: LIDOCAINE 1% MPF 5 ML VIAL ONE (15:48)
[2021-01-22] MEDS ORDERED: FENTANYL CITR 100 MCG/2 ML ONE ×2 (15:48→16:25)
[2021-01-22] MEDS ORDERED: propofoL 200 MG/20 ML VIAL IV ONE (15:48)
[2021-01-22] MEDS: MORPHINE 4 MG/ML SYR ONE ×4 (16:50→17:26)
--- NOTE | 2021-01-22 16:58 | RAD REPORT ---
EXAM DESCRIPTION: RAD - Urethrocystogrphy Retrograde - 01/22/2021 4:51 pm CLINICAL HISTORY: CYSTO COMPARISON: Urethrocystogrphy Retrograde dated 12/18/2020 FINDINGS: Total fluoro time: 0.31 minutes
[2021-01-22] MEDS: HYDROMORPHONE HCL 1 MG/ML INJ ONE ×3 (17:00→17:10)
[2021-01-22] MEDS ORDERED: MORPHINE 4 MG/ML SYR ONE (17:32)
[2021-01-22] MEDS ORDERED: HYDROMORPHONE HCL 1 MG/ML INJ IV ONE (17:45)
[2021-01-22] MEDS ORDERED: ACETAMINOPHEN 650MG/RECT SUPP PR ONE (18:00)
[2021-01-22] MEDS ORDERED: PHENAZOPYRIDINE 100MG TAB PO ONE (18:00)
[2021-01-22 18:48] VITALS: TEMP 99.2
[2021-01-22 19:09] VITALS: BP 125/57; O2SAT 96
--- NOTE | 2021-01-22 19:39 | OP ---
Surgeon: PING WOOD Preoperative Diagnoses: 1.Carcinoma in situ of bladder. 2.Right upper tract high-grade urothelial carcinoma. 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 Postoperative Diagnoses: 1.Carcinoma in situ of bladder. 2.Right upper tract high-grade urothelial carcinoma. 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 Principal Procedures: 1.Cystoscopy. 2.Right ureteral stent extraction. 3.Left ureteral stent exchange. 4.Bladder washout. 5.Lakhani catheter placement. 6.Instillation of gemcitabine 2 g in 50 cc normal saline intravesical chemotherapy. Indication For Procedure: Mr. Vee has undergone a very complex course of CIS of the bladder a nd high-grade urothelial carcinoma involving his right upper tract with obstruction of his left dista l ureter at the level of the bladder due to CIS causing ureteral orifice stenosis there. He has now initiated a course of intravesical chemotherapy using gemcitabine as he had been treated on 2 prior o ccasions with induction course of BCG and yet had recurrence. He is scheduled for robot-assisted lap aroscopic right nephroureterectomy for the latter part of February, and we wanted to remove the stent in preparation for that to allow the periureteral reaction to dissipate. The left ureteral stent nee ds to remain in place in order to prevent stenosis of the ureteral orifice and the lateral reflux of the chemotherapy into the distal ureter to treat the CIS potentially involving there. As such, becau se he has also had complicated Pseudomonas infection that persisted despite 2 weeks of cefepime IV an timicrobial therapy, he was started on Levaquin, which was observed under monitored anesthesia care, and he had no adverse reaction suggestive of an allergic reaction, which he had previously indicated to Cipro. As a result, he continues on Levaquin 250 mg daily, which is appropriate for his chronic k idney disease. He has also seen Dr. Zee because of the chronic kidney disease. Procedure In Detail: The patient was consented in the preoperative holding area before being transfe rred to the operative suite where general anesthesia was induced. He was given gentamicin 160 mg IV antimicrobial prophylaxis in addition to the Levaquin that he is taking daily at home. Pneumoboots w ere provided for DVT prophylaxis. He was placed in the supine position and then in lithotomy, padded and secured to the table appropriately. His genitalia were prepped using Hibiclens and draped in st andard fashion. The case was begun using a 22-Tuvaluan rigid cystoscope to traverse the urethra and in to the bladder with ease. There was fibrinous debris within the prostatic urethra and the bladder wa s entered. The ureteral orifices were orthotopic in location with the stents emanating from within. The right ureteral stent was grasped and delivered via the meatus with ease, removed from the upper tract. The left ureteral stent was then grasped and delivered to the meatus leaving the tip of the s tent in the mid ureter. Via the stent, a Sensor wire was passed into the putative upper pole of the kidney. Over the Sensor wire, I passed a 5-Tuvaluan ureteral access catheter and injected contrast to perform a retrograde pyelogram. Left Retrograde Pyelography: Using a 70:30 mixture of Omnipaque and saline, contrast was injected via the lumen of the 5-Tuvaluan ur eteral access catheter and did delineate the pelvis and calices of the left kidney. I thus placed th e Sensor wire back into the left renal pelvis where it coiled in the upper pole, and I removed the 5- Tuvaluan ureteral access catheter. I then back-loaded the cystoscope over the Sensor wire and placed a 6-Tuvaluan x 24 cm double-J left ureteral stent. A coil was observed fluoroscopically within the xochilt l pelvis and 1 cystoscopically was formed in the bladder. I then decompressed his bladder of fluid a nd urine and contrast from the upper tract. I then irrigated the bladder to remove any fibrinous geraldo ris from the prior stents, which may have been colonized with the Pseudomonas. Multiple rounds of ir rigation were performed until no residual fibrinous debris was present within. I additionally grabbe d some of the fibrinous debris using alligator graspers and removed it directly under vision. I then left his bladder partially full and placed a 22-Tuvaluan 2-way urethral Lakhani catheter into his bladde r with ease. 20 cc of sterile water was placed in the balloon. I then decompressed his bladder of f luid, urine and any contrast from the upper tract on the left side. With his bladder completely decompressed, I then retrograde instilled the gemcitabine 2 g and 50 cc n ormal saline into his bladder. A Tanya clamp was applied to the catheter and the catheter was connec elizabeth to a leg bag. His genitalia were then draped off extensively using towels and the bag and cathet er were placed inside of fluid impermeable drape. He was taken out of the lithotomy position, awaken ed from general anesthesia, transferred to a stretcher, and then transferred to the recovery room in good condition. Complications: None. Discharge Disposition: He will rotate by 1/4 turn once he is awake from general anesthesia, every 15 minutes over the course of the next hour. He received a belladonna and opium suppository before evelio ng taken back for surgery, so hopefully he will tolerate the instillation for a full 60 minutes targe ting 90 minutes. Subsequent follow up will be established in 2 weeks for another intravesical gemcit abine instillation on Thursday and on . The lash gemcitabine instillation will be 2 weeks lat er. He will continue the levofloxacin oral therapy pending nephroureterectomy on the right side. Of note, cystoscopically, the bladder was less erythematous suggesting potential response to the chemot herapy from the CIS. He subsequently will require repeat cystoscopic biopsies of the bladder. This may be done at the time of laparoscopic nephroureterectomy. FIDELIA/AIDA Voice ID: [id number] Report ID: [id number]
== END 2021-01-22 19:33 | disposition home or self-care (01) ==
LOC: OR 11:25
PROVIDERS: ATTEND Urology
PROC: 0T788DZ Dilation of Bilateral Ureters with Intraluminal Device, Via Natural or Artificial Opening Endoscopic (ICD-10-PCS; 2021-01-22)
PROC: 3E0K805 Introduction of Other Antineoplastic into Genitourinary Tract, Via Natural or Artificial Opening Endoscopic (ICD-10-PCS; principal; 2021-01-22 13:00)
DX: D09.0 Carcinoma in situ of bladder (principal); D09.19 Carcinoma in situ of other urinary organs; Z20.822 Contact with and (suspected) exposure to COVID-19
CPT/HCPCS: 87088; 87086; 74450; 51610; 51720; 52332; U0003; J2704; J3010; J1170; J9201; J7030; J1580; 81003; 81015

== ENCOUNTER 2021-02-19 12:05 | Day surgery (SDC) | payer OTHER ==
[2021-02-19] MEDS ORDERED: OPIUM/BELLADONNA SUPPOS (30-16.2 MG) PR ONE (15:14)
[2021-02-19] MEDS ORDERED: CODEINE 30MG/APAP 300MG TAB PO PRN (15:14)
[2021-02-19] MEDS ORDERED: ONDANSETRON 4 MG/2 ML VIAL ONE (15:18)
[2021-02-19] MEDS ORDERED: MIDAZOLAM HCL 2 MG/2 ML INJ ONE (15:18)
[2021-02-19] MEDS ORDERED: LIDOCAINE 1% MPF 5 ML VIAL ONE (15:18)
[2021-02-19] MEDS ORDERED: propofoL 200 MG/20 ML VIAL IV ONE (15:18)
[2021-02-19] MEDS ORDERED: FENTANYL CITR 100 MCG/2 ML ONE (15:19)
[2021-02-19] MEDS: HYDROMORPHONE HCL 1 MG/ML INJ ONE ×2 (16:25→16:38)
[2021-02-19] MEDS ORDERED: NA CHLORIDE 0.9% 1,000 ML ONE (16:46)
--- NOTE | 2021-02-19 16:57 | RAD REPORT ---
EXAM DESCRIPTION: RAD - Urethrocystogrphy Retrograde - 02/19/2021 3:53 pm FINDINGS: There were 8 portable KUB images obtained during fluoroscopic assisted placement of a left ureteral double pigtail stent. Images show stepwise placement of the stent with no suspicious or unexpected finding. Fluoro time was 0.17 minutes with a cumulative dose of 9.9 mGy.
[2021-02-19 18:21] VITALS: TEMP 98.4; O2SAT 94
[2021-02-19 18:23] VITALS: BP 159/77
--- NOTE | 2021-02-20 12:53 | OP ---
Surgeon: PING WOOD Preoperative Diagnoses: 1.Complicated urinary tract infection with Pseudomonas. 2.Carcinoma in situ of the bladder and left ureteral orifice. 3.Right upper tract high-grade urothelial carcinoma. 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 Postoperative Diagnoses: 1.Complicated urinary tract infection with Pseudomonas. 2.Carcinoma in situ of the bladder and left ureteral orifice. 3.Right upper tract high-grade urothelial carcinoma. 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 Principal Procedure: 1.Cystoscopy with bladder washout. 2.Left retrograde pyelography. 3.Left ureteral stent exchange. 4.Intravesical instillation of gemcitabine 2 g and 50 cc normal saline. 5.Urethral Lakhani catheter placement. Indication For Procedure: Mr. Vee is a 75-year-old gentleman with multiple medical comorbidit ies, who has undergone a very difficult course of management of his urothelial carcinoma of his upper tract and CIS of the bladder. This management started with outside urologist, who eventually gave u p and referred him to [facility] [place], where he saw me in consultation. We have since attempted to treat his intravesical disease with gemcitabine intravesical because he had previ ously been given 2 induction courses of BCG in not too distant past, and had recurrence after 9 month s from the first induction course given. As a result, we elected gemcitabine as an alternative becau se he would be a less than optimal cystectomy candidate. Unfortunately, he developed a complicated i nfection with Pseudomonas while we were managing obstruction of his left ureteral orifice and had a s tent in place resulting in need for 2 weeks of IV cefepime, which cleared his infection. Since that time, the Pseudomonas has persisted despite exchange of the stent and daily Levaquin antimicrobial th erapy/prophylaxis. Last week, he was unable to tolerate the intravesical gemcitabine for more than a few minutes due to suspected cystitis. Since his urine was even more suspicious-appearing today wit h a greater number of white cells, despite the culture from last week not revealing any positive grow th, I recommended against attempt at awake instillation of gemcitabine and instead recommended operat jordan stent exchange and gemcitabine instillation. He was also given enhanced antimicrobial therapy at that time with 2 g of cefepime as well as 160 mg of IV gentamicin. Procedure In Detail: The patient was consented in the preoperative holding area before being transfe rred to the operative suite, where general anesthesia using an LMA was induced. Anesthesia given was moderate due to the brief planned course of the procedure. He was given the 2 g of cefepime and 160 mg of gentamicin. He was placed in the lithotomy position, padded and secured to the table appropri ately. His genitalia were prepped using Hibiclens and he was draped in standard fashion. The case w as begun using a 22-Liberian rigid cystoscope to traverse the urethra and into the bladder with ease. The bladder was decompressed of some mildly cloudy urine and then, I backfilled the bladder with norm al saline and decompressed it multiple occasions to irrigate it of any bacteriuria. I then grasped t he left ureteral stent and delivered it via the meatus. I passed a Sensor wire via the stent into th e putative collecting system of his left kidney as observed fluoroscopically while the stent tip was still in the mid distal ureter. I then removed the stent completely and passed up a 5-Liberian uretera l access catheter into the distal ureter and performed a retrograde pyelogram. Left retrograde pyelography: Using a 70:30 mixture of Omnipaque and saline, contrast mixture was injected via the lumen of the 5-F rench ureteral access catheter and did propagate up the left distal into the mid ureter before slowly entering the renal pelvis. Contrast did not easily flow through and up into the renal pelvis due to efflux of the contrast around the 5-Liberian ureteral access catheter into the bladder. However, the renal pelvis was delineated and the coil of the wire was in the upper pole; so over the wire, I passe d a 6-Liberian by 26 cm double-J left ureteral stent. A coil was observed fluoroscopically in the uppe r pole and 1 cystoscopically in the bladder. I then removed the cystoscope and placed an 18-Liberian u rethral Lakhani catheter into his bladder with ease. 30 cc of sterile water was placed into the balloo n. The bladder was decompressed of fluid and urine, and then I retrograde instilled 2 g of gemcitabi ne and 50 cc normal saline into his bladder. The catheter was clamped and connected to a leg bag. T newtonels were draped across the patient's genitalia, and pelvic region and the catheter and leg bag were wrapped in impermeable fluid drapes. The patient was then taken out of the lithotomy position, awak ened from general anesthesia, transferred to a stretcher, and then transferred to the recovery room i n good condition. Of note, he was given a belladonna and opiate suppository right after induction of anesthesia was complete. Complications: None. Discharge Disposition: We will plan a repeat intravesical instillation of gemcitabine on of this week with an additional 2 g of cefepime and 160 mg of gentamicin administered at that time. He should continue the Levaquin in the meantime. FIDELIA/AIDA Voice ID: [id number] Report ID: [id number]
== END 2021-02-19 17:40 | disposition home or self-care (01) ==
LOC: OR 12:05
PROVIDERS: ATTEND Urology
PROC: 3E0K805 Introduction of Other Antineoplastic into Genitourinary Tract, Via Natural or Artificial Opening Endoscopic (ICD-10-PCS; 2021-02-19)
PROC: 0T778DZ Dilation of Left Ureter with Intraluminal Device, Via Natural or Artificial Opening Endoscopic (ICD-10-PCS; principal; 2021-02-19 14:30)
DX: D09.0 Carcinoma in situ of bladder (principal); N39.0 Urinary tract infection, site not specified; R78.81 Bacteremia; B96.5 Pseudomonas (aeruginosa) (mallei) (pseudomallei) as the cause of diseases classified elsewhere
CPT/HCPCS: 52332; 51720; 74450; 51610; J2704; J2250; J3010; J1170; J7030; J2405

== ENCOUNTER 2021-04-09 07:25 | Day surgery (SDC) | payer OTHER ==
[2021-04-04 14:24] LABS: Absolute Lymphocytes (CBC) 2.2 K/uL (0.7-4.9); Hematocrit 30.6 % (39.6-49.0); Lymphocytes % 20.8 % (15.3-44.8); MPV 8.5 fL (7.6-11.3); RBC Red Blood Cell Count 3.46 M/uL (4.33-5.43)
[2021-04-04 14:48] LABS: Potassium 4.1 mmol/L (3.5-5.1)
[2021-04-04 15:19] LABS: Blood Morphology Comment NOT SEEN (NOT SEEN); Platelet Estimate ADEQ; White Blood Cell Scan OK (OK)
[2021-04-09] MEDS ORDERED: NA CHLORIDE 0.9% 1,000 ML ONE (07:52)
[2021-04-09] MEDS ORDERED: CEFAZOLIN/SWI 2gm 2 GM/20 ML SYR ONE (07:53)
[2021-04-09] MEDS ORDERED: propofoL 200 MG/20 ML VIAL IV ONE (08:45)
[2021-04-09] MEDS ORDERED: FENTANYL CITR 100 MCG/2 ML ONE (08:45)
[2021-04-09] MEDS ORDERED: LIDOCAINE 1% MPF 5 ML VIAL ONE (08:45)
[2021-04-09] MEDS ORDERED: KETOROLAC 30 MG/ML INJ ONE (09:15)
[2021-04-09] MEDS ORDERED: ONDANSETRON 4 MG/2 ML VIAL ONE (09:15)
[2021-04-09] MEDS ORDERED: dexAMETHasone 10 MG/ML VIAL ONE (09:15)
[2021-04-09 10:41] VITALS: BP 160/72; TEMP 97.1; O2SAT 96
--- NOTE | 2021-04-09 10:41 | RAD REPORT ---
EXAM DESCRIPTION: RAD - Urethrocystogrphy Retrograde - 04/09/2021 9:41 am CLINICAL HISTORY: CYSTO COMPARISON: Urethrocystogrphy Retrograde dated 02/19/2021 FINDINGS/IMPRESSION: Nine intraoperative fluoroscopic images were submitted. This shows cannulation of the left ureter and contrast injection. No filling defects are identified. Fluoro time: 29 seconds
--- NOTE | 2021-04-09 22:46 | OP ---
Surgeon: PING WOOD Preoperative Diagnoses: 1.Carcinoma in situ of bladder. 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 3.Status post right laparoscopic converted to open nephroureterectomy. Postoperative Diagnoses: 1.Carcinoma in situ of bladder. 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 3.Status post right laparoscopic converted to open nephroureterectomy. Principal Procedures: 1.Cystoscopy with bladder biopsies and fulguration. 2.Left retrograde pyelography. Indication For Procedure: Mr. Vee is well-known to this facility with his history of CIS of t he bladder and right upper tract urothelial carcinoma associated with CIS causing stenosis of the lef t ureteral orifice. 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 He subsequently has undergone remov al of the right kidney and ureter and pathologically was found to only have dysplasia, likely because of some treatment effect from the intravesical gemcitabine which would have refluxed up the stent an d into the kidney. As a result, he presents today for definitive re-evaluation of the bladder given the attempt at intravesical gemcitabine chemotherapy that was performed with minimal success, given h is inability to tolerate the chemotherapy for the desired period of time with both stents in place, b ut also to re-stage ongoing left ureteral stenosis/stricture disease and the potential for recurrence of obstruction. Procedure In Detail: The patient was consented in the preoperative holding area before being transfe rred to the operative suite where general anesthesia was induced. He was given Ancef 2 g IV antimicr obial prophylaxis and pneumo boots were provided for DVT prophylaxis. He was placed in the lithotomy position, padded and secured to the table appropriately. His genitalia were prepped using Hibiclens and draped in standard fashion. The case was begun using a 22-Brazilian rigid cystoscope to traverse t he urethra and into the bladder with ease. There was some fibrinous debris within the prostatic uret hra from prior biopsies performed there, but no papillary tumors were noted within the prostatic uret hra. Within the bladder, the left ureteral orifice was widely patent, having previously been resecte d and stented. There was no sign of erythema or papillary mucosal lesion around the left ureteral or ifice. The remainder of the bladder was then surveyed, and there were some mildly hemorrhagic patche s of the bladder within the left and the right lateral wall as well as the posterior region of the bl adder. The remainder of the bladder was free of any sign of erythema or mucosal lesion. As a result , I biopsied each of those areas of hemorrhagic mucosa and sent the tissue for pathologic analysis. I then cannulated his left ureteral orifice easily with a 5-Brazilian ureteral access catheter and perfo rmed a retrograde pyelogram. 1.Left retrograde pyelography: Using a 70:30 mixture of Omnipaque and saline, contrast was injected via the lumen of the 5-Brazilian ur eteral access catheter and did propagate into the distal ureter, which had some evidence of mild dila tion. The contrast was effluxing around the catheter directly into the bladder; so I advance the 5-F rench ureteral access catheter further into the distal ureter and reinjected the contrast this time o bserving it go up into the mid and proximal ureter without any evidence of filling defect noted. I t hen further advanced the catheter into the mid proximal ureter and injected contrast in order to deli neate each of the calices of the kidney and the renal pelvis. No filling defects were noted througho ut the entirety of the left upper tract, and after distending the collecting system on the left with the contrast mixture, I then removed the 5-Brazilian ureteral access catheter and took spot fluoroscopic images at 1 minute and 3 minutes after. There was immediate efflux of the contrast with less than 2 5% of residual contrast evident within the collecting system and calices at 3 minutes indicative of c omplete absence of obstruction. As such, with no filling defects noted, I then decompressed his blad crystal and removed the cystoscope. The patient was then taken out of the lithotomy position, awakened f rom general anesthesia, transferred to a stretcher, and then transferred to the recovery room in good condition. Complications: None. Discharge Disposition: He should follow up in the Urology Clinic, which may be via virtual visit. Discussion: To discuss the results of the pathology and determine next steps in management. Should there be persistence of CIS, we will have to consider potential repeat induction course of intravesic al gemcitabine, recognizing that without the stents in place this time, he may likely be able to tole rate retaining the chemotherapy for the desired periods of time and thus get more adequately treated. Alternatively, while an attempt at repeat induction BCG with interferon may be performed, given his prior failure after about 9 months, it is unclear the benefit of attempting additional BCG at this t john. We also discussed that performing a radical cystectomy, especially given the need for open conv ersion for his prior surgery would be incredibly challenging as an optimistic assessment. FIDELIA/AIDA Voice ID: [id number] Report ID: [id number]
== END 2021-04-09 10:55 | disposition home or self-care (01) ==
LOC: OR 07:25
PROVIDERS: ATTEND Urology
PROC: 0TBB8ZX Excision of Bladder, Via Natural or Artificial Opening Endoscopic, Diagnostic (ICD-10-PCS; principal; 2021-04-09 08:30)
DX: D09.0 Carcinoma in situ of bladder (principal); Z20.822 Contact with and (suspected) exposure to COVID-19; Z85.528 Personal history of other malignant neoplasm of kidney
CPT/HCPCS: 52204; 85025; 87086; 80048; 36415; 82947; 88305; 74450; 51610; U0003; J2704; J3010; J1100; J0690; J7030; J2405; 87088

== ENCOUNTER 2021-07-16 12:03 | Day surgery (SDC) | payer OTHER ==
[2021-07-12 14:33] LABS: Absolute Lymphocytes (CBC) 2.4 K/uL (0.7-4.9); Hematocrit 30.3 % (39.6-49.0); Lymphocytes % 24.1 % (15.3-44.8); MPV 8.9 fL (7.6-11.3); RBC Red Blood Cell Count 3.53 M/uL (4.33-5.43)
[2021-07-12 14:34] LABS: Protime INR 0.99
[2021-07-12 14:40] LABS: Potassium 4.8 mmol/L (3.5-5.1)
--- NOTE | 2021-07-13 14:28 | EKG ---
Test Date: 2021-07-12 Test Time: 14:13:39 Needle Loom Weaver: MELISSA MEASUREMENT RESULTS: Intervals: Rate: 75 VA: 172 QRSD: 150 QT: 422 QTc: 471 Benton: P: 76 VA: 172 QRS: -23 T: 31 INTERPRETIVE STATEMENTS: Normal sinus rhythm Right bundle branch block Abnormal ECG Compared to ECG 02/21/2021 12:59:03 Sinus tachycardia no longer present Left anterior fascicular block no longer present Bifascicular block no longer present Electronically Signed On 07-13-21 14:28:22 CDT by Eliazar Calderon
[2021-07-16] MEDS ORDERED: Ringers Lactate 1,000 ML IV ONE (12:28)
[2021-07-16] MEDS ORDERED: CIPROFLOXACIN 400mg IV 400 MG/200 ML BAG IV ONE (12:29)
[2021-07-16] MEDS ORDERED: ACETAMINOPHEN 500 MG TAB ONE (13:28)
[2021-07-16] MEDS ORDERED: FENTANYL CITR 100 MCG/2 ML ONE (16:03)
[2021-07-16] MEDS ORDERED: LIDOCAINE 1% MPF 5 ML VIAL ONE (16:03)
[2021-07-16] MEDS ORDERED: propofoL 200 MG/20 ML VIAL IV ONE (16:03)
[2021-07-16] MEDS ORDERED: ONDANSETRON 4 MG/2 ML VIAL ONE ×2 (16:05→17:29)
[2021-07-16] MEDS ORDERED: EPHEDRINE SULF 50 MG/ML VIAL ONE (16:54)
[2021-07-16] MEDS ORDERED: OPIUM/BELLADONNA SUPPOS (30-16.2 MG) PR ONE ×2 (17:24→18:06)
[2021-07-16] MEDS: FENTANYL CITR 100 MCG/2 ML ONE ×2 (17:25→17:36)
--- NOTE | 2021-07-16 17:34 | RAD REPORT ---
EXAM DESCRIPTION: RAD - Cystography - 07/16/2021 5:12 pm CLINICAL HISTORY: CYSTO COMPARISON: Urethrocystogrphy Retrograde dated 04/09/2021 FINDINGS: Total fluoro time: 7 seconds
[2021-07-16] MEDS ORDERED: LABETALOL HCL 100 MG/20 ML ONE (17:47)
[2021-07-16] MEDS ORDERED: PHENAZOPYRIDINE 100MG TAB PO ONE (18:06)
[2021-07-16 18:35] VITALS: BP 147/72; TEMP 97; O2SAT 93
--- NOTE | 2021-07-16 22:06 | OP ---
Surgeon: PING WOOD Preoperative Diagnoses: 1.History of CIS of the bladder. 2.Right upper tract urothelial carcinoma, status post right robot-assisted laparoscopic converted to open radical nephroureterectomy. 3.Gross hematuria. 4.Bladder lesion. Postoperative Diagnoses: 1.History of CIS of the bladder. 2.Right upper tract urothelial carcinoma, status post right robot-assisted laparoscopic converted to open radical nephroureterectomy. 3.Gross hematuria. 4.Bladder lesion. Principle Procedures: 1.Cystoscopy with bladder biopsies and fulguration. 2.Left retrograde pyelography. 3.Insertion of 18-Martiniquais urethral Lakhani catheter. 4.Instillation of gemcitabine 2 g and 50 cc normal saline intravesical chemotherapy. Indication For Procedure: Mr. 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 He subsequently underwent intravesical gemcit abine chemotherapy followed by right robot-assisted laparoscopic nephroureterectomy, and postoperativ andrea, there was clearance of the CIS from his bladder as confirmed from multiple bladder biopsies perf ormed 04/09/2021. He continued with once monthly intravesical gemcitabine with planned cystoscopy in this month, and prior to this once intravesical gemcitabine administration, he developed gross hemat uria and increased irritative LUTS. He thus underwent cystoscopic evaluation as an outpatient reveal ing multifocal erythematous irregular mucosa posteriorly and in the posterior lateral rebollar bilateral ly suspicious for possible CIS. Voided cytology and FISH studies were unremarkable for malignant eugene ls. However, given the potential presence of undiagnosed malignancy, he was counseled on the need fo r cystoscopic evaluation and bladder biopsies intraoperatively. While there, a left retrograde pyelo gram will be performed to rule out involvement of the left upper tract. Procedure In Detail: The patient was consented in the preoperative holding area before being transfe rred to the operative suite where general anesthesia was induced. He was given ciprofloxacin 400 mg IV antimicrobial prophylaxis as an intraoperative test dose knowing he has a listed allergy for cipro floxacin that is uncertain whether it was an actual true allergy. He had undergone test dose IV Leva tim antimicrobial therapy and subsequently tolerated oral Levaquin without issue in the months of pr ior intravesical and upper tract gemcitabine chemotherapy. As a result, it was reasonable to attempt to assess for any potential fixed drug reaction to the ciprofloxacin. Thus, the IV administration o f perioperative prophylaxis. Pneumo boots were provided for DVT prophylaxis. He was placed in the l ithotomy position, padded and secured to the table appropriately. His genitalia were prepped using H ibiclens and he was draped in standard fashion. The case was begun using a 22-Martiniquais rigid cystoscop e to traverse the urethra into the bladder with ease. There were no prostatic urethral lesions, and the bladder was entered. I surveyed the bladder in its entirety, and the right ureteral orifice was only slightly dimpled due to the extravesical retraction of the intramural ureter with the right neph roureterectomy. The cup of the mucosa was completely smooth without lesion. It was also visible wit h no significant channel present on the right. I then surveyed the left ureteral orifice, which ilene ined patent following its resection many months ago to visual inspection. The remainder of the bladd er was free of papillary mucosal lesion, however, in the posterior wall of the bladder and the brusher tender ior lateral rebollar bilaterally, there were erythematous irregular mucosal patches. As a result, using cold cup biopsy forceps, I sampled the posterior wall of the bladder in 3 different locations as wel l as 1 location in the left lateral wall and 2 locations in the right lateral wall. These specimens were sent for pathologic analysis, and then I carefully fulgurated the base of each of these biopsy s ites. I then decompressed his bladder and made a careful search for bleeding with the bladder decomp ressed, and additional fulguration was required due to ongoing minimal oozing. Eventually, with the bladder completely decompressed, the fulguration was sufficiently such that there was no ongoing oozi ng, and I turned my attention to the left ureteral orifice. Left retrograde pyelography: Using the 5-Martiniquais ureteral access catheter, I was able to easily cannulate the ureteral orifice and pass the 5-Martiniquais access catheter into the distal ureter. I then performed a retrograde pyelogram us ing a 70:30 mixture of Omnipaque and saline injected via the 5-Martiniquais ureteral access catheter. The ureter did delineate from the distal into the mid and proximal before easily entering the renal pelvi s with the dye. Each of the calyces was delineated, and while there was mild pelviectasis, there was no caliectasis. There were areas along the ureter that were slightly dilated with areas of narrowed ureter that was normal in caliber. No filling defects were noted along the entirety of the course o f the ureter or within the renal pelvis or within the calyces. As a result, the 5-Martiniquais ureteral ac cess catheter was removed. I then again surveyed the bladder biopsy sites for oozing and performed a dditional fulguration where necessary for minimal ooze that was occurring. I then left his bladder f ull and placed an 18-Martiniquais urethral Lakhani catheter with ease and 30 cc of sterile water in the ballo on. I then decompressed his bladder completely of fluid and urine before retrograde instilling 2 g o f gemcitabine chemotherapy into his bladder. The catheter was clamped keeping the chemotherapy insid e, and a leg bag was attached. He was then taken out of the lithotomy position, his genitalia was to weled off, and he was then awakened from general anesthesia. [facility] being transferred to the recovery room in good condition. Complications: None. Discharge Disposition: He should follow up in the Urology Clinic and potentially this may occur via a video visit within the next month to discuss the results of pathology and determine next steps and management if residual CIS or urothelial carcinoma is noted. Given his prior semi-BCG refractory sta te, any recurrence at this point would be suggestive of disease refractory to gemcitabine for which h claudia is getting maintenance therapy. Subsequent alternatives for management if there is recurrent carci noma or CIS within the limited to radical cystoprostatectomy. Consideration may be given for sequential gemcitabine, docetaxel chem otherapy. WR/MODL Voice ID: [id number] Report ID: [id number]
== END 2021-07-16 18:59 | disposition home or self-care (01) ==
LOC: OR 12:03
PROVIDERS: ATTEND Urology
PROC: 0TBB8ZX Excision of Bladder, Via Natural or Artificial Opening Endoscopic, Diagnostic (ICD-10-PCS; principal; 2021-07-16 14:00)
PROC: 3E0K705 Introduction of Other Antineoplastic into Genitourinary Tract, Via Natural or Artificial Opening (ICD-10-PCS; 2021-07-16 14:00)
DX: R31.0 Gross hematuria (principal); Z85.51 Personal history of malignant neoplasm of bladder; N32.9 Bladder disorder, unspecified; E11.9 Type 2 diabetes mellitus without complications; N40.1 Benign prostatic hyperplasia with lower urinary tract symptoms; I10 Essential (primary) hypertension; Z20.822 Contact with and (suspected) exposure to COVID-19
CPT/HCPCS: 52204; 51720; 93005; 85025; 80048; 36415; 85610; 88305; 51600; 74430; U0003; J2704; J3010 ×2; J7120; J2405 ×2; J0744

== ENCOUNTER 2021-09-10 08:30 | Day surgery (SDC) | payer OTHER ==
[2021-09-10] MEDS ORDERED: GEMCITABINE HCL 26.3 ML IVPB ONE (09:00)
[2021-09-10] MEDS ORDERED: OPIUM/BELLADONNA SUPPOS (30-16.2 MG) PR ONE (09:03)
[2021-09-10] MEDS ORDERED: LIDOCAINE JELLY 2% 5 ML SYRINGE TOP ONE (09:03)
[2021-09-10 09:59] LABS: Urine Bilirubin Negative (Negative); Urine Blood 3+ (Negative); Urine Clarity Cloudy (Clear); Urine Color Yellow (Yellow); Urine Glucose Negative (Negative); Urine Protein 2+ (Negative); Urine Urobilinogen 0.2 mg/dL (0.2-1.0); Urine pH 5.5 (5.0-7.0)
[2021-09-10 10:03] LABS: Urine RBC >50 /HPF (None Seen)
[2021-09-10 10:04] LABS: Urine Bacteria <20 /HPF (<20)
[2021-09-10 11:43] VITALS: BP 135/55; TEMP 98.7; O2SAT 95; BMI 34.0
--- NOTE | 2021-09-10 16:41 | P.OP ---
Preoperative diagnosis: High-grade theatre director urothelial carcinoma + CIS Postoperative diagnosis: Same Primary procedure: Instillation of gemcitabine 2 g intravesical chemotherapy Secondary procedure: Insertion of urethral Lakhani catheter Anesthesia: Lidocaine Urojet local Estimated blood loss: Negligible Operative Technique: The patient presented today having done well with prior installations and no issues with dysuria or specific signs of infection. Urinalysis was performed that was contaminated with squamous epithelial cells and not particularly suspicious for infection. He was supine on the procedure table, and his genitalia was prepped with Betadine and draped in standard fashion. Lidocaine Urojet was instilled intraurethrally for local anesthesia. He had previously been given a belladonna and opiate suppository for local anesthesia as well. A 18 Nepali urethral catheter was then passed via his urethra and into his bladder with ease. Approximately 20 cc was instilled in the balloon, and the catheter was allowed to decompress his bladder. I then draped his genitalia with absorbent towels and covered his body with a fluid impermeable drape before bringing the catheter through the hiatus and the drape. I then retrograde instilled 2 g of gemcitabine and 50 cc normal saline into his bladder with ease. He tolerated the instillation well and without obvious complication. The catheter was clamped and a leg bag was attached to it for ease of decompression. He was then allowed to rotate by one quarter turn every 15 minutes over the course of the next hour targeting minimum of 60 and maximum of 90 minutes of therapy. In the end, the fluid in urine was decompressed from his bladder into the attached leg bag, and the catheter was removed. He was discharged from the day surgery procedure area in good condition. Complications: None Discharge disposition: -Follow-up for outpatient cystoscopy 3 months from his last cystoscopy and biopsies Complications: None Drain(s): Urinary catheter Condition: Good
== END 2021-09-10 12:15 | disposition home or self-care (01) ==
LOC: DS 08:30
PROVIDERS: ATTEND Urology
PROC: 3E0K805 Introduction of Other Antineoplastic into Genitourinary Tract, Via Natural or Artificial Opening Endoscopic (ICD-10-PCS; principal; 2021-09-10)
DX: D09.0 Carcinoma in situ of bladder (principal)
CPT/HCPCS: 87088 ×2; 81001; 87086 ×2; 96365; 51720; J9201 ×2

== ENCOUNTER 2021-10-22 07:30 | Day surgery (SDC) | payer OTHER ==
[2021-10-22] MEDS ORDERED: LIDOCAINE JELLY 2% 5 ML SYRINGE TOP ONE (07:47)
[2021-10-22] MEDS ORDERED: OPIUM/BELLADONNA SUPPOS (30-16.2 MG) PR ONE (07:47)
[2021-10-22 08:11] LABS: Specific Gravity 1.014 (1.005-1.030); Urine Bilirubin NEGATIVE (Negative); Urine Blood 3+ (OVER) (Negative); Urine Clarity Turbid (Clear); Urine Color Colorless (Yellow); Urine Glucose NEGATIVE (Negative); Urine Protein 1+ (Negative); Urine RBC >50 /HPF (None Seen); Urine Urobilinogen Normal (Normal); Urine pH 6.5 (5.0-7.0)
[2021-10-22 08:14] VITALS: BP 135/52; TEMP 98; O2SAT 94; BMI 32.1
[2021-10-22] MEDS ORDERED: GEMCITABINE HCL 26.3 ML IVPB ONE (09:15)
--- NOTE | 2021-10-22 14:40 | P.OP ---
Preoperative diagnosis: High Grade insulation professional urothelial CA + CIS Postoperative diagnosis: same Primary procedure: flexible cystoscopy Secondary procedure: intravesical Gemcitabine 2g in 50cc NS Other procedure(s): insertion of urethral Lakhani catheter Anesthesia: B&O suppository and Lidocaine UroJet Estimated blood loss: negligible Findings: erythematous and bleeding mucosa posteriorly and in the trigone Operative Technique: The patient was consented before being placed supine on the procedure table with absorbent pads beneath his buttocks. His genitalia was prepped using Betadine and draped in standard fashion. Lidocaine Urojet was applied intraurethrally for local anesthesia. Of note, he had been given a belladonna and opiate suppository about 1 hour prior. Preprocedure urine culture was unremarkable for growth, and the patient was treated with 7 days of cefpodoxime as well as fluconazole. While he did note some improvement in the routine dysuria, despite the negative culture results, he felt the dysuria had begun to return within the last 24 hours since he finished the antibiotics last week. The case was begun using the 16 Citizen Of [place] flexible cystoscope to traverse the urethra using normal saline irrigation and into the bladder with ease. The bladder neck was patent, as had previously been observed from resection performed in that area. In the region of the trigone, there was friable appearing mucosa with some slight bleeding occurring in that region. Posteriorly, there was also an erythematous patch of mucosa of uncertain significance. The remainder of the bladder was free of any papillary mucosal lesion, foreign bodies or stones. The ureteral orifices were orthotopic in location. The urethra was surveyed on the way out and was free of any papillary mucosal lesion or stricture. I then removed the flexible cystoscope and replaced an 18 Citizen [place] Lakhani catheter into his bladder with ease. 10 cc of sterile water and 10 cc of air was placed in the balloon to distend it. The catheter was allowed to decompress, and the patient was further draped with a fluid impermeable barrier. Once his bladder was completely decompressed, I then retrograde instilled gemcitabine 2 g and 50 cc normal saline, which he tolerated well. The catheter was clamped, connected to a leg bag, and the patient was allowed to rotate by one quarter turn every 15 minutes over the course of the next 60 minutes, targeting about 90 minutes of total therapy. In the end, the gemcitabine and urine was evacuated from his bladder into the leg bag, and the leg bag and catheter associated were removed and discarded into chemotherapeutic waste. He tolerated the procedure well and without complications. Discharge disposition: While the friable and bleeding mucosa seen could simply represent inflammatory patches, given the history of CIS and the potential that this represents CIS, unfortunately, cystoscopy and bladder biopsies will again be required /recommended. As such, I counseled the patient and his that this is the recommendation, and they agreed. We would schedule him for operative evaluation via cystoscopy and bladder biopsies in November and plan to administer his monthly dose of gemcitabine at that time. Complications: None Condition: Good
== END 2021-10-22 10:30 | disposition home or self-care (01) ==
LOC: DS 07:30
PROVIDERS: ATTEND Urology
PROC: 3E0K705 Introduction of Other Antineoplastic into Genitourinary Tract, Via Natural or Artificial Opening (ICD-10-PCS; principal; 2021-10-22)
PROC: 3C1ZX8Z Irrigation of Indwelling Device using Irrigating Substance, External Approach (ICD-10-PCS; 2021-10-22)
DX: D09.0 Carcinoma in situ of bladder (principal)
CPT/HCPCS: 51720; 87088; 81001; 87086; 96365; 51700; J9201

== ENCOUNTER 2021-12-17 08:45 | Day surgery (SDC) | payer OTHER ==
[2021-12-17] MEDS ORDERED: LIDOCAINE JELLY 2% 5 ML SYRINGE TOP ONE (09:18)
[2021-12-17] MEDS ORDERED: OPIUM/BELLADONNA SUPPOS (30-16.2 MG) PR ONE (09:18)
[2021-12-17 09:59] VITALS: TEMP 98.6; O2SAT 94; BMI 39.1
[2021-12-17 10:30] LABS: Urine Bilirubin NEGATIVE (Negative); Urine Blood 2+ (Negative); Urine Clarity Turbid (Clear); Urine Color Light-Yellow (Yellow); Urine Glucose NEGATIVE (Negative); Urine Mucus Slight /HPF (None Seen); Urine Protein 1+ (Negative); Urine RBC >50 /HPF (None Seen); Urine Urobilinogen Normal (Normal); Urine WBC Clump Occasional /HPF (None Seen); Urine pH 5.5 (5.0-7.0)
[2021-12-17] MEDS ORDERED: GEMCITABINE HCL 26.3 ML IVPB ONE (11:30)
[2021-12-17 15:25] VITALS: BP 115/44
--- NOTE | 2021-12-17 18:27 | P.OP ---
Preoperative diagnosis: High-grade noninvasive urothelial carcinoma the bladder + CIS Postoperative diagnosis: Same Primary procedure: Instillation of intravesical gemcitabine chemotherapy 2 g and 50 cc normal Secondary procedure: Insertion of urethral Lakhani catheter Anesthesia: Lidocaine Urojet Estimated blood loss: Negligible Operative Technique: He was consented before being placed supine on the procedure table with absorbent pads beneath his buttocks. His genitalia was prepped with Betadine and draped in standard fashion. A lidocaine Urojet was applied intraurethrally for local anesthesia. Of note, he had been given a belladonna and opiate suppository about 1 hour prior to the procedure. Prior cultures were significant only for inflammation. No growth has been identified on multiple cultures. The case was then begun using a 16 D[place] Lakhani catheter which was placed via the urethra into his bladder. Approximately 20 cc of sterile water was placed into the balloon and the bladder was decompressed into a floor bag. I then draped his genitalia with blue towels and brought the catheter through a hiatus made and a fluid impermeable drape. The patient was given a face shield and his body was covered with the drape previously applied. I then retrograde instilled 2 g of gemcitabine and 50 cc normal saline into his bladder with ease. He tolerated the instillation well and without complications. The catheter was then connected to a leg bag and the catheter was clamped using a Tanya clamp. The fluid was then allowed to remain within his bladder while he rotated by one quarter turn every 15 minutes over the course of about an hour, targeting about 90 minutes of total therapy. He tolerated the procedure well and without complications. In the end, the catheter was removed from his bladder after the chemotherapy had been decompressed into the attached leg back and the entire set up was discarded into chemotherapeutic waste. Complications: None Drain(s): Urinary catheter Condition: Good
== END 2021-12-17 13:12 | disposition home or self-care (01) ==
LOC: DS 08:45
PROVIDERS: ATTEND Urology
PROC: 3E0K805 Introduction of Other Antineoplastic into Genitourinary Tract, Via Natural or Artificial Opening Endoscopic (ICD-10-PCS; principal; 2021-12-17)
DX: D09.0 Carcinoma in situ of bladder (principal); Z88.1 Allergy status to other antibiotic agents
CPT/HCPCS: 87088; 81001; 87086; 96365; 51720; J9201

== ENCOUNTER 2022-01-14 08:05 | Day surgery (SDC) | payer OTHER ==
[2022-01-14] MEDS ORDERED: OPIUM/BELLADONNA SUPPOS (30-16.2 MG) PR ONE (08:14)
[2022-01-14] MEDS ORDERED: LIDOCAINE JELLY 2% 5 ML SYRINGE TOP ONE (08:15)
[2022-01-14 09:04] LABS: Specific Gravity 1.013 (1.005-1.030); Urine Bilirubin NEGATIVE (Negative); Urine Blood 3+ (OVER) (Negative); Urine Clarity Turbid (Clear); Urine Color Colorless (Yellow); Urine Glucose NEGATIVE (Negative); Urine Protein 1+ (Negative); Urine RBC >50 /HPF (None Seen); Urine Urobilinogen Normal (Normal); Urine WBC Clump Rare /HPF (None Seen); Urine pH 5.5 (5.0-7.0)
[2022-01-14] MEDS ORDERED: GEMCITABINE HCL 26.3 ML IVPB ONE (09:30)
[2022-01-14 09:33] VITALS: BP 114/43; TEMP 97.1; O2SAT 95; BMI 39.1
[2022-01-14] MEDS ORDERED: SMZ./TMP. 800/160 MG TABLET PO ONE (11:30)
--- NOTE | 2022-01-14 15:27 | P.OP ---
Preoperative diagnosis: High-grade noninvasive urothelial carcinoma the bladder + CIS Postoperative diagnosis: Same Primary procedure: Instillation of gemcitabine 2 g in 50 cc normal saline intravesical chemoth Secondary procedure: Placement of urethral Lakhani catheter Anesthesia: Lidocaine Urojet Estimated blood loss: Negligible Specimen: None Operative Technique: Consent was obtained before he was placed supine on the procedure table with absorbent pads beneath his buttocks. His genitalia was prepped with Betadine and draped in standard fashion. A lidocaine Urojet was applied intraurethrally for local anesthesia. Of note, he had been given a belladonna and opiate suppository about 1 hour prior to the procedure. He had no significant change in his urinary symptoms, noting only a chronic degree of mild dysuria, which has been present despite negative prior biopsies significant only for inflammation. No growth has been identified on multiple prior cultures with the same symptomatology. The case was then begun by placing a 16 Spanish urethral Lakhani catheter via his urethra into his bladder. Approximately 20 cc of sterile water was placed into the balloon, and the bladder was decompressed into a floor bag. I then draped his genitalia with blue towels and brought the catheter through a hiatus made in a fluid impermeable drape. The patient was then given a face shield, and his body was covered with a drape. I then retrograde instilled 2 g of gemcitabine in 50 cc normal saline into his bladder with ease. He tolerated the instillation well and without complications, noting only a mild increase and burning sensation. The catheter was then connected to a leg bag after being clamped using a Tanya clamp. The fluid was then allowed to remain in situ while he rotated by one quarter turn every 15 minutes over the course of about an hour, targeting 90 minutes of total therapy. He tolerated the procedure well and without complications. In the end, the catheter was decompressed of chemotherapy and urine, before it was removed from his bladder and discarded into chemotherapeutic waste. Complications: None Drain(s): Urinary catheter Condition: Good
== END 2022-01-14 12:35 | disposition home or self-care (01) ==
LOC: DS 08:05
PROVIDERS: ATTEND Urology
PROC: 3E0K705 Introduction of Other Antineoplastic into Genitourinary Tract, Via Natural or Artificial Opening (ICD-10-PCS; principal; 2022-01-14)
DX: D09.0 Carcinoma in situ of bladder (principal)
CPT/HCPCS: 87088; 81001; 87086; 96365; 51720; J9201

== ENCOUNTER 2022-03-18 06:21 | Day surgery (SDC) | payer OTHER ==
[2022-03-03 10:16] LABS: Absolute Lymphocytes (CBC) 2.2 K/uL (0.7-4.9); Hematocrit 34.2 % (39.6-49.0); Lymphocytes % 25.3 % (15.3-44.8); MCV 89.4 fL (80-100); MPV 8.9 fL (7.6-11.3); Protime INR 0.97; RBC Red Blood Cell Count 3.82 M/uL (4.33-5.43)
[2022-03-03 10:23] LABS: Potassium 4.8 mmol/L (3.5-5.1)
[2022-03-18] MEDS ORDERED: Ringers Lactate 1,000 ML IV ONE (06:53)
[2022-03-18 06:56] LABS: Urine Bacteria None Seen /HPF (<20); Urine Mucus Slight /HPF (None Seen); Urine RBC >50 /HPF (None Seen); Urine WBC Clump Rare /HPF (None Seen)
[2022-03-18 07:01] LABS: Specific Gravity 1.013 (1.005-1.030); Urine Bilirubin NEGATIVE (Negative); Urine Blood 3+ (Negative); Urine Clarity Clear (Clear); Urine Color Light-Yellow (Yellow); Urine Glucose NEGATIVE (Negative); Urine Protein 1+ (Negative); Urine Urobilinogen Normal (Normal); Urine pH 5.5 (5.0-7.0)
[2022-03-18] MEDS ORDERED: NS 0.9% VIAL 10 ML ONE (07:17)
[2022-03-18] MEDS ORDERED: propofoL 200 MG/20 ML VIAL IV ONE (07:17)
[2022-03-18] MEDS ORDERED: FENTANYL CITR 100 MCG/2 ML ONE (07:17)
[2022-03-18] MEDS ORDERED: LIDOCAINE 1% MPF 5 ML VIAL ONE (07:17)
[2022-03-18] MEDS ORDERED: SUCCINYLCHOLINE 20 MG/ML (10 ML) IV ONE (07:20)
[2022-03-18] MEDS ORDERED: CEFAZOLIN SODIUM 2 GM/VIAL ONE (07:40)
[2022-03-18] MEDS ORDERED: ONDANSETRON 4 MG/2 ML VIAL ONE (07:57)
[2022-03-18] MEDS ORDERED: NA CHLORIDE 0.9% 1,000 ML ONE (07:59)
[2022-03-18] MEDS ORDERED: GEMCITABINE HCL 200 MG/5.26 ML VIAL IS ONE ×2 (08:00)
[2022-03-18] MEDS ORDERED: EPHEDRINE SULF 50 MG/ML VIAL ONE (08:04)
[2022-03-18] MEDS: GEMCITABINE HCL 26.3 ML IS ONE ×2 (08:46→09:00)
--- NOTE | 2022-03-18 08:51 | RAD REPORT ---
EXAM DESCRIPTION: RAD - Urethrocystogrphy Retrograde - 03/18/2022 8:39 am FINDINGS: There are 4 portable KUB images obtained during fluoroscopic assisted retrograde left uret er evaluation. No suspicious or unexpected finding. Fluoro time was 0.10 minutes
[2022-03-18] MEDS: HYDROMORPHONE HCL 1 MG/ML INJ ONE ×2 (09:18→09:31)
[2022-03-18] MEDS ORDERED: HYDROCODONE/APAP 5/325 MG TAB PO PRN (11:04)
[2022-03-18 14:24] VITALS: BP 134/59; TEMP 97.2; O2SAT 96
--- NOTE | 2022-03-18 16:32 | OP ---
Surgeon: PING WOOD Preoperative Diagnoses: 1.Gross hematuria. 2.BPH with lower urinary tract obstruction and symptoms as well as incomplete emptying of the bladde r. 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 5.Status post right nephroureterectomy. Postoperative Diagnoses: 1.Gross hematuria. 2.BPH with lower urinary tract obstruction and symptoms as well as incomplete emptying of the bladde r. 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 5.Status post right nephroureterectomy. Principal Procedures: 1.Cystoscopy with bladder biopsies and fulguration. 2.Left retrograde pyelography. 3.Prostatic urethral lift/UroLift with 6 implants placed. 4.Instillation of gemcitabine 2 g and 50 cc of normal saline. Indication For Procedure: Mr. Vee is a 76-year-old gentleman with the above diagnoses and lili or operative surgical procedures performed. 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 He subsequently underwent right robot-assisted laparoscopic converte d to open nephroureterectomy with a very fused kidney and ureter given the prior extravasation of uri ne and urothelial disease. He has had persistent irritative lower urinary symptoms of dysuria and edgar s had persistent intermittent gross hematuria with erythematous mucosa of the bladder requiring inter mittent repeat evaluations that have all been negative for recurrent disease since the gemcitabine in travesical chemotherapy has been given. He presents today for repeat evaluation to confirm absence o f CIS given the absence of any papillary urothelial neoplasm noted, and given his chronic kidney dise ase, we will evaluate the left upper tract of this solitary left renal unit, and proceed with the las t monthly maintenance dose of intravesical gemcitabine chemotherapy. Of note, preoperative CT imagin g was relatively unremarkable with the exception of a 13 mm nodular lesion noted in the region of the nephrectomy bed on the right, but beneath a lumbar vein just lateral to the IVC in an area posterior to any dissection that would have been performed with regard to the kidney removal. Procedure In Detail: The patient was consented in the preoperative holding area before being transfe rred to operative suite where general anesthesia was induced. He was given Ancef 2 g IV antimicrobia l prophylaxis and pneumo boots were provided for DVT prophylaxis. He was placed in the lithotomy pos ition, padded and secured to the table appropriately, and his genitalia was prepped with Hibiclens an d he was draped in standard fashion. The case was begun using a 22-Welsh rigid cystoscope to yaritza se the urethra and into the bladder with ease. The bladder was decompressed of fluid and urine and s urveyed in its entirety. Again, there were no papillary mucosal lesions, foreign bodies or stones, b ut there were erythematous patches largely in the posterior wall of the bladder. There was mild eryt justyna in the region of the trigone and in the left lateral wall. The left ureteral orifice had previo usly been resected, but was patent and effluxing clear yellow urine. With some difficulty, I was abl e to cannulate using the tip of a Sensor wire and a 5-Welsh ureteral access catheter. There was no obstruction, but the angulation required to enter the ureteral orifice given its prior resected natur e, required a bit of manipulation. Ultimately, I was able to easily navigate a 5-Welsh ureteral acc ess catheter into the distal ureter and performed a retrograde pyelogram. Left retrograde pyelography: Using a 70:30 mixture of Omnipaque and saline, contrast was injected via the 5-Welsh ureteral access catheter and did propagate up an irregular and interspaced dilated component of the left ureter befo re entering a renal pelvis, which was sharp without pelviectasis and the calyces were also sharp with out signs of caliectasis. They filled nicely with no evidence of filling defect, and there was no ur eteral filling defect noted either. As a result, I removed the 5-Welsh ureteral access catheter and there was prompt efflux of contrast. We observed for the timing of drainage to assess the T1 half o f drainage, and within 1 minute, over 50% of the contrast had evacuated the collecting system, and by 5 minutes, it was 95% evacuated indicative of complete absence of obstruction. As a result, I then turned my attention to the bladder. Using cold cup biopsy forceps, I took multiple samples in the posterior and right posterior wall of t he bladder and sent this for pathologic analysis as a posterior wall bladder biopsies. Additional bi opsy was taken from the trigone and from the left lateral wall. Careful fulguration was required at multiple points given the patient's propensity to easily bleed and obscure the vision. Extensive ful guration was required in that posterior zone where the mucosa was largely hemorrhagic and inflamed. However, in the end, I was able to achieve complete hemostasis with the bladder completely decompress ed. I then switched the 22-Welsh rigid cystoscope for a 20-Welsh UroLift sheath with a visual obtu rator. The UroLift was then performed. Using the first implant targeted at the apical region of the prostat e to the left of the verumontanum, the first implant was targeted between the 10 and 11 o'clock regio n at the level of the verumontanum. 10 degrees of compression was achieved and the trigger was pulle d delivering the needle through the surface of the prostate. An additional 10 degrees of compression was obtained lateralizing the tissue and ensuring the needle delivered completely through the capsul ar surface of the prostate. A second pull of the trigger was then pulled to deliver the capsular tab , a third pull further compress the tissue before, a fourth pole completely retracted the needle and applied the implant to the mucosal surface of the prostate after I navigated the scope back to the ri dline and advanced 2-3 mm toward the bladder neck before centering the suture in the midline of the d elivery bay and cutting the suture. With the capsular tab appropriately deployed, I then employed a similar implant this time on the right side at the level of the verumontanum. Visual obturator inspe ction of the area revealed significant residual tissue emanating from the mid gland lateral zone of t he prostate. The bladder neck had previously been resected in evaluation of his urothelial carcinoma . As a result, an additional implant was placed on the left and the right in the mid zone of the pro state between the 1 and 2 o'clock position on the left and the 10 and 11 o'clock position on the righ t. Repeat survey revealed some residual tissue in between the implants placed at the apex and the mi dzone of the prostate, so a fifth and a sixth implant were placed on the left side in a stacked posit ion just proximal to the apical most implant and a 6th implant was placed in a stack position lateral izing some tissue between the apical and the midzone implant on the right side. In the end, a contin uous anterior channel had been created with the bladder completely decompressed and the efflux of uri ne allowed to occur. There was minimal hematuria from the UroLift, so a 20-Welsh urethral Lakhani cat heter was placed into his bladder with ease. I placed 30 cc of sterile water in the balloon, and the n retrograde instilled approximately 52 cc of 2 g of gemcitabine in normal saline. The catheter was clamped leaving the chemotherapy in place and connected to a leg bag for subsequent evacuation. The patient's genitalia were toweled off using non-permeable green towels, and he was taken out of the li thotomy position before being awakened from general anesthesia, transferred to a stretcher and then t ransferred to the recovery room in good condition. Complications: None. Discharge Disposition: He will be allowed to keep the chemotherapy for at least 60 minutes starting about 90 minutes of total therapy before will be evacuated into the associated leg bag. We will then give him an active voiding trial before discharging him home. Subsequent followup will be required with a PET-CT scan obtained prior to that to evaluate the 13 mm nodule seen posterior to the right ne phrectomy resection site. FIDELIA/AIDA Voice ID: [id number] Report ID: [id number]
== END 2022-03-18 12:40 | disposition home or self-care (01) ==
LOC: OR 06:21
PROVIDERS: ATTEND Urology
PROC: 0T7D8DZ Dilation of Urethra with Intraluminal Device, Via Natural or Artificial Opening Endoscopic (ICD-10-PCS; 2022-03-18)
PROC: 3E0K705 Introduction of Other Antineoplastic into Genitourinary Tract, Via Natural or Artificial Opening (ICD-10-PCS; 2022-03-18)
PROC: 0TBB8ZX Excision of Bladder, Via Natural or Artificial Opening Endoscopic, Diagnostic (ICD-10-PCS; principal; 2022-03-18 07:30)
DX: N40.1 Benign prostatic hyperplasia with lower urinary tract symptoms (principal); N13.8 Other obstructive and reflux uropathy; R33.8 Other retention of urine; R31.0 Gross hematuria; Z85.51 Personal history of malignant neoplasm of bladder; Z85.528 Personal history of other malignant neoplasm of kidney
CPT/HCPCS: 87088 ×2; 85025; 81001; 87086 ×2; 80048; 36415; 85610; 88305; 74450; 51610; 52204; 52441; 52442 ×5; 51720; J2704; J0330; J2001; J3010; A4216; J1170; J9201; J7120; J7030; J2405

== ENCOUNTER 2023-03-31 08:42 | Day surgery (SDC) | payer OTHER ==
[2023-03-31] MEDS: Ringers Lactate 1,000 ML IV ONE (09:10)
[2023-03-31] MEDS ORDERED: ONDANSETRON 4 MG/2 ML VIAL ONE (10:40)
[2023-03-31] MEDS ORDERED: EPHEDRINE SULF 50 MG/ML VIAL ONE (10:40)
[2023-03-31] MEDS ORDERED: FENTANYL CITR 100 MCG/2 ML ONE (10:40)
[2023-03-31] MEDS ORDERED: propofoL 200 MG/20 ML VIAL IV ONE (10:40)
[2023-03-31] MEDS ORDERED: LIDOCAINE 1% MPF 5 ML VIAL ONE (10:40)
[2023-03-31] MEDS: CEFAZOLIN SODIUM 2 GM/VIAL ONE (10:56)
[2023-03-31] MEDS ORDERED: CODEINE 30MG/APAP 300MG TAB PO PRN (11:59)
[2023-03-31] MEDS: FENTANYL CITR 100 MCG/2 ML ONE (12:05)
[2023-03-31] MEDS: PHENAZOPYRIDINE 100MG TAB PO ONE (13:10)
[2023-03-31] MEDS ORDERED: PHENAZOPYRIDINE 100MG TAB PO ONE (13:10)
[2023-03-31 13:48] VITALS: BP 139/65; TEMP 97.4
[2023-03-31 14:15] VITALS: O2SAT 97
--- NOTE | 2023-03-31 16:38 | EKG ---
Test Date: 2023-03-31 Test Time: 09:34:23 Clinical Tech: PREO MEASUREMENT RESULTS: Intervals: Rate: 73 CT: 178 QRSD: 154 QT: 448 QTc: 493 [place]: P: 64 CT: 178 QRS: -23 T: 13 INTERPRETIVE STATEMENTS: Normal sinus rhythm Right bundle branch block Minimal voltage criteria for LVH, may be normal variant Abnormal ECG Compared to ECG 11/15/2021 15:03:24 Left-axis deviation no longer present Electronically Signed On 03-31-23 16:37:25 FRONT DESK ASSISTANT by Eliazar Calderon
--- NOTE | 2023-04-01 03:26 | OP ---
Surgeon: PING WOOD Preoperative Diagnoses: 1.Gross hematuria. 2.Irritative lower urinary tract symptoms with dysuria. 3.History of carcinoma in situ of the bladder. 4.History of urothelial carcinoma of the bladder. 5.History of right upper tract urothelial carcinoma. 6.Bladder lesion. Postoperative Diagnoses: 1.Gross hematuria. 2.Irritative lower urinary tract symptoms with dysuria. 3.History of carcinoma in situ of the bladder. 4.History of urothelial carcinoma of the bladder. 5.History of right upper tract urothelial carcinoma. 6.Bladder lesion. Principal Procedures: 1.Cystoscopy with bladder biopsies (5) and fulguration. 2.Urethral Lakhani catheter placement. Indication For Procedure: Mr. Vee is well known to me with a history of right upper tract uro thelial carcinoma and CIS as well as urothelial carcinoma of the bladder. He underwent local intrave sical treatments of his bladder cancer with resolution of the disease present there, but ultimately r equired right nephroureterectomy, which was performed in an open fashion due to extensive fibrosis. He has dealt with significant bothersome irritative lower urinary symptoms with severe burning that h as been managed with alfuzosin as well as VESIcare successfully decreasing his pain from 9/10 down to 3 to 4/10 in intensity. However, he had gross hematuria with the presence of erythematous patches w ithin his bladder, potentially suspicious for CIS. As a result, he was counseled on the need for ope rative evaluation and presents today for such. Procedure In Detail: The patient was consented in the preoperative holding area before being transfe rred to the operative suite where general anesthesia was induced. He was given Ancef 1 g IV antimicr obial prophylaxis, and pneumo boots were provided for DVT prophylaxis. He was placed in the lithotom y position, padded and secured to the table appropriately, and his genitalia were prepped with Hibicl ens before being draped in standard fashion. The case was begun using a 22-Yemeni rigid cystoscope t o traverse the urethra and into the bladder with ease. Evidence of the prior UroLift implants was th ere with nice lateralization of the intraluminally intruding prostatic tissue. Upon entry into the b ladder, there was evidence of prior resection site scar, but in the dome anteriorly, there was an germán thematous patch approximately 2 to 3 cm in diameter and ovoid in appearance that was oozing blood. A dditionally, in the left lateral wall, there was an additional patch of erythematous mucosa that was similarly oozing. As a result, using cold cup biopsy forceps, I sampled each of those sites with 3 b iopsies taken from the anterior dome lesion and an additional 2 biopsies taken from the left lateral wall lesion. I then fulgurated the base of each of these lesions carefully and extensively to ensure complete resolution of the hematuria. I decompressed his bladder completely to ensure all blood was removed, and ensured the bladder spots were indeed hemostatic. I then retrograde filled his bladder before removing the scope and placing an 18-Yemeni coude catheter into his bladder with ease. The r eturning drainage of urine was crystal clear and was connected to a leg bag. He was then taken out o f the lithotomy position, awakened from general anesthesia, transferred to a stretcher, and then retana sferred to the recovery room in good condition. Complications: None. Discharge Disposition: We will give him a voiding trial today if he so desires, otherwise, I would p refer him to keep the catheter for tonight to give him a period of bladder rest with planned voiding trial to be conducted tomorrow. He could take the catheter out tomorrow morning at home. I sent a p rescription for Keflex for 3 days 250 mg q.8 hours to his pharmacy. He had pain medicines already at home. With significant improved urinary symptoms on the combination of the alfuzosin and VESIcare, we discussed potentially resuming the [place] to better coat the mucosa and try to further improve hi s burning urinary symptoms. Subsequent followup should be established in approximately 2 to 3 weeks to discuss the results of the pathology and any next steps that can be performed to manage his irritative LUTS. WR/MODL Voice ID: [id number] Report ID: [id number]
== END 2023-03-31 13:20 | disposition home or self-care (01) ==
LOC: OR 08:42
PROVIDERS: ATTEND Urology
PROC: 0TBB8ZX Excision of Bladder, Via Natural or Artificial Opening Endoscopic, Diagnostic (ICD-10-PCS; principal; 2023-03-31 10:30)
DX: N30.01 Acute cystitis with hematuria (principal); D09.0 Carcinoma in situ of bladder; R31.0 Gross hematuria; R30.0 Dysuria; N32.9 Bladder disorder, unspecified; Z85.51 Personal history of malignant neoplasm of bladder
CPT/HCPCS: 52204; 93005; 88304; J2704; J2001; J3010 ×2; J2405; J7120